=== PATIENT | male | born 1945 | race Caucasian/White ===

== ENCOUNTER 2021-04-13 03:01 | Emergency (ER) | payer OTHER, MEDICARE ==
[2021-04-13] MEDS ORDERED: Azithromycin 250 MG Tab PO ONE (04:09)
--- NOTE | 2021-04-13 04:15 | EDM.PDOC ---
ED HPI GENERAL MEDICAL PROBLEM - General Chief Complaint: General Stated Complaint: POST COVID ISSUES Time Seen by Provider: 04/13/21 04:09 - History of Present Illness INITIAL COMMENTS - FREE TEXT/NARRATIVE: HISTORY AND PHYSICAL: History of present illness: This is a 75-year-old gentleman who presents ER today to be evaluated after being diagnosed with Covid yesterday. Patient reports that he had a cough for approximately 1 month with no new symptoms. Patient reports that he follow got tested yesterday he has his family told that he probably has Covid given his symptoms. Patient reports that he had a dark productive cough over the last several days. Patient denies any recent fevers, shakes, chills, nausea, vomiting, diarrhea, change in taste or smell, generalized weakness, muscle aches. Patient has any headache or rhinorrhea. Patient reports no new symptoms within the last month. Review of systems: As per history of present illness and below otherwise all systems reviewed and negative. Past medical history: As per history of present illness and as reviewed below otherwise noncontributory. Surgical history: As per history of present illness and as reviewed below otherwise noncontributory. Social history: No reported history of drug abuse. Family history: As per history of present illness and as reviewed below otherwise noncontributory. Physical exam: This patient was seen and evaluated during the 2019 SARS-CoV-2 novel coronavirus pandemic period. Community viral transmission is ongoing at time of this encounter and the emergency department is operating under pandemic response procedures. Constitutional: Patient is oriented to person, place, and time. Appears well- developed and well-nourished. No distress. HEENT: Moist mucous membranes Head: Normocephalic and atraumatic Eyes: Right eye exhibits no discharge. Left eye exhibits no discharge. No scleral icterus Neck: Normal range of motion. No tracheal deviation present. Cardiovascular: Normal rate and regular rhythm. Pulmonary: Effort normal, no respiratory distress. No wheezing rales or rhonchi Abdominal: No distention Musculoskeletal: Normal range of motion Neurologic: Alert and oriented to person, place and time. Skin: [place], warm and dry. Psychiatric: Normal mood and affect. Behavior is normal. Judgment and thought content normal. Nursing note and vital signs have been reviewed Pulse ox 98% on room air. Patient speaking in full sentences without difficulty. Diagnostics: Chest Xray: Normal cardiac silhouette No infiltrates or effusions identified. No PTX No evidence of acute bony fracture. As interpreted by ER MD: Denis Franco: Zithromax Assessment and plan: 75-year-old gentleman who presents ER today secondary to wanting a checkup after being diagnosed with coronavirus. Patient did not get his Covid vaccine because he "does not want to put anything in his body ". I have discussed with the patient start him on Regeneron which he was amenable to however patient does not meet criteria secondary to no new symptoms that he has had over the last month. Patient reports that all the symptoms that he has currently he has had for approximately 1 month. I have discussed with the patient that he will need to purchase a pulse oximeter to keep a close eye on his oxygen level and to return to the ED if the oxygen level drops below 90%. If he is unable to obtain a pulse oximeter he needs to return to the ED if he starts having increasing shortness of breath. Patient has been instructed to follow-up with his primary care physician within the next week by phone for reevaluation. Reassessment at the time of disposition demonstrates that the patient is in no acute distress. The patient has remained stable throughout the entire ED visit and is without objective evidence for acute process requiring urgent intervention or hospitalization. The patient is stable for discharge, counseling is provided as documented above, discussed symptomatic treatment and specific conditions for return. I have spoken with the patient/caregiver and discussed todays findings, in addition to providing specific details for the plan of care. Questions are answered and there is agreement with the plan. Definitive disposition and diagnosis as appropriate pending reevaluation and review of above. - Related Data Allergies Allergy/AdvReac Type Severity Reaction Status Date / Time No Known Allergies Allergy Verified 05/12/18 12:11 Home Meds: Home Meds Amoxicillin 500 mg PO BID 05/12/18 [History] Cyanocobalamin (Vitamin B-12) [Cyanocobalamin Injection] 1,000 mcg IM ASDIRECTED 05/12/18 [History] Finasteride [Proscar] 5 mg PO DAILY 05/12/18 [History] Pantoprazole Sodium 40 mg PO DAILY 05/12/18 [History] Phenylephrine-Guaifenesin 10 - 40 mg PO ASDIRECTED 05/12/18 [History] Tamsulosin HCl 0.4 mg PO DAILY 05/12/18 [History] Azithromycin [Zithromax] 250 mg PO DAILY #4 tablet 04/13/21 [Rx] Past Medical History HEENT History: Reports: Hard of Hearing, Other (See Below) Other HEENT History: wears glasses, has upper and lower permanent dental bridge, has hearing aides Respiratory History: Reports: Sleep Apnea Other Respiratory History: recently tested for sleep apnea- just getting set up with CPAP Genitourinary History: Reports: BPH Neurological History: Reports: Concussion - Infectious Disease History Infectious Disease History: Reports: None - Past Surgical History GI Surgical History: Reports: EGD Other GI Surgeries/Procedures: was told he has "excess stomach acid" Other Male Surgeries/Procedures: hx of excision of undecended testicle, excision of Gynecomastia Social & Family History - Family History Family Medical History: No Pertinent Family History - Tobacco Use Tobacco Use Status *Q: Never Tobacco User - Caffeine Use Caffeine Use: Reports: Coffee - Recreational Drug Use Recreational Drug Use: No ED ROS GENERAL - Review of Systems Review Of Systems: See Below ED EXAM, GENERAL - Physical Exam Exam: See Below Course - Vital Signs Last Recorded V/S: Last Vital Signs Temp 97.8 F 04/13/21 03:04 Pulse 60 04/13/21 03:10 Resp 19 04/13/21 03:10 BP 131/67 04/13/21 03:10 Pulse Ox 94 L 04/13/21 03:10 - Orders/Labs/Meds Orders: Active Orders 24 hr Category Date Time Status Chest 2V [CR] Stat Exams 04/13/21 03:14 Taken Azithromycin [Zithromax] Med 04/13/21 04:09 Once 500 mg PO Q24H ONE Departure - Departure Time of Disposition: 04:13 Disposition: Home, Self-Care 01 Condition: Good Clinical Impression: COVID-19 virus infection - Discharge Information Instructions: What You Should Know About COVID-19 to Protect Yourself and Others - [facility], How to Wear and Take Off Your Mask - [facility] (08/24/2020), 10 Things You Can Do to Manage Your COVID-19 Symptoms at Home - [facility] (12/08/2020), COVID- 19: Quarantine vs. Isolation - [facility] (05/11/2020) Referrals: PCP,None [Primary Care Provider] - Additional Instructions: Your seen and evaluated in the ER today secondary to a recent diagnosis of coronavirus. Currently her pulse ox is 98 to 99% on room air. At this time, there is no definitive treatment for coronavirus. Given the concern regarding the increased cough, I will go ahead and get you started on some Zithromax which is an antibiotic. Please get that prescription filled and take it as directed. You should also obtain a pulse oximeter to keep an eye on your oxygen level. Please return to the ER if your oxygen level drops below 90%. If you do not have a pulse oximeter at home, please return to the ER immediately if you start having worsening shortness of breath. 1. Your COVID-19 screening is positive. That means you do have the coronavirus and you are considered contagious. Your vital signs and oxygen saturation are well enough that you were able to monitor your symptoms at home. Continue to monitor for trouble breathing, new confusion or inability to arouse, bluish lips or face or any of the other symptoms we discussed -if this occurs please return to the emergency room. 2. Please self quarantine over the next 10 days. Inform any persons that you have been in contact with since you started becoming symptomatic that you have tested positive; they should be made aware and take the appropriate steps as needed. 3. You can take NyQuil during the evening to help get a restful night sleep. May alternate Tylenol and ibuprofen as needed for pain and fever management. 4. The [facility] department will be calling you and following up with you. The [place] COVID 19 Hotline phone number , They are open Friday - Friday 7am - 7pm. Follow up with your primary care provider for re-evaluation and re-testing after the 10 day quarantine and discuss when you should be seen. The following information is given to patients seen in the emergency department who are being discharged to home. This information is to outline your options for follow-up care. We provide all patients seen in our emergency department with a follow-up referral. The need for follow-up, as well as the timing and circumstances, are variable depending upon the specifics of your emergency department visit. If you don't have a primary care physician on staff, we will provide you with a referral. We always advise you to contact your personal physician following an emergency department visit to inform them of the circumstance of the visit and for follow-up with them and/or the need for any referrals to a consulting specialist. The emergency department will also refer you to a specialist when appropriate. This referral assures that you have the opportunity for follow-up care with a specialist. All of these measure are taken in an effort to provide you with optimal care, which includes your follow-up. Under all circumstances we always encourage you to contact your private physician who remains a resource for coordinating your care. When calling for follow-up care, please make the office aware that this follow-up is from your recent emergency room visit. If for any reason you are refused follow-up, please contact the [facility] Emergency Department at and asked to speak to the emergency department charge nurse. [facility] [address] [place] [address] [id number] [address] Sepsis Event Note (ED) - Focused Exam Vital Signs: Vital Signs Temp Pulse Resp BP Pulse Ox 04/13/21 03:10 60 19 131/67 94 L 04/13/21 03:04 97.8 F 66 19 144/81 H 96 - My Orders Last 24 Hours: My Active Orders 04/13/21 03:14 Chest 2V [CR] Stat 04/13/21 04:09 Azithromycin [Zithromax] 500 mg PO Q24H ONE - Assessment/Plan Last 24 Hours: My Active Orders 04/13/21 03:14 Chest 2V [CR] Stat 04/13/21 04:09 Azithromycin [Zithromax] 500 mg PO Q24H ONE
--- NOTE | 2021-04-13 04:15 | CR ---
Indication: Cough Technique: Chest 2 views Comparison: None Findings/Impression: Cardiovascular and mediastinum: Normal heart size with aortic tortuosity and atherosclerotic calcification. Lungs and pleural spaces: No pleural effusion or pneumothorax. Calcified pleural plaques left mid hemithorax. No acute pulmonary consolidation. Bones and soft tissues: Diffuse idiopathic skeletal hyperostosis. Dictated by Isauro Funes MD @ 04/13/2021 4:14:09 AM (Electronically Signed)
== END 2021-04-13 04:42 | disposition home or self-care (01) ==
LOC: MW.ED 03:01
DX: U07.1 COVID-19 (principal); N40.0 Benign prostatic hyperplasia without lower urinary tract symptoms; Z79.899 Other long term (current) drug therapy
CPT/HCPCS: 71046; 99284; A9270

== ENCOUNTER 2021-04-14 15:00 | Emergency (ER) | payer OTHER, MEDICARE ==
[2021-04-14] MEDS ORDERED: Sodium Chloride 0.9% 2.5 ML Syringe FLUSH PRN (15:24)
[2021-04-14] MEDS ORDERED: Sodium Chloride 0.9% 10 ML Syringe FLUSH PRN (15:24)
[2021-04-14] MEDS ORDERED: Aspirin 81 MG Tab.Chew PO ONE (15:32)
--- NOTE | 2021-04-14 15:39 | PCM.EKG ---
#1 Interpretation EKG Date: 04/14/21 Time: 15:32 Rhythm: NSR Rate (Beats/Min): 69 Kamas: Normal P-Wave: Present QRS: Normal ST-T: Normal QT: Normal Comparison: NA - No Prior EKG EKG Interpretation Comments: Sinus Rhythm
[2021-04-14 16:18] LABS: BLOOD UREA NITROGEN,BUN 18 mg/dL (7.0-18.0); CARBON DIOXIDE,CO2 26.9 mmol/L (21.0-32.0); CHLORIDE,CL 102 mmol/L (98-107); GLUCOSE RANDOM 83 mg/dL (74-106); POTASSIUM,K 3.4 mmol/L (3.5-5.1); SODIUM,NA 137 mmol/L (136-148)
--- NOTE | 2021-04-14 18:19 | EDM.PDOC ---
ED HPI GENERAL MEDICAL PROBLEM - General Chief Complaint: Respiratory Problem Stated Complaint: Chest pain Time Seen by Provider: 04/14/21 15:30 Source of Information: Reports: Patient History Limitations: Reports: No Limitations - History of Present Illness INITIAL COMMENTS - FREE TEXT/NARRATIVE: HISTORY AND PHYSICAL: History of present illness: Patient is a 75-year-old male with known positive COVID-19 who presents to the emergency room with complaints of chest pain. He has had a cough x 1 month (which he believes is when he started with COVID). Patient states his chest pain has been going on for several days or maybe weeks, today is not any worse than it has been. Nothing makes the discomfort better or worse. States he is not sure if this is "all because of COVID or something else". Was seen yesterday in the ED for evaluation, had a CXR which was normal. Patient denies any fever, chills, headache, change in vision, syncope or near syncope. Denies any back pain, shortness of breath, abdominal pain, nausea, vomiting, diarrhea, constipation or dysuria. Has not noted any blood in urine or stool. Patient has been eating and drinking appropriately. Has not had the COVID vaccination. Review of systems: As per history of present illness and below otherwise all systems reviewed and negative. Past medical history: As per history of present illness and as reviewed below otherwise noncontributory. Surgical history: As per history of present illness and as reviewed below otherwise noncontributory. Social history: See social history for further information Family history: As per history of present illness and as reviewed below otherwise noncontributory. Physical exam: General: Well developed and well nourished 75 year old male. Alert and orientate d x 3. Nontoxic in appearance and in no acute distress. Vital signs are stable and have been reviewed by me. Nursing notes were reviewed. HEENT: Atraumatic, normocephalic, pupils equal and reactive bilaterally, negative for conjunctival pallor or scleral icterus, mucous membranes moist, TMs normal bilaterally, throat clear, neck supple, nontender, trachea midline. No drooling or trismus noted. No meningeal signs. No hot potato voice noted. Lungs: Clear to auscultation bilaterally. No wheezes, rales, or rhonchi. Chest nontender. Normal work of breathing, no accessory muscles used. Heart: S1S2, regular rate and rhythm without overt murmur, gallops, or rubs. No JVD. No peripheral edema Abdomen: Soft, nondistended, nontender. Normoactive bowel sounds. Negative for masses or costovertebral tenderness. Skin: Intact, warm, dry. No lesions or rashes noted. Hematologic: No petechiae or purpra. Mucosa appropriate color and normal nail bed color and refill. Extremities: Atraumatic, moves all extremities per self without difficulty or deficits, negative for cords or calf pain. Neurovascular unremarkable. Neuro: Awake, alert, oriented. Cranial nerves II through XII unremarkable. Cerebellum unremarkable. Motor and sensory unremarkable throughout. Exam nonfocal. Psychiatric: Mood and affect are appropriate. Normal thought process. Answering questions appropriately. Please note that the patient was seen and evaluated during the 2019 SARS-CoV-2 novel coronavirus pandemic period. Community viral transmission is ongoing at time of this encounter and the emergency department is operating under pandemic response procedures. Medical Decision Making: Patient is a 75-year-old male who is known COVID-19 positive who presents to the emergency room with several day history of chest pain and 1 month history of cough. Patient states he is unsure if this is related to COVID-19 illness or "something else". He was seen on 04/13/2021 and had a chest x-ray which was normal. Due to patient's continued concern I will do basic lab work, troponin and TSH. We will also do a CTA of his chest. Lab work is unremarkable. Initial troponin and repeat 3-hour troponin are both negative. CT of the chest shows findings consistent with COVID. Calcified pleural plaques. No evidence of pulmonary embolism. Patient's vital signs remained stable. We did discuss admission versus discharge to home as he is low risk. HEART Score for Major Cardiac Events: History: 0 EK Age: +2 Risk factors: 0 Initial troponin: 0 Score: 2 points (Low risk) I have talked with the patient about today's findings, in addition to providing specific details for plan of care. Reassessment at the time of disposition demonstrates that the patient is in no acute distress. The patient is stable for discharge, counseling was provided and we discussed in great detail signs and symptoms that would prompt them to return to the Emergency Department. Medication, follow up and supportive care measures were reviewed and discussed. Voices understanding and is agreeable to plan of care. Denies any further questions or concerns at this time. Diagnostics: CBC, CMP, TSH, Troponin, CT chest, EKG Therapeutics: None Prescription: None Impression: COVID-19 Chest pain nonspecific Plan: 1. You were evaluated today on an emergent basis. Your lab work including cardiac enzymes, EKG and CT of your chest are within normal limits. Symptoms are likely due to COVID-19 infection, no acute concern for heart attack at this time. I do want you to continue monitoring her symptoms closely. If your symptoms should worsen, new symptoms develop or any of the signs and symptoms we discussed should arise please return to the emergency room or call 911 (if needed). 2. You can alternate Tylenol and ibuprofen as needed for pain and fever management. 3. We encourage you to follow up with your primary care provider and/or recommended specialist in the next few days for re-evaluation and further c are/management. Definitive disposition and diagnosis as appropriate pending reevaluation and review of above. - Related Data Allergies Allergy/AdvReac Type Severity Reaction Status Date / Time No Known Allergies Allergy Verified 04/14/21 15:29 Home Meds: Home Meds Amoxicillin 500 mg PO BID 05/12/18 [History] Cyanocobalamin (Vitamin B-12) [Cyanocobalamin Injection] 1,000 mcg IM ASDIRECTED 05/12/18 [History] Finasteride [Proscar] 5 mg PO DAILY 05/12/18 [History] Pantoprazole Sodium 40 mg PO DAILY 05/12/18 [History] Phenylephrine-Guaifenesin 10 - 40 mg PO ASDIRECTED 05/12/18 [History] Tamsulosin HCl 0.4 mg PO DAILY 05/12/18 [History] Azithromycin [Zithromax] 250 mg PO DAILY #4 tablet 04/13/21 [Rx] Past Medical History HEENT History: Reports: Hard of Hearing, Other (See Below) Other HEENT History: wears glasses, has upper and lower permanent dental bridge, has hearing aides Respiratory History: Reports: Sleep Apnea Other Respiratory History: recently tested for sleep apnea- just getting set up with CPAP Genitourinary History: Reports: BPH Neurological History: Reports: Concussion - Infectious Disease History Infectious Disease History: Reports: None - Past Surgical History GI Surgical History: Reports: EGD Other GI Surgeries/Procedures: was told he has "excess stomach acid" Other Male Surgeries/Procedures: hx of excision of undecended testicle, excision of Gynecomastia Social & Family History - Family History Family Medical History: No Pertinent Family History - Tobacco Use Second Hand Smoke Exposure: No - Caffeine Use Caffeine Use: Reports: None - Recreational Drug Use Recreational Drug Use: No ED ROS GENERAL - Review of Systems Review Of Systems: Comprehensive ROS is negative, except as noted in HPI. ED EXAM, GENERAL - Physical Exam Exam: See Below (See dictation) Course - Vital Signs Last Recorded V/S: Last Vital Signs Temp 100.3 F 04/14/21 15:39 Pulse 68 04/14/21 19:21 Resp 22 H 04/14/21 15:31 BP 142/79 H 04/14/21 19:21 Pulse Ox 94 L 04/14/21 19:21 - Orders/Labs/Meds Orders: Active Orders 24 hr Category Date Time Status Sodium Chloride 0.9% [Saline Flush] Med 04/14/21 15:24 Active 10 ml FLUSH ASDIRECTED PRN Sodium Chloride 0.9% [Saline Flush] Med 04/14/21 15:24 Active 2.5 ml FLUSH ASDIRECTED PRN Saline Lock Insert [OM.PC] Stat Oth 04/14/21 15:24 Ordered Medication Orders Sodium Chloride (Sodium Chloride 0.9% 10 Ml Syringe) 10 ml FLUSH ASDIRECTED PRN PRN Reason: Keep Vein Open Last Admin: 04/14/21 15:48 Dose: 10 ml Documented by: MARIAM Sodium Chloride (Sodium Chloride 0.9% 2.5 Ml Syringe) 2.5 ml FLUSH ASDIRECTED PRN PRN Reason: Keep Vein Open Last Admin: 04/14/21 15:48 Dose: 2.5 ml Documented by: MARIAM Labs: Laboratory Tests 04/14/21 04/14/21 04/14/21 Range/Units 15:35 15:35 18:21 WBC 5.05 (4.0-11.0) K/uL RBC 4.77 (4.50-5.90) M/uL Hgb 14.5 (13.0-17.0) g/dL Hct 42.6 (38.0-50.0) % MCV 89.3 (80.0-98.0) fL MCH 30.4 (27.0-32.0) pg MCHC 34.0 (31.0-37.0) g/dL RDW Std Deviation 46.8 (28.0-62.0) fl RDW Coeff of [place] 14 (11.0-15.0) % Plt Count 193 (150-400) K/uL MPV 10.80 (7.40-12.00) fL Neut % (Auto) 72.8 (48.0-80.0) % Lymph % (Auto) 13.7 L (16.0-40.0) % [place] % (Auto) 13.3 (0.0-15.0) % Eos % (Auto) 0.0 (0.0-7.0) % Baso % (Auto) 0.2 (0.0-1.5) % Neut # (Auto) 3.7 (1.4-5.7) K/uL Lymph # (Auto) 0.7 (0.6-2.4) K/uL [place] # (Auto) 0.7 (0.0-0.8) K/uL Eos # (Auto) 0.0 (0.0-0.7) K/uL Baso # (Auto) 0.0 (0.0-0.1) K/uL Nucleated RBC % 0.0 /100WBC Nucleated RBCs # 0 K/uL Sodium 137 (136-148) mmol/L Potassium 3.4 L (3.5-5.1) mmol/L Chloride 102 (98-107) mmol/L Carbon Dioxide 26.9 (21.0-32.0) mmol/L BUN 18 (7.0-18.0) mg/dL Creatinine 1.1 (0.8-1.3) mg/dL Est Cr Clr Drug Dosing 58.02 mL/min Estimated GFR (MDRD) > 60.0 ml/min Glucose 83 (74-106) mg/dL Calcium 8.0 L (8.5-10.1) mg/dL Total Bilirubin 0.4 (0.2-1.0) mg/dL AST 35 (15-37) IU/L ALT 35 (14-63) IU/L Alkaline Phosphatase 73 (46-116) U/L Troponin I < 0.050 < 0.050 (0.000-0.056) ng/mL Total Protein 7.3 (6.4-8.2) g/dL Albumin 3.1 L (3.4-5.0) g/dL Globulin 4.2 H (2.6-4.0) g/dL Albumin/Globulin Ratio 0.7 L (0.9-1.6) TSH, Ultra Sensitive 2.46 (0.36-3.74) uIU/mL Meds: Medications Generic Name Dose Route Start Last Admin Trade Name Freq PRN Reason Stop Dose Admin Sodium Chloride 10 ml 04/14/21 15:24 04/14/21 15:48 Sodium Chloride 0.9% 10 Ml Syringe FLUSH 10 ml ASDIRECTED PRN Administration Keep Vein Open Sodium Chloride 2.5 ml 04/14/21 15:24 04/14/21 15:48 Sodium Chloride 0.9% 2.5 Ml Syringe FLUSH 2.5 ml ASDIRECTED PRN Administration Keep Vein Open Discontinued Medications Generic Name Dose Route Start Last Admin Trade Name Freq PRN Reason Stop Dose Admin Aspirin 324 mg 04/14/21 15:32 04/14/21 15:48 Aspirin 81 Mg Tab.Chew PO 04/14/21 15:33 324 mg ONETIME ONE Administration Iopamidol 100 ml 04/14/21 19:17 04/14/21 19:18 Iopamidol 755 Mg/Ml 500 Ml Multipack Bottle IVPUSH 04/14/21 19:18 100 ml ONETIME ONE Administration Departure - Departure Time of Disposition: 19:39 Disposition: Home, Self-Care 01 Clinical Impression: Nonspecific chest pain, COVID-19 Instructions: 10 Things You Can Do to Manage Your COVID-19 Symptoms at Home - [facility] (12/08/2020) Referrals: Abisai Kaye [employer] [Primary Care Provider] - Forms: ED Department Discharge Additional Instructions: The following information is given to patients seen in the emergency department who are being discharged to home. This information is to outline your options for follow-up care. We provide all patients seen in our emergency department with a follow-up referral. The need for follow-up, as well as the timing and circumstances, are variable depending upon the specifics of your emergency department visit. If you don't have a primary care physician on staff, we will provide you with a referral. We always advise you to contact your personal physician following an emergency department visit to inform them of the circumstance of the visit and for follow-up with them and/or the need for any referrals to a consulting specialist. The emergency department will also refer you to a specialist when appropriate. This referral assures that you have the opportunity for follow-up care with a specialist. All of these measure are taken in an effort to provide you with optimal care, which includes your follow-up. Under all circumstances we always encourage you to contact your private physician who remains a resource for coordinating your care. When calling for follow-up care, please make the office aware that this follow-up is from your recent emergency room visit. If for any reason you are refused follow-up, please contact the [facility] Emergency Department at and asked to speak to the emergency department charge nurse. [facility] [address] [place] [address] [id number] [facility] [address] [place] [id number] Thank you for choosing the [facility] emergency department in [place] for your medical needs today. It was a pleasure caring for you. Today you were seen in the emergency department for chest pain 1. You were evaluated today on an emergent basis. Your lab work including cardiac enzymes, EKG and CT of your chest are within normal limits. Symptoms are likely due to COVID-19 infection, no acute concern for heart attack at this time. I do want you to continue monitoring her symptoms closely. If your symptoms should worsen, new symptoms develop or any of the signs and symptoms we discussed should arise please return to the emergency room or call 911 (if needed). 2. You can alternate Tylenol and ibuprofen as needed for pain and fever management. 3. We encourage you to follow up with your primary care provider and/or recommended specialist in the next few days for re-evaluation and further care/management. : Sepsis Event Note (ED) - Evaluation Sepsis Screening Result: No Definite Risk - Focused Exam Vital Signs: Vital Signs Temp Temp Pulse Resp BP Pulse Ox 04/14/21 19:21 68 142/79 H 94 L 04/14/21 19:00 71 142/79 H 95 04/14/21 18:00 68 135/74 96 04/14/21 17:00 62 125/65 98 04/14/21 16:22 65 127/70 93 L 04/14/21 15:39 100.3 F 04/14/21 15:31 97.5 F 73 22 H 121/67 94 L - My Orders Last 24 Hours: My Active Orders 04/14/21 15:24 Sodium Chloride 0.9% [Saline Flush] 10 ml FLUSH ASDIRECTED PRN Sodium Chloride 0.9% [Saline Flush] 2.5 ml FLUSH ASDIRECTED PRN Saline Lock Insert [OM.PC] Stat - Assessment/Plan Last 24 Hours: My Active Orders 04/14/21 15:24 Sodium Chloride 0.9% [Saline Flush] 10 ml FLUSH ASDIRECTED PRN Sodium Chloride 0.9% [Saline Flush] 2.5 ml FLUSH ASDIRECTED PRN Saline Lock Insert [OM.PC] Stat
[2021-04-14] MEDS ORDERED: Iopamidol 755 MG/ML 500 ML Multipack Bottle IVPUSH ONE (19:17)
--- NOTE | 2021-04-14 19:37 | CT ---
Indication: Chest pain. COVID positive. Technique: Multiple contiguous axial images were obtained from the thoracic inlet through the upper abdomen after the intravenous administration of 100 milliliters Isovue 370. Please note that all CT scans at this facility use dose modulation, iterative reconstruction, and/or weight-based dosing when appropriate to reduce radiation dose to as low as reasonably achievable. Comparison: None Findings: Aorta is normal in size. No pulmonary embolism is identified. The aorta is normal caliber. There is no evidence of aortic dissection. No pericardial effusion is identified. The visualized portions of liver, spleen, pancreas, adrenals, kidneys are normal. Postsurgical changes of cholecystectomy are identified. No intrahepatic biliary ductal dilatation is identified. No hydronephrosis is identified. Parapelvic cysts are identified on the left. Bilateral patchy ground-glass opacities are identified. Calcified pleural plaques are identified. No infiltrate, pleural effusion, or pneumothorax is identified. Impression: Findings consistent with COVID. Calcified pleural plaques. No evidence of pulmonary embolism. Please note that all CT scans at this facility use dose modulation, iterative reconstruction, and/or weight-based dosing when appropriate to reduce radiation dose to as low as reasonably achievable. Dictated by Julisa Luna MD @ 04/14/2021 7:36:48 PM (Electronically Signed)
== END 2021-04-14 19:52 | disposition home or self-care (01) ==
LOC: MW.ED 15:00
DX: R07.9 Chest pain, unspecified (principal); U07.1 COVID-19; N40.0 Benign prostatic hyperplasia without lower urinary tract symptoms; Z79.899 Other long term (current) drug therapy
CPT/HCPCS: 36415; 71275; 80053; 84443; 84484; 85025; 93005; 99285; A9270; Q9967

== ENCOUNTER 2021-04-17 20:05 | Inpatient (IN) | payer OTHER, MEDICARE ==
[2021-04-17] MEDS ORDERED: Sodium Chloride 0.9% 2.5 ML Syringe FLUSH PRN (20:24)
[2021-04-17] MEDS ORDERED: Albuterol/Ipratropium 3.0-0.5 MG/3 ML Neb Soln NEB ONE (20:24)
[2021-04-17] MEDS ORDERED: Sodium Chloride 0.9% 10 ML Syringe FLUSH PRN (20:24)
[2021-04-17] MEDS ORDERED: Sodium Chloride 0.9% 1,000 ML IV ONE (20:24)
[2021-04-17] MEDS ORDERED: Dexamethasone 10 MG/ML SDV IVPUSH ONE (20:35)
[2021-04-17 20:48] LABS: BLOOD UREA NITROGEN,BUN 24 mg/dL (7.0-18.0); CARBON DIOXIDE,CO2 24.5 mmol/L (21.0-32.0); CHLORIDE,CL 99 mmol/L (98-107); GLUCOSE RANDOM 172 mg/dL (74-106); POTASSIUM,K 3.6 mmol/L (3.5-5.1); SODIUM,NA 136 mmol/L (136-148)
[2021-04-17] MEDS ORDERED: Iopamidol 755 MG/ML 500 ML Multipack Bottle IVPUSH STA (21:28)
--- NOTE | 2021-04-17 22:02 | CT ---
INDICATION: Shortness of breath. TECHNIQUE: IV contrast-enhanced CT chest, pulmonary embolism protocol. 100 mL Isovue-370 injected. COMPARISON: 04/14/2021 CT. FINDINGS: No pulmonary emboli. There are peripheral predominant irregular ground-glass opacities bilaterally consistent with COVID-19 pneumonia. These have progressed since the prior exam. No pneumothorax. No pleural or pericardial effusion. No adenopathy. Cholecystectomy. 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 IMPRESSION: 1. No pulmonary emboli. 2. Worsening COVID-19 pneumonia. 3. 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 Please note that all CT scans at this facility use dose modulation, iterative reconstruction, and/or weight-based dosing when appropriate to reduce radiation dose to as low as reasonably achievable. Dictated by Alexi Pandey MD @ 04/17/2021 10:01:55 PM (Electronically Signed)
--- NOTE | 2021-04-17 23:24 | EDM.PDOC ---
ED HPI GENERAL MEDICAL PROBLEM - General Chief Complaint: General Stated Complaint: ALTERED MENTAL STATUS Time Seen by Provider: 04/17/21 20:20 - History of Present Illness INITIAL COMMENTS - FREE TEXT/NARRATIVE: HISTORY AND PHYSICAL: History of present illness: This is a 75-year-old gentleman with no significant past medical history who has been recently diagnosed with Covid approximately 3 days ago who was seen in the ED by me 3 days ago and was seen again by one of our practitioners 2 days ago for worsening symptoms but was still not hypoxic who presents ER today secondary to generalized weakness, episodes of confusion, increased shortness of breath, nausea has been progressively getting worse over the last couple days. During patient's evaluation by me he had requested initiation of Regeneron therapy however patient symptoms were greater than 10 days out so it was unclear whether or not he would be a candidate for Regeneron therapy. Patient reports he had some tactile fevers at home. Patient reports cough which is nonproductive. Patient denies any abdominal pain, dysuria, frequency, urgency. Review of systems: As per history of present illness and below otherwise all systems reviewed and negative. Past medical history: As per history of present illness and as reviewed below otherwise noncontributory. Surgical history: As per history of present illness and as reviewed below otherwise noncontri butory. Social history: No reported history of drug abuse. Family history: As per history of present illness and as reviewed below otherwise noncontributory. Physical exam: This patient was seen and evaluated during the 2019 SARS-CoV-2 novel coronavirus pandemic period. Community viral transmission is ongoing at time of this encounter and the emergency department is operating under pandemic response procedures. Constitutional: Patient is oriented to person, place, and time. Appears well- developed and well-nourished. No distress. HEENT: Moist mucous membranes Head: Normocephalic and atraumatic Eyes: Right eye exhibits no discharge. Left eye exhibits no discharge. No scleral icterus Neck: Normal range of motion. No tracheal deviation present. Cardiovascular: Normal rate and regular rhythm. Pulmonary: Effort normal, no respiratory distress. Patient with mild expiratory wheezing and rhonchi. Abdominal: No distention Musculoskeletal: Normal range of motion Neurologic: Alert and oriented to person, place and time. Skin: [place], warm and dry. Psychiatric: Normal mood and affect. Behavior is normal. Judgment and thought content normal. Nursing note and vital signs have been reviewed Diagnostics: CTA of the chest reveals no pulmonary embolism but does show worsening Covid pneumonia EKG April 17, 2021 at 8:49 PM EKG: As interpreted by ER physician: Denis: Nonspecific ST-T wave abnormalities Normal axis No evidence of ST elevation VA Normal sinus rhythm heart rate of 65 CBC, CMP within normal limits. Pulse ox 86 to 88% on room air Therapeutics: DuoNeb x1 Decadron 10 mg IV Assessment and plan: 75-year-old gentleman who presents ER today secondary to increasing shortness of breath and worsening symptoms since his diagnosis of Covid. Upon initial evaluation in ER the patient's pulse ox was 86% on room air. Patient's pulse ox increases to 84% with 3 L of nasal cannula. Patient was given 1 DuoNeb treatment and Decadron and was monitored in the ED. Patient's pulse ox on room air is now 88%. Patient is resting comfortably and does not appear to be extremely tachypneic. Given the patient's hypoxia and his recent diagnosis and a progression in his decline in his pulse oximeter over the last several days I feel patient will need to be admitted to the hospital for oxygen therapy and likely treatment for remdesivir. Definitive disposition and diagnosis as appropriate pending reevaluation and review of above. - Related Data Allergies Allergy/AdvReac Type Severity Reaction Status Date / Time No Known Allergies Allergy Verified 04/17/21 20:10 Home Meds: Home Meds Amoxicillin 500 mg PO BID 05/12/18 [History] Cyanocobalamin (Vitamin B-12) [Cyanocobalamin Injection] 1,000 mcg IM ASDIRECTED 05/12/18 [History] Finasteride [Proscar] 5 mg PO DAILY 05/12/18 [History] Pantoprazole Sodium 40 mg PO DAILY 05/12/18 [History] Phenylephrine-Guaifenesin 10 - 40 mg PO ASDIRECTED 05/12/18 [History] Tamsulosin HCl 0.4 mg PO DAILY 05/12/18 [History] Azithromycin [Zithromax] 250 mg PO DAILY #4 tablet 04/13/21 [Rx] Past Medical History HEENT History: Reports: Hard of Hearing, Other (See Below) Other HEENT History: wears glasses, has upper and lower permanent dental bridge, has hearing aides Respiratory History: Reports: Sleep Apnea Other Respiratory History: recently tested for sleep apnea- just getting set up with CPAP Genitourinary History: Reports: BPH Neurological History: Reports: Concussion - Infectious Disease History Infectious Disease History: Reports: None - Past Surgical History GI Surgical History: Reports: EGD Other GI Surgeries/Procedures: was told he has "excess stomach acid" Other Male Surgeries/Procedures: hx of excision of undecended testicle, excision of Gynecomastia Social & Family History - Family History Family Medical History: No Pertinent Family History - Tobacco Use Tobacco Use Status *Q: Never Tobacco User - Caffeine Use Caffeine Use: Reports: None - Recreational Drug Use Recreational Drug Use: No ED ROS GENERAL - Review of Systems Review Of Systems: See Below ED EXAM, GENERAL - Physical Exam Exam: See Below Course - Vital Signs Last Recorded V/S: Last Vital Signs Temp 96.2 F L 04/17/21 20:10 Pulse 61 04/17/21 23:00 Resp 22 H 04/17/21 23:00 BP 99/60 04/17/21 23:00 Pulse Ox 96 04/17/21 23:00 - Orders/Labs/Meds Orders: Active Orders 24 hr Category Date Time Status UA W/TARAN RFLX IF INDICATED [URIN] Stat Lab 04/17/21 20:25 Ordered Sodium Chloride 0.9% [Saline Flush] Med 04/17/21 20:24 Active 10 ml FLUSH ASDIRECTED PRN Sodium Chloride 0.9% [Saline Flush] Med 04/17/21 20:24 Active 2.5 ml FLUSH ASDIRECTED PRN Saline Lock Insert [OM.PC] Stat Oth 04/17/21 20:24 Ordered Medication Orders Sodium Chloride (Sodium Chloride 0.9% 10 Ml Syringe) 10 ml FLUSH ASDIRECTED PRN PRN Reason: Keep Vein Open Last Admin: 04/17/21 20:35 Dose: 10 ml Documented by: RAMÓN Sodium Chloride (Sodium Chloride 0.9% 2.5 Ml Syringe) 2.5 ml FLUSH ASDIRECTED PRN PRN Reason: Keep Vein Open Last Admin: 04/17/21 20:35 Dose: 2.5 ml Documented by: RAMÓN Labs: Laboratory Tests 04/17/21 04/17/21 Range/Units 20:15 20:15 WBC 4.09 (4.0-11.0) K/uL RBC 5.50 (4.50-5.90) M/uL Hgb 17.0 (13.0-17.0) g/dL Hct 47.8 (38.0-50.0) % MCV 86.9 (80.0-98.0) fL MCH 30.9 (27.0-32.0) pg MCHC 35.6 (31.0-37.0) g/dL RDW Std Deviation 44.0 (28.0-62.0) fl RDW Coeff of [place] 14 (11.0-15.0) % Plt Count 178 (150-400) K/uL MPV 10.90 (7.40-12.00) fL Neut % (Auto) 72.6 (48.0-80.0) % Lymph % (Auto) 15.2 L (16.0-40.0) % [place] % (Auto) 12.0 (0.0-15.0) % Eos % (Auto) 0.0 (0.0-7.0) % Baso % (Auto) 0.2 (0.0-1.5) % Neut # (Auto) 3.0 (1.4-5.7) K/uL Lymph # (Auto) 0.6 (0.6-2.4) K/uL [place] # (Auto) 0.5 (0.0-0.8) K/uL Eos # (Auto) 0.0 (0.0-0.7) K/uL Baso # (Auto) 0.0 (0.0-0.1) K/uL Nucleated RBC % 0.0 /100WBC Nucleated RBCs # 0 K/uL Sodium 136 (136-148) mmol/L Potassium 3.6 (3.5-5.1) mmol/L Chloride 99 (98-107) mmol/L Carbon Dioxide 24.5 (21.0-32.0) mmol/L BUN 24 H (7.0-18.0) mg/dL Creatinine 1.2 (0.8-1.3) mg/dL Est Cr Clr Drug Dosing TNP Estimated GFR (MDRD) 59.0 ml/min Glucose 172 H (74-106) mg/dL Calcium 8.3 L (8.5-10.1) mg/dL Magnesium 2.2 (1.8-2.4) mg/dL Total Bilirubin 0.6 (0.2-1.0) mg/dL AST 57 H (15-37) IU/L ALT 54 (14-63) IU/L Alkaline Phosphatase 75 (46-116) U/L Troponin I < 0.050 (0.000-0.056) ng/mL Total Protein 7.8 (6.4-8.2) g/dL Albumin 3.0 L (3.4-5.0) g/dL Globulin 4.8 H (2.6-4.0) g/dL Albumin/Globulin Ratio 0.6 L (0.9-1.6) Meds: Medications Generic Name Dose Route Start Last Admin Trade Name Freq PRN Reason Stop Dose Admin Sodium Chloride 10 ml 04/17/21 20:24 04/17/21 20:35 Sodium Chloride 0.9% 10 Ml Syringe FLUSH 10 ml ASDIRECTED PRN Administration Keep Vein Open Sodium Chloride 2.5 ml 04/17/21 20:24 04/17/21 20:35 Sodium Chloride 0.9% 2.5 Ml Syringe FLUSH 2.5 ml ASDIRECTED PRN Administration Keep Vein Open Discontinued Medications Generic Name Dose Route Start Last Admin Trade Name Freq PRN Reason Stop Dose Admin Albuterol/Ipratropium 3 ml 04/17/21 20:24 04/17/21 20:35 Albuterol/Ipratropium 3.0-0.5 Mg/3 Ml Neb Soln NEB 04/17/21 20:25 3 ml ONETIME ONE Administration Dexamethasone 10 mg 04/17/21 20:35 04/17/21 20:42 Dexamethasone 10 Mg/Ml Sdv IVPUSH 04/17/21 20:36 10 mg ONETIME ONE Administration Sodium Chloride 1,000 mls @ 999 mls/hr 04/17/21 20:24 04/17/21 20:35 Normal Saline IV 04/17/21 21:24 999 mls/hr .Bolus ONE Administration Iopamidol 100 ml 04/17/21 21:28 04/17/21 21:28 Iopamidol 755 Mg/Ml 500 Ml Multipack Bottle IVPUSH 04/17/21 21:29 100 ml ONETIME STA Administration Departure - Departure Time of Disposition: 23:21 Disposition: Admitted As Inpatient 66 Condition: Good Clinical Impression: Pneumonia due to COVID-19 virus, Respiratory failure with hypoxia - Discharge Information Referrals: PCP,None [Primary Care Provider] - Sepsis Event Note (ED) - Focused Exam Vital Signs: Vital Signs Temp Pulse Resp BP Pulse Ox 04/17/21 23:00 61 22 H 99/60 96 04/17/21 22:00 73 22 H 105/76 90 L 04/17/21 21:00 72 22 H 102/75 91 L 04/17/21 20:10 96.2 F L 77 22 H 128/81 91 L - My Orders Last 24 Hours: My Active Orders 04/17/21 20:24 Sodium Chloride 0.9% [Saline Flush] 10 ml FLUSH ASDIRECTED PRN Sodium Chloride 0.9% [Saline Flush] 2.5 ml FLUSH ASDIRECTED PRN Saline Lock Insert [OM.PC] Stat 04/17/21 20:25 UA W/TARAN RFLX IF INDICATED [URIN] Stat - Assessment/Plan Last 24 Hours: My Active Orders 04/17/21 20:24 Sodium Chloride 0.9% [Saline Flush] 10 ml FLUSH ASDIRECTED PRN Sodium Chloride 0.9% [Saline Flush] 2.5 ml FLUSH ASDIRECTED PRN Saline Lock Insert [OM.PC] Stat 04/17/21 20:25 UA W/TARAN RFLX IF INDICATED [URIN] Stat
[2021-04-17] MEDS ORDERED: REMDESIVIR 200 MG in Sodium Chloride 0.9% 250 ML IV ONE (23:29)
--- NOTE | 2021-04-17 23:49 | PCM.HP.2 ---
H&P History of Present Illness - General Date of Service: 04/17/21 Admit Problem/Dx: Admission Diagnosis/Problem Admission Diagnosis/Problem Flu like symptoms and Generalized weakness. - History of Present Illness Other HPI/Comments: This is a 75-year-old gentleman with no significant past medical history who pr esented to the ED with generalized weakness, flu like symptoms, cough and shortness of breath. His symptoms had been on for at least 10 days prior to today's admission. He was seen in the ED 2 and 3 days ago for similar symptoms. He progressively felt more short of breath and felt like he needed to return to the hospital for hospitalization. He was diagnosed with COVID 19 three days ago. He denies having any recorded fevers at home. His cousin with whom he lives with also tested positive for covid 19. CTA in the ED was negative for P.E. 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 - Related Data Allergies/Adverse Reactions: Allergies Allergy/AdvReac Type Severity Reaction Status Date / Time No Known Allergies Allergy Verified 04/18/21 05:19 Home Medications: Home Meds Cyanocobalamin (Vitamin B-12) [Cyanocobalamin Injection] 1,000 mcg IM Q90D 05/12/18 [History] Finasteride [Proscar] 5 mg PO DAILY 05/12/18 [History] Pantoprazole Sodium 40 mg PO DAILY 05/12/18 [History] Tamsulosin HCl 0.4 mg PO WITHDINNER 05/12/18 [History] Ascorbic Acid 500 mg PO DAILY 04/18/21 [History] Azithromycin [Zithromax] 250 mg PO DAILY 04/18/21 [History] Calcium Carbonate [Calcium] 500 mg PO DAILY 04/18/21 [History] Carboxymethylcellulose Sodium [Refresh Liquigel 1%] 1 drop EYEBOTH QID PRN 04/18/21 [History] Cholecalciferol (Vitamin D3) [Vitamin D3] 25 mcg PO DAILY 04/18/21 [History] Cyanocobalamin (Vitamin B-12) [B-12] 1,000 mcg PO DAILY 04/18/21 [History] Famotidine 20 mg PO BEDTIME 04/18/21 [History] Mineral Oil/Petrolatum,White [Refresh P.M.] 1 applic EYEBOTH BEDTIME PRN 04/18/21 [History] Terbinafine [LamISIL] 250 mg PO Q24H 04/18/21 [History] Zinc 50 mg PO DAILY 04/18/21 [History] Past Medical History HEENT History: Reports: Hard of Hearing, Other (See Below) Other HEENT History: wears glasses, has upper and lower permanent dental bridge, has hearing aides Respiratory History: Reports: Sleep Apnea Other Respiratory History: recently tested for sleep apnea- just getting set up with CPAP Genitourinary History: Reports: BPH Neurological History: Reports: Concussion - Infectious Disease History Infectious Disease History: Reports: None - Past Surgical History GI Surgical History: Reports: EGD Other GI Surgeries/Procedures: was told he has "excess stomach acid" Other Male Surgeries/Procedures: hx of excision of undecended testicle, excision of Gynecomastia Social & Family History - Family History Family Medical History: No Pertinent Family History - Tobacco Use Tobacco Use Status *Q: Never Tobacco User - Caffeine Use Caffeine Use: Reports: None - Recreational Drug Use Recreational Drug Use: No H&P Review of Systems - Review of Systems: Review Of Systems: See Below Exam - Exam Exam: See Below - Vital Signs Vital Signs: Last Vital Signs Temp 96.2 F L 04/17/21 20:10 Pulse 61 04/17/21 23:00 Resp 22 H 04/17/21 23:00 BP 99/60 04/17/21 23:00 Pulse Ox 96 04/17/21 23:00 - Exam Physical Exam Comments:: Exam: Elderly male. In no distress CVS: S1S2 appreciated. RRR lungs: clear but diminished bilaterally. pa: soft, non tender ext: no clubbing, cyanosis or edema neuro: no focal deficits. - Patient Data Lab Results Last 24 hrs: Laboratory Results - last 24 hr 04/17/21 04/17/21 04/17/21 Range/Units 20:15 20:15 23:00 WBC 4.09 (4.0-11.0) K/uL RBC 5.50 (4.50-5.90) M/uL Hgb 17.0 (13.0-17.0) g/dL Hct 47.8 (38.0-50.0) % MCV 86.9 (80.0-98.0) fL MCH 30.9 (27.0-32.0) pg MCHC 35.6 (31.0-37.0) g/dL RDW Std Deviation 44.0 (28.0-62.0) fl RDW Coeff of [place] 14 (11.0-15.0) % Plt Count 178 (150-400) K/uL MPV 10.90 (7.40-12.00) fL Neut % (Auto) 72.6 (48.0-80.0) % Lymph % (Auto) 15.2 L (16.0-40.0) % [place] % (Auto) 12.0 (0.0-15.0) % Eos % (Auto) 0.0 (0.0-7.0) % Baso % (Auto) 0.2 (0.0-1.5) % Neut # (Auto) 3.0 (1.4-5.7) K/uL Lymph # (Auto) 0.6 (0.6-2.4) K/uL [place] # (Auto) 0.5 (0.0-0.8) K/uL Eos # (Auto) 0.0 (0.0-0.7) K/uL Baso # (Auto) 0.0 (0.0-0.1) K/uL Nucleated RBC % 0.0 /100WBC Nucleated RBCs # 0 K/uL Sodium 136 (136-148) mmol/L Potassium 3.6 (3.5-5.1) mmol/L Chloride 99 (98-107) mmol/L Carbon Dioxide 24.5 (21.0-32.0) mmol/L BUN 24 H (7.0-18.0) mg/dL Creatinine 1.2 (0.8-1.3) mg/dL Est Cr Clr Drug Dosing TNP Estimated GFR (MDRD) 59.0 ml/min Glucose 172 H (74-106) mg/dL Calcium 8.3 L (8.5-10.1) mg/dL Magnesium 2.2 (1.8-2.4) mg/dL Total Bilirubin 0.6 (0.2-1.0) mg/dL AST 57 H (15-37) IU/L ALT 54 (14-63) IU/L Alkaline Phosphatase 75 (46-116) U/L Troponin I < 0.050 (0.000-0.056) ng/mL Total Protein 7.8 (6.4-8.2) g/dL Albumin 3.0 L (3.4-5.0) g/dL Globulin 4.8 H (2.6-4.0) g/dL Albumin/Globulin Ratio 0.6 L (0.9-1.6) Urine Color YELLOW Urine Appearance CLEAR Urine pH 6.0 (5.0-8.0) Ur Specific [place] <= 1.005 (1.001-1.035) Urine Protein TRACE H (NEGATIVE) mg/dL Urine Glucose (UA) NEGATIVE (NEGATIVE) mg/dL Urine Ketones NEGATIVE (NEGATIVE) mg/dL Urine Occult Blood SMALL H (NEGATIVE) Urine Nitrite NEGATIVE (NEGATIVE) Urine Bilirubin NEGATIVE (NEGATIVE) Urine Urobilinogen 0.2 (<2.0) EU/dL Ur Leukocyte Esterase NEGATIVE (NEGATIVE) Urine RBC 0-2 (0-2/HPF) Urine WBC 0-1 (0-5/HPF) Ur Epithelial Cells RARE (NONE-FEW) Urine Bacteria RARE (NEGATIVE) Result Diagrams: 04/17/21 20:15 04/17/21 20:15 Sepsis Event Note - Focused Exam Vital Signs: Vital Signs Temp Pulse Resp BP Pulse Ox 04/17/21 23:00 61 22 H 99/60 96 04/17/21 22:00 73 22 H 105/76 90 L 04/17/21 21:00 72 22 H 102/75 91 L 04/17/21 20:10 96.2 F L 77 22 H 128/81 91 L - Problem List (1) Acute respiratory failure due to COVID-19 SNOMED Code(s): 134927279 ICD Code: U07.1 - COVID-19; J96.00 - ACUTE RESPIRATORY FAILURE, UNSP W HYPOXIA OR HYPERCAPNIA Status: Acute Current Visit: Yes (2) Pneumonia due to COVID-19 virus SNOMED Code(s): 732465888666632406 ICD Code: U07.1 - COVID-19; J12.82 - PNEUMONIA DUE TO CORONAVIRUS DISEASE 2019 Status: Acute Current Visit: Yes (3) BPH (benign prostatic hyperplasia) SNOMED Code(s): 169538430 ICD Code: N40.0 - BENIGN PROSTATIC HYPERPLASIA WITHOUT LOWER URINRY TRACT SYMP Status: Acute Current Visit: Yes (4) Asbestos-induced pleural plaque SNOMED Code(s): 229682105 ICD Code: J92.0 - PLEURAL PLAQUE WITH PRESENCE OF ASBESTOS Status: Acute Current Visit: Yes Problem Details: will need supportive measures Problem List Initiated/Reviewed/Updated: Yes Orders Last 24hrs: Acute hypoxemic respiratory failure due to covid 19 pneumonia Admit to medical floor for supplemental oxygen, decadron, inhalors, dexamethasone COVID 19 pneumonia Continue with steroid and lovenox. Incentive spirometry Q 1wk Generalized weakness Consult PT/OT to eval and treat. 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 Will refer pt to his PCP for his follow ups Full Code
[2021-04-18] MEDS: Enoxaparin 40 MG/0.4 ML Syringe SUBCUT SCH ×2 (02:10→08:37)
[2021-04-18] MEDS: Albuterol/Ipratropium 3.0-0.5 MG/3 ML Neb Soln NEB SCH ×5 (02:15→17:52)
[2021-04-18] MEDS: Dexamethasone 4 MG Tab PO SCH (08:37)
[2021-04-18] MEDS ORDERED: Carboxymethylcellulose Sodium 0.5% Ophth Soln 0.4 ML UD Box of 30 EYEBOTH PRN (14:28)
[2021-04-18] MEDS ORDERED: Terbinafine 250 MG Tab PO SCH (14:30)
--- NOTE | 2021-04-18 15:18 | PCM.PN ---
- General Info Date of Service: 04/18/21 Admission Dx/Problem (Free Text): Pt feels a little stronger this afternoon than he did last night. He is on 1 L oxygen by [place]. He is eating some. - Patient Data Vitals - Most Recent: Last Vital Signs Temp 97.3 F 04/18/21 11:34 Pulse 77 04/18/21 11:34 Resp 20 04/18/21 11:34 BP 140/78 04/18/21 11:34 Pulse Ox 93 L 04/18/21 11:34 Weight - Most Recent: 165 lb 1.6 oz I&O - Last 24 Hours: Intake & Output 04/18/21 04/18/21 04/18/21 06:59 14:59 22:59 Output Total 150 Balance -150 Lab Results Last 24 Hours: Laboratory Results - last 24 hr 04/17/21 04/17/21 04/17/21 Range/Units 20:15 20:15 23:00 WBC 4.09 (4.0-11.0) K/uL RBC 5.50 (4.50-5.90) M/uL Hgb 17.0 (13.0-17.0) g/dL Hct 47.8 (38.0-50.0) % MCV 86.9 (80.0-98.0) fL MCH 30.9 (27.0-32.0) pg MCHC 35.6 (31.0-37.0) g/dL RDW Std Deviation 44.0 (28.0-62.0) fl RDW Coeff of [place] 14 (11.0-15.0) % Plt Count 178 (150-400) K/uL MPV 10.90 (7.40-12.00) fL Neut % (Auto) 72.6 (48.0-80.0) % Lymph % (Auto) 15.2 L (16.0-40.0) % [place] % (Auto) 12.0 (0.0-15.0) % Eos % (Auto) 0.0 (0.0-7.0) % Baso % (Auto) 0.2 (0.0-1.5) % Neut # (Auto) 3.0 (1.4-5.7) K/uL Lymph # (Auto) 0.6 (0.6-2.4) K/uL [place] # (Auto) 0.5 (0.0-0.8) K/uL Eos # (Auto) 0.0 (0.0-0.7) K/uL Baso # (Auto) 0.0 (0.0-0.1) K/uL Nucleated RBC % 0.0 /100WBC Nucleated RBCs # 0 K/uL Sodium 136 (136-148) mmol/L Potassium 3.6 (3.5-5.1) mmol/L Chloride 99 (98-107) mmol/L Carbon Dioxide 24.5 (21.0-32.0) mmol/L BUN 24 H (7.0-18.0) mg/dL Creatinine 1.2 (0.8-1.3) mg/dL Est Cr Clr Drug Dosing TNP Estimated GFR (MDRD) 59.0 ml/min Glucose 172 H (74-106) mg/dL Calcium 8.3 L (8.5-10.1) mg/dL Magnesium 2.2 (1.8-2.4) mg/dL Total Bilirubin 0.6 (0.2-1.0) mg/dL AST 57 H (15-37) IU/L ALT 54 (14-63) IU/L Alkaline Phosphatase 75 (46-116) U/L Troponin I < 0.050 (0.000-0.056) ng/mL Total Protein 7.8 (6.4-8.2) g/dL Albumin 3.0 L (3.4-5.0) g/dL Globulin 4.8 H (2.6-4.0) g/dL Albumin/Globulin Ratio 0.6 L (0.9-1.6) Urine Color YELLOW Urine Appearance CLEAR Urine pH 6.0 (5.0-8.0) Ur Specific [place] <= 1.005 (1.001-1.035) Urine Protein TRACE H (NEGATIVE) mg/dL Urine Glucose (UA) NEGATIVE (NEGATIVE) mg/dL Urine Ketones NEGATIVE (NEGATIVE) mg/dL Urine Occult Blood SMALL H (NEGATIVE) Urine Nitrite NEGATIVE (NEGATIVE) Urine Bilirubin NEGATIVE (NEGATIVE) Urine Urobilinogen 0.2 (<2.0) EU/dL Ur Leukocyte Esterase NEGATIVE (NEGATIVE) Urine RBC 0-2 (0-2/HPF) Urine WBC 0-1 (0-5/HPF) Ur Epithelial Cells RARE (NONE-FEW) Urine Bacteria RARE (NEGATIVE) Med Orders - Current: Current Medications Albuterol/Ipratropium (Albuterol/Ipratropium 3.0-0.5 Mg/3 Ml Neb Soln) 3 ml NEB Q6HRRT [facility] Last Admin: 04/18/21 12:48 Dose: 3 ml Documented by: Artificial Tears (Carboxymethylcellulose Sodium 0.5% Ophth Soln 0.4 Ml Ud Box Of 30) 1 each EYEBOTH QID PRN PRN Reason: Dry Eyes Benzonatate (Benzonatate 100 Mg Cap) 100 mg PO TID PRN PRN Reason: Cough Dexamethasone (Dexamethasone 4 Mg Tab) 6 mg PO DAILY [facility] Last Admin: 04/18/21 08:37 Dose: 6 mg Documented by: Enoxaparin Sodium (Enoxaparin 40 Mg/0.4 Ml Syringe) 40 mg SUBCUT DAILY [facility] Last Admin: 04/18/21 08:37 Dose: 40 mg Documented by: Famotidine (Famotidine 20 Mg Tab) 20 mg PO BEDTIME [facility] Finasteride (Finasteride 5 Mg Tab) 5 mg PO DAILY [facility] Pantoprazole Sodium (Pantoprazole 40 Mg Tab.Cr) 40 mg PO DAILY [facility] Mineral Oil/Petrolatum,White [ Refresh P.M.] 3.5 Gm Ointment 1 each EYEBOTH BEDTIME PRN PRN Reason: Dry Eyes Zinc 50 Mg Tablet 1 each PO DAILY [facility] Tamsulosin HCl (Tamsulosin 0.4 Mg Cap.Er) 0.4 mg PO WITHDINNER [facility] Terbinafine HCl (Terbinafine 250 Mg Tab) 250 mg PO Q24H [facility] Discontinued Medications Albuterol/Ipratropium (Albuterol/Ipratropium 3.0-0.5 Mg/3 Ml Neb Soln) 3 ml NEB ONETIME ONE Stop: 04/17/21 20:25 Last Admin: 04/17/21 20:35 Dose: 3 ml Documented by: Albuterol/Ipratropium (Albuterol/Ipratropium 3.0-0.5 Mg/3 Ml Neb Soln) 3 ml NEB Q4HRRT [facility] Last Admin: 04/18/21 10:47 Dose: Not Given Documented by: Dexamethasone (Dexamethasone 10 Mg/Ml Sdv) 10 mg IVPUSH ONETIME ONE Stop: 04/17/21 20:36 Last Admin: 04/17/21 20:42 Dose: 10 mg Documented by: Sodium Chloride (Normal Saline) 1,000 mls @ 999 mls/hr IV .Bolus ONE Stop: 04/17/21 21:24 Last Admin: 04/17/21 20:35 Dose: 999 mls/hr Documented by: Remdesivir 200 mg/ Sodium (Chloride) 250 mls @ 250 mls/hr IV ONETIME ONE Stop: 04/17/21 23:30 Last Admin: 04/18/21 00:32 Dose: 250 mls/hr Documented by: Iopamidol (Iopamidol 755 Mg/Ml 500 Ml Multipack Bottle) 100 ml IVPUSH ONETIME STA Stop: 04/17/21 21:29 Last Admin: 04/17/21 21:28 Dose: 100 ml Documented by: Sodium Chloride (Sodium Chloride 0.9% 10 Ml Syringe) 10 ml FLUSH ASDIRECTED PRN PRN Reason: Keep Vein Open Last Admin: 04/17/21 20:35 Dose: 10 ml Documented by: Sodium Chloride (Sodium Chloride 0.9% 2.5 Ml Syringe) 2.5 ml FLUSH ASDIRECTED P RN PRN Reason: Keep Vein Open Last Admin: 04/17/21 20:35 Dose: 2.5 ml Documented by: - Exam Physical Findings Comments:: General: Elderly male. In no distress. On 1 L oxygen by [place] CVS: S1S2 appreciated. RRR lungs: clear but diminished bilaterally. No rales or wheezes. pa: soft, non tender, bowel sounds present. ext: no clubbing, cyanosis or edema neuro: no focal deficits. - Patient Data Lab Results Last 24 hrs: Laboratory Results - last 24 hr 04/17/21 04/17/21 04/17/21 Range/Units 20:15 20:15 23:00 WBC 4.09 (4.0-11.0) K/uL RBC 5.50 (4.50-5.90) M/uL Hgb 17.0 (13.0-17.0) g/dL Hct 47.8 (38.0-50.0) % MCV 86.9 (80.0-98.0) fL MCH 30.9 (27.0-32.0) pg MCHC 35.6 (31.0-37.0) g/dL RDW Std Deviation 44.0 (28.0-62.0) fl RDW Coeff of [place] 14 (11.0-15.0) % Plt Count 178 (150-400) K/uL MPV 10.90 (7.40-12.00) fL Neut % (Auto) 72.6 (48.0-80.0) % Lymph % (Auto) 15.2 L (16.0-40.0) % [place] % (Auto) 12.0 (0.0-15.0) % Eos % (Auto) 0.0 (0.0-7.0) % Baso % (Auto) 0.2 (0.0-1.5) % Neut # (Auto) 3.0 (1.4-5.7) K/uL Lymph # (Auto) 0.6 (0.6-2.4) K/uL [place] # (Auto) 0.5 (0.0-0.8) K/uL Eos # (Auto) 0.0 (0.0-0.7) K/uL Baso # (Auto) 0.0 (0.0-0.1) K/uL Nucleated RBC % 0.0 /100WBC Nucleated RBCs # 0 K/uL Sodium 136 (136-148) mmol/L Potassium 3.6 (3.5-5.1) mmol/L Chloride 99 (98-107) mmol/L Carbon Dioxide 24.5 (21.0-32.0) mmol/L BUN 24 H (7.0-18.0) mg/dL Creatinine 1.2 (0.8-1.3) mg/dL Est Cr Clr Drug Dosing TNP Estimated GFR (MDRD) 59.0 ml/min Glucose 172 H (74-106) mg/dL Calcium 8.3 L (8.5-10.1) mg/dL Magnesium 2.2 (1.8-2.4) mg/dL Total Bilirubin 0.6 (0.2-1.0) mg/dL AST 57 H (15-37) IU/L ALT 54 (14-63) IU/L Alkaline Phosphatase 75 (46-116) U/L Troponin I < 0.050 (0.000-0.056) ng/mL Total Protein 7.8 (6.4-8.2) g/dL Albumin 3.0 L (3.4-5.0) g/dL Globulin 4.8 H (2.6-4.0) g/dL Albumin/Globulin Ratio 0.6 L (0.9-1.6) Urine Color YELLOW Urine Appearance CLEAR Urine pH 6.0 (5.0-8.0) Ur Specific [place] <= 1.005 (1.001-1.035) Urine Protein TRACE H (NEGATIVE) mg/dL Urine Glucose (UA) NEGATIVE (NEGATIVE) mg/dL Urine Ketones NEGATIVE (NEGATIVE) mg/dL Urine Occult Blood SMALL H (NEGATIVE) Urine Nitrite NEGATIVE (NEGATIVE) Urine Bilirubin NEGATIVE (NEGATIVE) Urine Urobilinogen 0.2 (<2.0) EU/dL Ur Leukocyte Esterase NEGATIVE (NEGATIVE) Urine RBC 0-2 (0-2/HPF) Urine WBC 0-1 (0-5/HPF) Ur Epithelial Cells RARE (NONE-FEW) Urine Bacteria RARE (NEGATIVE) Result Diagrams: 04/17/21 20:15 04/17/21 20:15 Sepsis Event Note - Evaluation Sepsis Screening Result: No Definite Risk - Focused Exam Vital Signs: Vital Signs Temp Pulse Resp BP Pulse Ox 04/18/21 11:34 97.3 F 77 20 140/78 93 L 04/18/21 08:51 97.3 F 74 22 H 131/66 97 04/18/21 08:46 20 94 L 04/18/21 04:00 97.2 F 88 20 133/61 95 - Problem List & Annotations (1) Acute respiratory failure due to COVID-19 SNOMED Code(s): 840589956 Code(s): U07.1 - COVID-19; J96.00 - ACUTE RESPIRATORY FAILURE, UNSP W HYPOXIA OR HYPERCAPNIA Status: Acute Current Visit: Yes (2) Pneumonia due to COVID-19 virus SNOMED Code(s): 265133628610329963 Code(s): U07.1 - COVID-19; J12.82 - PNEUMONIA DUE TO CORONAVIRUS DISEASE 2019 Status: Acute Current Visit: Yes (3) BPH (benign prostatic hyperplasia) SNOMED Code(s): 378756847 Code(s): N40.0 - BENIGN PROSTATIC HYPERPLASIA WITHOUT LOWER URINRY TRACT SYMP Status: Acute Current Visit: Yes (4) Asbestos-induced pleural plaque SNOMED Code(s): 811378036 Code(s): J92.0 - PLEURAL PLAQUE WITH PRESENCE OF ASBESTOS Status: Acute Current Visit: Yes Annotation/Comment:: will need supportive measures - Problem List Review Problem List Initiated/Reviewed/Updated: Yes - My Orders Last 24 Hours: My Active Orders 04/17/21 23:30 Resuscitation Status Routine 04/17/21 23:49 Telemetry Monitoring [Cardiac Monitoring] [RC] Q8H 04/18/21 01:26 Patient Status [ADT] Routine Communication Order [RC] ROUTINE Oxygen Therapy [RC] PRN RT Aerosol Therapy [RC] ASDIRECTED RT Incentive Spirometry [RC] Q1HWA Up ad Mihaela [RC] ASDIRECTED VTE/DVT Education [RC] DAILY Vital Signs [RC] Q4H 04/18/21 02:00 Enoxaparin [Lovenox] 40 mg SUBCUT DAILY 04/18/21 Breakfast Regular Diet [DIET] 04/18/21 09:00 dexAMETHasone 6 mg PO DAILY 04/18/21 12:00 Albuterol/Ipratropium [DuoNeb 3.0-0.5 MG/3 ML] 3 ml NEB Q6HRRT 04/18/21 14:28 Carboxymethylcellulose Sodium [Refresh Plus 0.5%] 1 each EYEBOTH QID PRN 04/18/21 14:30 Finasteride [Proscar] 5 mg PO DAILY Terbinafine [LamISIL] 250 mg PO Q24H 04/18/21 14:48 Benzonatate [Tessalon Perles] 100 mg PO TID PRN 04/18/21 14:49 Consult to Physical Therapy [PT Evaluation and Treatment] [CONS] Routine 04/18/21 14:50 CRP [C-REACTIVE PROTEIN] [CHEM] Routine D Dimer [D-DIMER QUANTITATIVE] [COAG] Stat 04/18/21 17:30 Tamsulosin [Flomax] 0.4 mg PO WITHDINNER 04/18/21 21:00 Famotidine [Pepcid] 20 mg PO BEDTIME Patient's Own Medication [Ptom] 1 each EYEBOTH BEDTIME PRN 04/19/21 09:00 Pantoprazole [ProTONIX] 40 mg PO DAILY Patient's Own Medication [Ptom] 1 each PO DAILY - Assessment Assessment:: Acute hypoxemic respiratory failure due to COVID 19 pneumonia Continue with Decadron, lovenox, incentive spirometry. Encourage daily proning. Check CRP and Dimer. Inhalors prn. Asbestosis Supportive measures. Outpt pulmonology referral. [facility] home meds Full code status.
[2021-04-18] MEDS: Finasteride 5 MG Tab PO SCH (15:33)
[2021-04-18] MEDS: Tamsulosin 0.4 MG Cap.ER PO SCH (16:43)
[2021-04-18] MEDS: Terbinafine 250 MG Tab PO SCH (16:43)
[2021-04-18] MEDS: Benzonatate 100 MG Cap PO PRN (19:56)
[2021-04-18] MEDS: Famotidine 20 MG Tab PO SCH (20:00)
[2021-04-18] MEDS ORDERED: MINERAL OIL EYEBOTH PRN (21:00)
[2021-04-18] MEDS ORDERED: PETROLATUM WHITE EYEBOTH PRN (21:00)
[2021-04-19] MEDS: Albuterol/Ipratropium 3.0-0.5 MG/3 ML Neb Soln NEB SCH ×4 (01:54→17:33)
[2021-04-19] MEDS: Dexamethasone 4 MG Tab PO SCH (08:20)
[2021-04-19] MEDS: Pantoprazole 40 MG Tab.CR PO SCH (08:20)
[2021-04-19] MEDS: Finasteride 5 MG Tab PO SCH (08:21)
[2021-04-19] MEDS: Enoxaparin 40 MG/0.4 ML Syringe SUBCUT SCH (08:23)
--- NOTE | 2021-04-19 12:46 | PCM.PN ---
- General Info Date of Service: 04/19/21 Admission Dx/Problem (Free Text): Pt is doing relatively well. He is on a a few litres of oxygen by [place] today. Speaking in full sentences. Subjective Update: Doing better today. Maintaining sats above 90% on 3 L NC He is working with the incentive spirometer He looks a little more energetic today. - Patient Data Vitals - Most Recent: Last Vital Signs Temp 98.1 F 04/19/21 08:00 Pulse 74 04/19/21 08:00 Resp 18 04/19/21 08:00 BP 106/63 04/19/21 08:00 Pulse Ox 93 L 04/19/21 08:00 Weight - Most Recent: 165 lb 1.6 oz I&O - Last 24 Hours: Intake & Output 04/18/21 04/19/21 04/19/21 22:59 06:59 14:59 Intake Total 500 600 Output Total 350 150 Balance 150 450 Lab Results Last 24 Hours: Laboratory Results - last 24 hr 04/18/21 04/18/21 Range/Units 14:50 14:50 D-Dimer, Quantitative 0.59 H (0.0-0.50) mg/L FEU C-Reactive Protein 4.80 H (0.00-0.90) mg/dL Med Orders - Current: Current Medications Albuterol/Ipratropium (Albuterol/Ipratropium 3.0-0.5 Mg/3 Ml Neb Soln) 3 ml NEB Q6HRRT [facility] Last Admin: 04/19/21 07:52 Dose: 3 ml Documented by: Artificial Tears (Carboxymethylcellulose Sodium 0.5% Ophth Soln 0.4 Ml Ud Box Of 30) 1 each EYEBOTH QID PRN PRN Reason: Dry Eyes Benzonatate (Benzonatate 100 Mg Cap) 100 mg PO TID PRN PRN Reason: Cough Last Admin: 04/18/21 19:56 Dose: 100 mg Documented by: Dexamethasone (Dexamethasone 4 Mg Tab) 6 mg PO DAILY [facility] Last Admin: 04/19/21 08:20 Dose: 6 mg Documented by: Enoxaparin Sodium (Enoxaparin 40 Mg/0.4 Ml Syringe) 40 mg SUBCUT DAILY [facility] Last Admin: 04/19/21 08:23 Dose: 40 mg Documented by: Famotidine (Famotidine 20 Mg Tab) 20 mg PO BEDTIME [facility] Last Admin: 04/18/21 20:00 Dose: 20 mg Documented by: Finasteride (Finasteride 5 Mg Tab) 5 mg PO DAILY [facility] Last Admin: 04/19/21 08:21 Dose: 5 mg Documented by: Pantoprazole Sodium (Pantoprazole 40 Mg Tab.Cr) 40 mg PO DAILY [facility] Last Admin: 04/19/21 08:20 Dose: 40 mg Documented by: Mineral Oil/Petrolatum,White [ Refresh P.M.] 3.5 Gm Ointment 1 each EYEBOTH BEDTIME PRN PRN Reason: Dry Eyes Zinc 50 Mg Tablet 1 each PO DAILY [facility] Last Admin: 04/19/21 08:25 Dose: Not Given Documented by: Terbinafine 250 Mg (Tab) 1 each PO Q24H [facility] Last Admin: 04/18/21 16:43 Dose: Not Given Documented by: Tamsulosin HCl (Tamsulosin 0.4 Mg Cap.Er) 0.4 mg PO WITHDINNER [facility] Last Admin: 04/18/21 16:43 Dose: 0.4 mg Documented by: Discontinued Medications Albuterol/Ipratropium (Albuterol/Ipratropium 3.0-0.5 Mg/3 Ml Neb Soln) 3 ml NEB ONETIME ONE Stop: 04/17/21 20:25 Last Admin: 04/17/21 20:35 Dose: 3 ml Documented by: Albuterol/Ipratropium (Albuterol/Ipratropium 3.0-0.5 Mg/3 Ml Neb Soln) 3 ml NEB Q4HRRT [facility] Last Admin: 04/18/21 10:47 Dose: Not Given Documented by: Dexamethasone (Dexamethasone 10 Mg/Ml Sdv) 10 mg IVPUSH ONETIME ONE Stop: 04/17/21 20:36 Last Admin: 04/17/21 20:42 Dose: 10 mg Documented by: Sodium Chloride (Normal Saline) 1,000 mls @ 999 mls/hr IV .Bolus ONE Stop: 04/17/21 21:24 Last Admin: 04/17/21 20:35 Dose: 999 mls/hr Documented by: Remdesivir 200 mg/ Sodium (Chloride) 250 mls @ 250 mls/hr IV ONETIME ONE Stop: 04/17/21 23:30 Last Admin: 04/18/21 00:32 Dose: 250 mls/hr Documented by: Iopamidol (Iopamidol 755 Mg/Ml 500 Ml Multipack Bottle) 100 ml IVPUSH ONETIME STA Stop: 04/17/21 21:29 Last Admin: 04/17/21 21:28 Dose: 100 ml Documented by: Sodium Chloride (Sodium Chloride 0.9% 10 Ml Syringe) 10 ml FLUSH ASDIRECTED PRN PRN Reason: Keep Vein Open Last Admin: 04/17/21 20:35 Dose: 10 ml Documented by: Sodium Chloride (Sodium Chloride 0.9% 2.5 Ml Syringe) 2.5 ml FLUSH ASDIRECTED PRN PRN Reason: Keep Vein Open Last Admin: 04/17/21 20:35 Dose: 2.5 ml Documented by: Terbinafine HCl (Terbinafine 250 Mg Tab) 250 mg PO Q24H [facility] Last Admin: 04/18/21 15:35 Dose: Not Given Documented by: - Exam Physical Findings Comments:: General: Elderly male. In no distress. On 1 L oxygen by [place] CVS: S1S2 appreciated. RRR, no murmurs, rubs or gallops. lungs: clear but diminished bilaterally. No rales or wheezes. pa: soft, non tender, bowel sounds present. ext: no clubbing, cyanosis or edema neuro: no focal deficits. - Patient Data Lab Results Last 24 hrs: Laboratory Results - last 24 hr 04/18/21 04/18/21 Range/Units 14:50 14:50 D-Dimer, Quantitative 0.59 H (0.0-0.50) mg/L FEU C-Reactive Protein 4.80 H (0.00-0.90) mg/dL Result Diagrams: 04/17/21 20:15 04/17/21 20:15 Sepsis Event Note - Evaluation Sepsis Screening Result: No Definite Risk - Focused Exam Vital Signs: Vital Signs Temp Pulse Resp BP Pulse Ox 04/19/21 08:00 98.1 F 74 18 106/63 93 L 04/19/21 04:33 96.5 F L 69 19 102/62 93 L 04/19/21 03:05 91 L - Problem List & Annotations (1) Acute respiratory failure due to COVID-19 SNOMED Code(s): 547856640 Code(s): U07.1 - COVID-19; J96.00 - ACUTE RESPIRATORY FAILURE, UNSP W HYPOXIA OR HYPERCAPNIA Status: Acute Current Visit: Yes (2) Pneumonia due to COVID-19 virus SNOMED Code(s): 810019071360074223 Code(s): U07.1 - COVID-19; J12.82 - PNEUMONIA DUE TO CORONAVIRUS DISEASE 2019 Status: Acute Current Visit: Yes (3) BPH (benign prostatic hyperplasia) SNOMED Code(s): 755346775 Code(s): N40.0 - BENIGN PROSTATIC HYPERPLASIA WITHOUT LOWER URINRY TRACT SYMP Status: Acute Current Visit: Yes (4) Asbestos-induced pleural plaque SNOMED Code(s): 861388395 Code(s): J92.0 - PLEURAL PLAQUE WITH PRESENCE OF ASBESTOS Status: Acute Current Visit: Yes Annotation/Comment:: will need supportive measures - Problem List Review Problem List Initiated/Reviewed/Updated: Yes - My Orders Last 24 Hours: My Active Orders 04/18/21 12:00 Albuterol/Ipratropium [DuoNeb 3.0-0.5 MG/3 ML] 3 ml NEB Q6HRRT 04/18/21 14:28 Carboxymethylcellulose Sodium [Refresh Plus 0.5%] 1 each EYEBOTH QID PRN 04/18/21 14:30 Finasteride [Proscar] 5 mg PO DAILY 04/18/21 14:48 Benzonatate [Tessalon Perles] 100 mg PO TID PRN 04/18/21 14:49 Consult to Physical Therapy [PT Evaluation and Treatment] [CONS] Routine 04/18/21 17:00 Patient's Own Medication [Ptom] 1 each PO Q24H 04/18/21 17:30 Tamsulosin [Flomax] 0.4 mg PO WITHDINNER 04/18/21 21:00 Famotidine [Pepcid] 20 mg PO BEDTIME Patient's Own Medication [Ptom] 1 each EYEBOTH BEDTIME PRN 04/19/21 09:00 Pantoprazole [ProTONIX] 40 mg PO DAILY Patient's Own Medication [Ptom] 1 each PO DAILY - Assessment Assessment:: Acute hypoxemic respiratory failure due to COVID 19 pneumonia Much improved. Pt is on a 3 L litres oxygen by nasal cannula. Continue with Decadron and lovenox. Continue with incentive spirometry. Inhalors prn. Asbestosis Supportive measures. Outpt follow up with PCP/ Pulmonology. BPH home meds Full code status.
[2021-04-19] MEDS: Tamsulosin 0.4 MG Cap.ER PO SCH (18:17)
[2021-04-19] MEDS: Terbinafine 250 MG Tab PO SCH (18:17)
[2021-04-19] MEDS: Famotidine 20 MG Tab PO SCH (20:26)
[2021-04-19] MEDS: Benzonatate 100 MG Cap PO PRN (20:26)
[2021-04-20] MEDS: Albuterol/Ipratropium 3.0-0.5 MG/3 ML Neb Soln NEB SCH ×4 (00:12→18:46)
[2021-04-20] MEDS: Dexamethasone 4 MG Tab PO SCH (08:47)
[2021-04-20] MEDS: Pantoprazole 40 MG Tab.CR PO SCH (08:47)
[2021-04-20] MEDS: Finasteride 5 MG Tab PO SCH (08:47)
[2021-04-20] MEDS: Enoxaparin 40 MG/0.4 ML Syringe SUBCUT SCH (08:47)
--- NOTE | 2021-04-20 10:37 | PCM.HP.2 ---
H&P History of Present Illness - General Admit Problem/Dx: Pt is doing relatively well. He is on a a few litres of oxygen by [place] today. Speaking in full sentences. - Related Data Allergies/Adverse Reactions: Allergies Allergy/AdvReac Type Severity Reaction Status Date / Time No Known Allergies Allergy Verified 04/18/21 05:19 Home Medications: Home Meds Cyanocobalamin (Vitamin B-12) [Cyanocobalamin Injection] 1,000 mcg IM Q90D 05/12/18 [History] Finasteride [Proscar] 5 mg PO DAILY 05/12/18 [History] Pantoprazole Sodium 40 mg PO DAILY 05/12/18 [History] Tamsulosin HCl 0.4 mg PO WITHDINNER 05/12/18 [History] Ascorbic Acid 500 mg PO DAILY 04/18/21 [History] Azithromycin [Zithromax] 250 mg PO DAILY 04/18/21 [History] Calcium Carbonate [Calcium] 500 mg PO DAILY 04/18/21 [History] Carboxymethylcellulose Sodium [Refresh Liquigel 1%] 1 drop EYEBOTH QID PRN 04/18/21 [History] Cholecalciferol (Vitamin D3) [Vitamin D3] 25 mcg PO DAILY 04/18/21 [History] Cyanocobalamin (Vitamin B-12) [B-12] 1,000 mcg PO DAILY 04/18/21 [History] Famotidine 20 mg PO BEDTIME 04/18/21 [History] Mineral Oil/Petrolatum,White [Refresh P.M.] 1 applic EYEBOTH BEDTIME PRN 04/18/21 [History] Terbinafine [LamISIL] 250 mg PO Q24H 04/18/21 [History] Zinc 50 mg PO DAILY 04/18/21 [History] Past Medical History HEENT History: Reports: Hard of Hearing, Other (See Below) Other HEENT History: wears glasses, has upper and lower permanent dental bridge, has hearing aides Respiratory History: Reports: Sleep Apnea Other Respiratory History: recently tested for sleep apnea- just getting set up with CPAP Genitourinary History: Reports: BPH Neurological History: Reports: Concussion - Infectious Disease History Infectious Disease History: Reports: None - Past Surgical History GI Surgical History: Reports: EGD Other GI Surgeries/Procedures: was told he has "excess stomach acid" Other Male Surgeries/Procedures: hx of excision of undecended testicle, excision of Gynecomastia Social & Family History - Family History Family Medical History: No Pertinent Family History - Tobacco Use Tobacco Use Status *Q: Never Tobacco User - Caffeine Use Caffeine Use: Reports: None - Recreational Drug Use Recreational Drug Use: No Exam - Vital Signs Vital Signs: Last Vital Signs Temp 97.1 F 04/20/21 07:40 Pulse 70 04/20/21 07:40 Resp 18 04/20/21 07:40 BP 134/73 04/20/21 07:40 Pulse Ox 93 L 04/20/21 07:40 Weight: 165 lb 1.6 oz - Patient Data Result Diagrams: 04/17/21 20:15 04/17/21 20:15 Sepsis Event Note - Evaluation Sepsis Screening Result: No Definite Risk - Focused Exam Vital Signs: Vital Signs Temp Pulse Resp BP Pulse Ox 04/20/21 07:40 97.1 F 70 18 134/73 93 L 04/20/21 03:30 96.5 F L 81 20 101/68 93 L 04/20/21 00:00 98.1 F 74 18 118/64 93 L - Problem List (1) Acute respiratory failure due to COVID-19 SNOMED Code(s): 269505996 ICD Code: U07.1 - COVID-19; J96.00 - ACUTE RESPIRATORY FAILURE, UNSP W HYPOXIA OR HYPERCAPNIA Status: Acute Current Visit: Yes (2) Pneumonia due to COVID-19 virus SNOMED Code(s): 360611985237971558 ICD Code: U07.1 - COVID-19; J12.82 - PNEUMONIA DUE TO CORONAVIRUS DISEASE 2019 Status: Acute Current Visit: Yes (3) BPH (benign prostatic hyperplasia) SNOMED Code(s): 283323814 ICD Code: N40.0 - BENIGN PROSTATIC HYPERPLASIA WITHOUT LOWER URINRY TRACT SYMP Status: Acute Current Visit: Yes (4) Asbestos-induced pleural plaque SNOMED Code(s): 320194954 ICD Code: J92.0 - PLEURAL PLAQUE WITH PRESENCE OF ASBESTOS Status: Acute Current Visit: Yes Problem Details: will need supportive measures Problem List Initiated/Reviewed/Updated: Yes Orders Last 24hrs: Medication Orders Albuterol/Ipratropium (Albuterol/Ipratropium 3.0-0.5 Mg/3 Ml Neb Soln) 3 ml NEB Q6HRRT [facility] Last Admin: 04/20/21 05:41 Dose: 3 ml Documented by: Admin: 04/20/21 00:12 Dose: Not Given Documented by: Admin: 04/19/21 17:33 Dose: 3 ml Documented by: Admin: 04/19/21 13:34 Dose: 3 ml Documented by: Admin: 04/19/21 07:52 Dose: 3 ml Documented by: Admin: 04/19/21 01:54 Dose: 3 ml Documented by: Admin: 04/18/21 17:52 Dose: 3 ml Documented by: Admin: 04/18/21 12:48 Dose: 3 ml Documented by: MALGORZATA Artificial Tears (Carboxymethylcellulose Sodium 0.5% Ophth Soln 0.4 Ml Ud Box Of 30) 1 each EYEBOTH QID PRN PRN Reason: Dry Eyes Benzonatate (Benzonatate 100 Mg Cap) 100 mg PO TID PRN PRN Reason: Cough Last Admin: 04/19/21 20:26 Dose: 100 mg Documented by: Admin: 04/18/21 19:56 Dose: 100 mg Documented by: RODOLFO Dexamethasone (Dexamethasone 4 Mg Tab) 6 mg PO DAILY [facility] Last Admin: 04/20/21 08:47 Dose: 6 mg Documented by: Admin: 04/19/21 08:20 Dose: 6 mg Documented by: Admin: 04/18/21 08:37 Dose: 6 mg Documented by: REYES Enoxaparin Sodium (Enoxaparin 40 Mg/0.4 Ml Syringe) 40 mg SUBCUT DAILY [facility] Last Admin: 04/20/21 08:47 Dose: 40 mg Documented by: Admin: 04/19/21 08:23 Dose: 40 mg Documented by: Admin: 04/18/21 08:37 Dose: 40 mg Documented by: Admin: 04/18/21 02:10 Dose: Not Given Documented by: RODOLFO Famotidine (Famotidine 20 Mg Tab) 20 mg PO BEDTIME [facility] Last Admin: 04/19/21 20:26 Dose: 20 mg Documented by: Admin: 04/18/21 20:00 Dose: 20 mg Documented by: LETOSHA Finasteride (Finasteride 5 Mg Tab) 5 mg PO DAILY [facility] Last Admin: 04/20/21 08:47 Dose: 5 mg Documented by: Admin: 04/19/21 08:21 Dose: 5 mg Documented by: Admin: 04/18/21 15:33 Dose: 5 mg Documented by: REYES Pantoprazole Sodium (Pantoprazole 40 Mg Tab.Cr) 40 mg PO DAILY [facility] Last Admin: 04/20/21 08:47 Dose: 40 mg Documented by: Admin: 04/19/21 08:20 Dose: 40 mg Documented by: RAMU Mineral Oil/Petrolatum,White [ Refresh P.M.] 3.5 Gm Ointment 1 each EYEBOTH BEDTIME PRN PRN Reason: Dry Eyes Zinc 50 Mg Tablet 1 each PO DAILY [facility] Last Admin: 04/20/21 08:48 Dose: Not Given Documented by: Admin: 04/19/21 08:25 Dose: Not Given Documented by: RAMU Terbinafine 250 Mg (Tab) 1 each PO Q24H [facility] Last Admin: 04/19/21 18:17 Dose: Not Given Documented by: Admin: 04/18/21 16:43 Dose: Not Given Documented by: REYES Tamsulosin HCl (Tamsulosin 0.4 Mg Cap.Er) 0.4 mg PO WITHDINNER [facility] Last Admin: 04/19/21 18:17 Dose: 0.4 mg Documented by: Admin: 04/18/21 16:43 Dose: 0.4 mg Documented by: REYES - Mortality Measure Prognosis:: Good
--- NOTE | 2021-04-20 10:46 | PCM.PN ---
- General Info Date of Service: 04/20/21 Subjective Update: Pt is very weak. He is maintaining his oxygen sats above 90% on 2.5 L NC - Patient Data Vitals - Most Recent: Last Vital Signs Temp 97.1 F 04/20/21 07:40 Pulse 70 04/20/21 07:40 Resp 18 04/20/21 07:40 BP 134/73 04/20/21 07:40 Pulse Ox 93 L 04/20/21 07:40 Weight - Most Recent: 165 lb 1.6 oz I&O - Last 24 Hours: Intake & Output 04/19/21 04/20/21 04/20/21 22:59 06:59 14:59 Intake Total 780 200 Output Total 790 300 Balance -10 -100 Med Orders - Current: Current Medications Albuterol/Ipratropium (Albuterol/Ipratropium 3.0-0.5 Mg/3 Ml Neb Soln) 3 ml NEB Q6HRRT [facility] Last Admin: 04/20/21 05:41 Dose: 3 ml Documented by: Artificial Tears (Carboxymethylcellulose Sodium 0.5% Ophth Soln 0.4 Ml Ud Box Of 30) 1 each EYEBOTH QID PRN PRN Reason: Dry Eyes Benzonatate (Benzonatate 100 Mg Cap) 100 mg PO TID PRN PRN Reason: Cough Last Admin: 04/19/21 20:26 Dose: 100 mg Documented by: Dexamethasone (Dexamethasone 4 Mg Tab) 6 mg PO DAILY [facility] Last Admin: 04/20/21 08:47 Dose: 6 mg Documented by: Enoxaparin Sodium (Enoxaparin 40 Mg/0.4 Ml Syringe) 40 mg SUBCUT DAILY [facility] Last Admin: 04/20/21 08:47 Dose: 40 mg Documented by: Famotidine (Famotidine 20 Mg Tab) 20 mg PO BEDTIME [facility] Last Admin: 04/19/21 20:26 Dose: 20 mg Documented by: Finasteride (Finasteride 5 Mg Tab) 5 mg PO DAILY [facility] Last Admin: 04/20/21 08:47 Dose: 5 mg Documented by: Pantoprazole Sodium (Pantoprazole 40 Mg Tab.Cr) 40 mg PO DAILY [facility] Last Admin: 04/20/21 08:47 Dose: 40 mg Documented by: Mineral Oil/Petrolatum,White [ Refresh P.M.] 3.5 Gm Ointment 1 each EYEBOTH BEDTIME PRN PRN Reason: Dry Eyes Zinc 50 Mg Tablet 1 each PO DAILY [facility] Last Admin: 04/20/21 08:48 Dose: Not Given Documented by: Terbinafine 250 Mg (Tab) 1 each PO Q24H [facility] Last Admin: 04/19/21 18:17 Dose: Not Given Documented by: Tamsulosin HCl (Tamsulosin 0.4 Mg Cap.Er) 0.4 mg PO WITHDINNER [facility] Last Admin: 04/19/21 18:17 Dose: 0.4 mg Documented by: Discontinued Medications Albuterol/Ipratropium (Albuterol/Ipratropium 3.0-0.5 Mg/3 Ml Neb Soln) 3 ml NEB ONETIME ONE Stop: 04/17/21 20:25 Last Admin: 04/17/21 20:35 Dose: 3 ml Documented by: Albuterol/Ipratropium (Albuterol/Ipratropium 3.0-0.5 Mg/3 Ml Neb Soln) 3 ml NEB Q4HRRT [facility] Last Admin: 04/18/21 10:47 Dose: Not Given Documented by: Dexamethasone (Dexamethasone 10 Mg/Ml Sdv) 10 mg IVPUSH ONETIME ONE Stop: 04/17/21 20:36 Last Admin: 04/17/21 20:42 Dose: 10 mg Documented by: Sodium Chloride (Normal Saline) 1,000 mls @ 999 mls/hr IV .Bolus ONE Stop: 04/17/21 21:24 Last Admin: 04/17/21 20:35 Dose: 999 mls/hr Documented by: Remdesivir 200 mg/ Sodium (Chloride) 250 mls @ 250 mls/hr IV ONETIME ONE Stop: 04/17/21 23:30 Last Admin: 04/18/21 00:32 Dose: 250 mls/hr Documented by: Iopamidol (Iopamidol 755 Mg/Ml 500 Ml Multipack Bottle) 100 ml IVPUSH ONETIME STA Stop: 04/17/21 21:29 Last Admin: 04/17/21 21:28 Dose: 100 ml Documented by: Sodium Chloride (Sodium Chloride 0.9% 10 Ml Syringe) 10 ml FLUSH ASDIRECTED PRN PRN Reason: Keep Vein Open Last Admin: 04/17/21 20:35 Dose: 10 ml Documented by: Sodium Chloride (Sodium Chloride 0.9% 2.5 Ml Syringe) 2.5 ml FLUSH ASDIRECTED PRN PRN Reason: Keep Vein Open Last Admin: 04/17/21 20:35 Dose: 2.5 ml Documented by: Terbinafine HCl (Terbinafine 250 Mg Tab) 250 mg PO Q24H [facility] Last Admin: 04/18/21 15:35 Dose: Not Given Documented by: - Exam Physical Findings Comments:: General: Elderly male. Lethargic CVS: S1S2 appreciated. RRR lungs: Diminished but clear with a no rales or wheezes. PA: soft, non tender. bowel sounds present Ext: no clubbing, cyanosis or edema Neuro: moves all extremities. sensation is intact. - Patient Data Result Diagrams: 04/17/21 20:15 04/17/21 20:15 Sepsis Event Note - Evaluation Sepsis Screening Result: No Definite Risk - Focused Exam Vital Signs: Vital Signs Temp Pulse Resp BP Pulse Ox 04/20/21 07:40 97.1 F 70 18 134/73 93 L 04/20/21 03:30 96.5 F L 81 20 101/68 93 L 04/20/21 00:00 98.1 F 74 18 118/64 93 L - Problem List & Annotations (1) Acute respiratory failure due to COVID-19 SNOMED Code(s): 034396769 Code(s): U07.1 - COVID-19; J96.00 - ACUTE RESPIRATORY FAILURE, UNSP W HYPOXIA OR HYPERCAPNIA Status: Acute Current Visit: Yes (2) Pneumonia due to COVID-19 virus SNOMED Code(s): 789384766375099333 Code(s): U07.1 - COVID-19; J12.82 - PNEUMONIA DUE TO CORONAVIRUS DISEASE 2019 Status: Acute Current Visit: Yes (3) BPH (benign prostatic hyperplasia) SNOMED Code(s): 370126980 Code(s): N40.0 - BENIGN PROSTATIC HYPERPLASIA WITHOUT LOWER URINRY TRACT SYMP Status: Acute Current Visit: Yes (4) Asbestos-induced pleural plaque SNOMED Code(s): 697854783 Code(s): J92.0 - PLEURAL PLAQUE WITH PRESENCE OF ASBESTOS Status: Acute Current Visit: Yes Annotation/Comment:: will need supportive measures (5) Generalized muscle weakness SNOMED Code(s): 79621720, 44428395 Code(s): M62.81 - MUSCLE WEAKNESS (GENERALIZED) Status: Acute Current Visit: Yes - Problem List Review Problem List Initiated/Reviewed/Updated: Yes - Assessment Assessment:: Acute hypoxemic respiratory failure due to COVID 19 pneumonia- Pt's respiratory status is now stable. He is on minimal oxygen supplementation. Pt is on a 2.5 L litres oxygen by nasal cannula. Continue with Decadron and lovenox. Continue with incentive spirometry. Inhalors prn. Asbestosis Supportive measures. Outpatient follow up with PCP/ Pulmonology. Generalized weakness PT/OT eval and treat. Pt will be a challenge to place at a SNF due to his recent COVID infection. Hopefully he will get strong enough to go home with home PT/OT. BPH home meds Full code status.
[2021-04-20] MEDS: Tamsulosin 0.4 MG Cap.ER PO SCH (17:55)
[2021-04-20] MEDS: Terbinafine 250 MG Tab PO SCH (17:55)
[2021-04-20] MEDS: Famotidine 20 MG Tab PO SCH (20:08)
[2021-04-21] MEDS: Albuterol/Ipratropium 3.0-0.5 MG/3 ML Neb Soln NEB SCH ×4 (00:52→17:26)
[2021-04-21] MEDS: Finasteride 5 MG Tab PO SCH (07:59)
[2021-04-21] MEDS: Dexamethasone 4 MG Tab PO SCH (07:59)
[2021-04-21] MEDS: Enoxaparin 40 MG/0.4 ML Syringe SUBCUT SCH (08:00)
[2021-04-21] MEDS: Pantoprazole 40 MG Tab.CR PO SCH (08:00)
[2021-04-21] MEDS: Benzonatate 100 MG Cap PO PRN (16:42)
[2021-04-21] MEDS: Tamsulosin 0.4 MG Cap.ER PO SCH (16:42)
--- NOTE | 2021-04-21 16:42 | PCM.PN ---
- General Info Date of Service: 04/21/21 Subjective Update: Pt feels stronger today and more motivated to get better. He wants to go to [place] and be with his 15 yr old son MICHAELA. He is working with PT/OT. He was able to do 600cc on the incentive spirometer. He was advised on how to properly use it and aim to get to at least 1500cc tomorrow. - Patient Data Vitals - Most Recent: Last Vital Signs Temp 97.3 F 04/21/21 13:00 Pulse 73 04/21/21 13:00 Resp 20 04/21/21 13:00 BP 133/77 04/21/21 13:00 Pulse Ox 92 L 04/21/21 13:00 Weight - Most Recent: 165 lb 1.6 oz I&O - Last 24 Hours: Intake & Output 04/21/21 04/21/21 04/21/21 06:59 14:59 22:59 Intake Total 700 Balance 700 Med Orders - Current: Current Medications Albuterol/Ipratropium (Albuterol/Ipratropium 3.0-0.5 Mg/3 Ml Neb Soln) 3 ml NEB Q6HRRT [facility] Last Admin: 04/21/21 12:06 Dose: 3 ml Documented by: Artificial Tears (Carboxymethylcellulose Sodium 0.5% Ophth Soln 0.4 Ml Ud Box Of 30) 1 each EYEBOTH QID PRN PRN Reason: Dry Eyes Benzonatate (Benzonatate 100 Mg Cap) 100 mg PO TID PRN PRN Reason: Cough Last Admin: 04/19/21 20:26 Dose: 100 mg Documented by: Dexamethasone (Dexamethasone 4 Mg Tab) 6 mg PO DAILY [facility] Last Admin: 04/21/21 07:59 Dose: 6 mg Documented by: Enoxaparin Sodium (Enoxaparin 40 Mg/0.4 Ml Syringe) 40 mg SUBCUT DAILY [facility] Last Admin: 04/21/21 08:00 Dose: 40 mg Documented by: Famotidine (Famotidine 20 Mg Tab) 20 mg PO BEDTIME [facility] Last Admin: 04/20/21 20:08 Dose: 20 mg Documented by: Finasteride (Finasteride 5 Mg Tab) 5 mg PO DAILY [facility] Last Admin: 04/21/21 07:59 Dose: 5 mg Documented by: Pantoprazole Sodium (Pantoprazole 40 Mg Tab.Cr) 40 mg PO DAILY [facility] Last Admin: 04/21/21 08:00 Dose: 40 mg Documented by: Mineral Oil/Petrolatum,White [ Refresh P.M.] 3.5 Gm Ointment 1 each EYEBOTH BEDTIME PRN PRN Reason: Dry Eyes Zinc 50 Mg Tablet 1 each PO DAILY [facility] Last Admin: 04/21/21 11:34 Dose: Not Given Documented by: Terbinafine 250 Mg (Tab) 1 each PO Q24H [facility] Last Admin: 04/20/21 17:55 Dose: Not Given Documented by: Tamsulosin HCl (Tamsulosin 0.4 Mg Cap.Er) 0.4 mg PO WITHDINNER [facility] Last Admin: 04/20/21 17:55 Dose: 0.4 mg Documented by: Discontinued Medications Albuterol/Ipratropium (Albuterol/Ipratropium 3.0-0.5 Mg/3 Ml Neb Soln) 3 ml NEB ONETIME ONE Stop: 04/17/21 20:25 Last Admin: 04/17/21 20:35 Dose: 3 ml Documented by: Albuterol/Ipratropium (Albuterol/Ipratropium 3.0-0.5 Mg/3 Ml Neb Soln) 3 ml NEB Q4HRRT [facility] Last Admin: 04/18/21 10:47 Dose: Not Given Documented by: Dexamethasone (Dexamethasone 10 Mg/Ml Sdv) 10 mg IVPUSH ONETIME ONE Stop: 04/17/21 20:36 Last Admin: 04/17/21 20:42 Dose: 10 mg Documented by: Sodium Chloride (Normal Saline) 1,000 mls @ 999 mls/hr IV .Bolus ONE Stop: 04/17/21 21:24 Last Admin: 04/17/21 20:35 Dose: 999 mls/hr Documented by: Remdesivir 200 mg/ Sodium (Chloride) 250 mls @ 250 mls/hr IV ONETIME ONE Stop: 04/17/21 23:30 Last Admin: 04/18/21 00:32 Dose: 250 mls/hr Documented by: Iopamidol (Iopamidol 755 Mg/Ml 500 Ml Multipack Bottle) 100 ml IVPUSH ONETIME STA Stop: 04/17/21 21:29 Last Admin: 04/17/21 21:28 Dose: 100 ml Documented by: Sodium Chloride (Sodium Chloride 0.9% 10 Ml Syringe) 10 ml FLUSH ASDIRECTED PRN PRN Reason: Keep Vein Open Last Admin: 04/17/21 20:35 Dose: 10 ml Documented by: Sodium Chloride (Sodium Chloride 0.9% 2.5 Ml Syringe) 2.5 ml FLUSH ASDIRECTED PRN PRN Reason: Keep Vein Open Last Admin: 04/17/21 20:35 Dose: 2.5 ml Documented by: Terbinafine HCl (Terbinafine 250 Mg Tab) 250 mg PO Q24H [facility] Last Admin: 04/18/21 15:35 Dose: Not Given Documented by: - Exam Physical Findings Comments:: General: Elderly male. In no acute distress. Awake and alert. In no distress. CVS: S1S2 appreciated. RRR lungs: Diminished but clear with a no rales or wheezes. PA: soft, non tender. bowel sounds present Ext: no clubbing, cyanosis or edema Neuro: moves all extremities. sensation is intact. psych: flat affect. - Patient Data Result Diagrams: 04/17/21 20:15 04/17/21 20:15 Sepsis Event Note - Evaluation Sepsis Screening Result: No Definite Risk - Focused Exam Vital Signs: Vital Signs Temp Pulse Resp BP Pulse Ox 04/21/21 13:00 97.3 F 73 20 133/77 92 L 04/21/21 09:00 97.1 F 79 24 H 141/81 H 90 L 04/21/21 04:54 97.2 F 62 20 136/60 89 L - Problem List & Annotations (1) Acute respiratory failure due to COVID-19 SNOMED Code(s): 488875168 Code(s): U07.1 - COVID-19; J96.00 - ACUTE RESPIRATORY FAILURE, UNSP W HYPOXIA OR HYPERCAPNIA Status: Acute Current Visit: Yes (2) Pneumonia due to COVID-19 virus SNOMED Code(s): 382669769882527687 Code(s): U07.1 - COVID-19; J12.82 - PNEUMONIA DUE TO CORONAVIRUS DISEASE 2019 Status: Acute Current Visit: Yes (3) BPH (benign prostatic hyperplasia) SNOMED Code(s): 567370872 Code(s): N40.0 - BENIGN PROSTATIC HYPERPLASIA WITHOUT LOWER URINRY TRACT SYMP Status: Acute Current Visit: Yes (4) Asbestos-induced pleural plaque SNOMED Code(s): 300541826 Code(s): J92.0 - PLEURAL PLAQUE WITH PRESENCE OF ASBESTOS Status: Acute Current Visit: Yes Annotation/Comment:: will need supportive measures (5) Generalized muscle weakness SNOMED Code(s): 62908889, 54130829 Code(s): M62.81 - MUSCLE WEAKNESS (GENERALIZED) Status: Acute Current Visit: Yes - Problem List Review Problem List Initiated/Reviewed/Updated: Yes - Assessment Assessment:: Acute hypoxemic respiratory failure due to COVID 19 pneumonia- Pt's respiratory status is now stable. He is on minimal oxygen supplementation. Pt is on a 2.5-3 L litres oxygen by nasal cannula. Continue with Decadron and lovenox. Continue with incentive spirometry. Inhalors prn. Asbestosis Supportive measures. Outpatient follow up with PCP/ Pulmonology. 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 Continue to work with PT/OT. Pt will be a challenge to place at a SNF due to his recent COVID infection. Hopefully he will get strong enough to go home with out patient PT/OT. BPH Continue with home meds Full code status.
[2021-04-21] MEDS: Terbinafine 250 MG Tab PO SCH (19:43)
[2021-04-21] MEDS: Famotidine 20 MG Tab PO SCH (22:28)
[2021-04-22] MEDS: Albuterol/Ipratropium 3.0-0.5 MG/3 ML Neb Soln NEB SCH ×4 (00:38→17:04)
[2021-04-22] MEDS: Dexamethasone 4 MG Tab PO SCH (08:47)
[2021-04-22] MEDS: Pantoprazole 40 MG Tab.CR PO SCH (08:48)
[2021-04-22] MEDS: Finasteride 5 MG Tab PO SCH (08:48)
[2021-04-22] MEDS: Enoxaparin 40 MG/0.4 ML Syringe SUBCUT SCH (08:48)
[2021-04-22 14:44] LABS: BLOOD UREA NITROGEN,BUN 22 mg/dL (7.0-18.0); CARBON DIOXIDE,CO2 26.7 mmol/L (21.0-32.0); CHLORIDE,CL 103 mmol/L (98-107); GLUCOSE RANDOM 165 mg/dL (74-106); POTASSIUM,K 4.1 mmol/L (3.5-5.1); SODIUM,NA 141 mmol/L (136-148)
[2021-04-22] MEDS ORDERED: REMDESIVIR 200 MG in Sodium Chloride 0.9% 250 ML IV ONE (15:04)
--- NOTE | 2021-04-22 15:07 | PCM.PN ---
- General Info Date of Service: 04/22/21 - Review of Systems Systems Review Comment:: reports fatigue - Patient Data Vitals - Most Recent: Last Vital Signs Temp 36.6 C 04/22/21 12:00 Pulse 80 04/22/21 12:00 Resp 18 04/22/21 12:00 BP 141/73 H 04/22/21 12:00 Pulse Ox 88 L 04/22/21 12:00 Weight - Most Recent: 74.888 kg I&O - Last 24 Hours: Intake & Output 04/22/21 04/22/21 04/22/21 06:59 14:59 22:59 Intake Total 400 Output Total 525 Balance -125 Lab Results Last 24 Hours: Laboratory Results - last 24 hr 04/22/21 04/22/21 Range/Units 14:14 14:14 WBC 11.83 H (4.0-11.0) K/uL RBC 5.16 (4.50-5.90) M/uL Hgb 15.9 (13.0-17.0) g/dL Hct 45.1 (38.0-50.0) % MCV 87.4 (80.0-98.0) fL MCH 30.8 (27.0-32.0) pg MCHC 35.3 (31.0-37.0) g/dL RDW Std Deviation 44.6 (28.0-62.0) fl RDW Coeff of [place] 14 (11.0-15.0) % Plt Count 286 (150-400) K/uL MPV 11.10 (7.40-12.00) fL Neut % (Auto) 92.5 H (48.0-80.0) % Lymph % (Auto) 3.2 L (16.0-40.0) % [place] % (Auto) 4.3 (0.0-15.0) % Eos % (Auto) 0.0 (0.0-7.0) % Baso % (Auto) 0.0 (0.0-1.5) % Neut # (Auto) 10.9 H (1.4-5.7) K/uL Lymph # (Auto) 0.4 L (0.6-2.4) K/uL [place] # (Auto) 0.5 (0.0-0.8) K/uL Eos # (Auto) 0.0 (0.0-0.7) K/uL Baso # (Auto) 0.0 (0.0-0.1) K/uL Nucleated RBC % 0.0 /100WBC Nucleated RBCs # 0 K/uL Sodium 141 (136-148) mmol/L Potassium 4.1 (3.5-5.1) mmol/L Chloride 103 (98-107) mmol/L Carbon Dioxide 26.7 (21.0-32.0) mmol/L BUN 22 H (7.0-18.0) mg/dL Creatinine 0.9 (0.8-1.3) mg/dL Est Cr Clr Drug Dosing 70.92 mL/min Estimated GFR (MDRD) > 60.0 ml/min Glucose 165 H (74-106) mg/dL Calcium 8.5 (8.5-10.1) mg/dL Total Bilirubin 0.8 (0.2-1.0) mg/dL AST 68 H (15-37) IU/L ALT 105 H (14-63) IU/L Alkaline Phosphatase 74 (46-116) U/L Total Protein 7.4 (6.4-8.2) g/dL Albumin 2.6 L (3.4-5.0) g/dL Globulin 4.8 H (2.6-4.0) g/dL Albumin/Globulin Ratio 0.5 L (0.9-1.6) Med Orders - Current: Current Medications Albuterol/Ipratropium (Albuterol/Ipratropium 3.0-0.5 Mg/3 Ml Neb Soln) 3 ml NEB Q6HRRT [facility] Last Admin: 04/22/21 11:33 Dose: 3 ml Documented by: Artificial Tears (Carboxymethylcellulose Sodium 0.5% Ophth Soln 0.4 Ml Ud Box Of 30) 1 each EYEBOTH QID PRN PRN Reason: Dry Eyes Benzonatate (Benzonatate 100 Mg Cap) 100 mg PO TID PRN PRN Reason: Cough Last Admin: 04/21/21 16:42 Dose: 100 mg Documented by: Dexamethasone (Dexamethasone 4 Mg Tab) 6 mg PO DAILY [facility] Last Admin: 04/22/21 08:47 Dose: 6 mg Documented by: Enoxaparin Sodium (Enoxaparin 40 Mg/0.4 Ml Syringe) 40 mg SUBCUT DAILY [facility] Last Admin: 04/22/21 08:48 Dose: 40 mg Documented by: Famotidine (Famotidine 20 Mg Tab) 20 mg PO BEDTIME [facility] Last Admin: 04/21/21 22:28 Dose: 20 mg Documented by: Finasteride (Finasteride 5 Mg Tab) 5 mg PO DAILY [facility] Last Admin: 04/22/21 08:48 Dose: 5 mg Documented by: Remdesivir 200 mg/ Sodium (Chloride) 250 mls @ 250 mls/hr IV ONETIME ONE Stop: 04/22/21 15:05 Remdesivir 100 mg/ Sodium (Chloride) 100 mls @ 100 mls/hr IV Q24H [facility] Stop: 04/26/21 16:14 Pantoprazole Sodium (Pantoprazole 40 Mg Tab.Cr) 40 mg PO DAILY [facility] Last Admin: 04/22/21 08:48 Dose: 40 mg Documented by: Mineral Oil/Petrolatum,White [ Refresh P.M.] 3.5 Gm Ointment 1 each EYEBOTH BEDTIME PRN PRN Reason: Dry Eyes Zinc 50 Mg Tablet 1 each PO DAILY [facility] Last Admin: 04/22/21 08:48 Dose: Not Given Documented by: Terbinafine 250 Mg (Tab) 1 each PO Q24H [facility] Last Admin: 04/21/21 19:43 Dose: Not Given Documented by: Tamsulosin HCl (Tamsulosin 0.4 Mg Cap.Er) 0.4 mg PO WITHDINNER [facility] Last Admin: 04/21/21 16:42 Dose: 0.4 mg Documented by: Discontinued Medications Albuterol/Ipratropium (Albuterol/Ipratropium 3.0-0.5 Mg/3 Ml Neb Soln) 3 ml NEB ONETIME ONE Stop: 04/17/21 20:25 Last Admin: 04/17/21 20:35 Dose: 3 ml Documented by: Albuterol/Ipratropium (Albuterol/Ipratropium 3.0-0.5 Mg/3 Ml Neb Soln) 3 ml NEB Q4HRRT [facility] Last Admin: 04/18/21 10:47 Dose: Not Given Documented by: Dexamethasone (Dexamethasone 10 Mg/Ml Sdv) 10 mg IVPUSH ONETIME ONE Stop: 04/17/21 20:36 Last Admin: 04/17/21 20:42 Dose: 10 mg Documented by: Sodium Chloride (Normal Saline) 1,000 mls @ 999 mls/hr IV .Bolus ONE Stop: 04/17/21 21:24 Last Admin: 04/17/21 20:35 Dose: 999 mls/hr Documented by: Remdesivir 200 mg/ Sodium (Chloride) 250 mls @ 250 mls/hr IV ONETIME ONE Stop: 04/17/21 23:30 Last Admin: 04/18/21 00:32 Dose: 250 mls/hr Documented by: Iopamidol (Iopamidol 755 Mg/Ml 500 Ml Multipack Bottle) 100 ml IVPUSH ONETIME [facility] Stop: 04/17/21 21:29 Last Admin: 04/17/21 21:28 Dose: 100 ml Documented by: Sodium Chloride (Sodium Chloride 0.9% 10 Ml Syringe) 10 ml FLUSH ASDIRECTED PRN PRN Reason: Keep Vein Open Last Admin: 04/17/21 20:35 Dose: 10 ml Documented by: Sodium Chloride (Sodium Chloride 0.9% 2.5 Ml Syringe) 2.5 ml FLUSH ASDIRECTED PRN PRN Reason: Keep Vein Open Last Admin: 04/17/21 20:35 Dose: 2.5 ml Documented by: Terbinafine HCl (Terbinafine 250 Mg Tab) 250 mg PO Q24H [facility] Last Admin: 04/18/21 15:35 Dose: Not Given Documented by: - Exam General: Alert, Oriented Neck: Supple Lungs: Clear to Auscultation, Normal Respiratory Effort Cardiovascular: Regular Rate, Regular Rhythm GI/Abdominal Exam: Soft, Non-Tender Extremities: Non-Tender, No Pedal Edema Skin: Warm, Dry, Intact Neurological: No New Focal Deficit - Patient Data Lab Results Last 24 hrs: Laboratory Results - last 24 hr 04/22/21 04/22/21 Range/Units 14:14 14:14 WBC 11.83 H (4.0-11.0) K/uL RBC 5.16 (4.50-5.90) M/uL Hgb 15.9 (13.0-17.0) g/dL Hct 45.1 (38.0-50.0) % MCV 87.4 (80.0-98.0) fL MCH 30.8 (27.0-32.0) pg MCHC 35.3 (31.0-37.0) g/dL RDW Std Deviation 44.6 (28.0-62.0) fl RDW Coeff of [place] 14 (11.0-15.0) % Plt Count 286 (150-400) K/uL MPV 11.10 (7.40-12.00) fL Neut % (Auto) 92.5 H (48.0-80.0) % Lymph % (Auto) 3.2 L (16.0-40.0) % [place] % (Auto) 4.3 (0.0-15.0) % Eos % (Auto) 0.0 (0.0-7.0) % Baso % (Auto) 0.0 (0.0-1.5) % Neut # (Auto) 10.9 H (1.4-5.7) K/uL Lymph # (Auto) 0.4 L (0.6-2.4) K/uL [place] # (Auto) 0.5 (0.0-0.8) K/uL Eos # (Auto) 0.0 (0.0-0.7) K/uL Baso # (Auto) 0.0 (0.0-0.1) K/uL Nucleated RBC % 0.0 /100WBC Nucleated RBCs # 0 K/uL Sodium 141 (136-148) mmol/L Potassium 4.1 (3.5-5.1) mmol/L Chloride 103 (98-107) mmol/L Carbon Dioxide 26.7 (21.0-32.0) mmol/L BUN 22 H (7.0-18.0) mg/dL Creatinine 0.9 (0.8-1.3) mg/dL Est Cr Clr Drug Dosing 70.92 mL/min Estimated GFR (MDRD) > 60.0 ml/min Glucose 165 H (74-106) mg/dL Calcium 8.5 (8.5-10.1) mg/dL Total Bilirubin 0.8 (0.2-1.0) mg/dL AST 68 H (15-37) IU/L ALT 105 H (14-63) IU/L Alkaline Phosphatase 74 (46-116) U/L Total Protein 7.4 (6.4-8.2) g/dL Albumin 2.6 L (3.4-5.0) g/dL Globulin 4.8 H (2.6-4.0) g/dL Albumin/Globulin Ratio 0.5 L (0.9-1.6) Result Diagrams: 04/22/21 14:14 04/22/21 14:14 Sepsis Event Note - Evaluation Sepsis Screening Result: No Definite Risk - Focused Exam Vital Signs: Vital Signs Temp Pulse Resp BP Pulse Ox 04/22/21 12:00 36.6 C 80 18 141/73 H 88 L 04/22/21 08:00 36.5 C 94 18 131/70 89 L 04/22/21 05:00 22 H 90 L 04/22/21 04:50 36.4 C 72 22 H 154/81 H 88 L - Problem List & Annotations (1) Respiratory failure with hypoxia SNOMED Code(s): 62949185774153815 Code(s): J96.91 - RESPIRATORY FAILURE, UNSPECIFIED WITH HYPOXIA Status: Acute Current Visit: Yes (2) COVID-19 SNOMED Code(s): 163541918 Code(s): U07.1 - COVID-19 Status: Acute Current Visit: Yes - Problem List Review Problem List Initiated/Reviewed/Updated: Yes - My Orders Last 24 Hours: My Active Orders 04/22/21 15:04 Remdesivir 200 mg Sodium Chloride 0.9% [Normal Saline] 250 ml IV ONETIME 04/23/21 05:11 CBC WITH AUTO DIFF [HEME] AM COMPREHENSIVE METABOLIC PN,CMP [CHEM] AM 04/23/21 15:15 Remdesivir 100 mg Sodium Chloride 0.9% [Normal Saline AdvBag] 100 ml IV Q24H 04/24/21 05:11 CBC WITH AUTO DIFF [HEME] AM COMPREHENSIVE METABOLIC PN,CMP [CHEM] AM 04/25/21 05:11 CBC WITH AUTO DIFF [HEME] AM COMPREHENSIVE METABOLIC PN,CMP [CHEM] AM 04/26/21 05:11 CBC WITH AUTO DIFF [HEME] AM COMPREHENSIVE METABOLIC PN,CMP [CHEM] AM - Assessment Assessment:: Acute hypoxemic respiratory failure due to COVID 19 pneumonia oxygen requirements is increasing, patietn consented to the use of remdesivir, will continue dexamethasone. 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 Continue to work with PT/OT. BPH Continue with home meds Full code status.
[2021-04-22] MEDS: Terbinafine 250 MG Tab PO SCH (17:10)
[2021-04-22] MEDS: Tamsulosin 0.4 MG Cap.ER PO SCH (17:10)
--- NOTE | 2021-04-22 17:17 | CR ---
Indication: Hypoxia Technique: Portable chest Comparison: Chest x-ray 04/13/2021 Findings: Enlarged cardiac silhouette. Calcified pleural plaques. Diffuse prominence in the interstitial markings which could reflect pulmonary edema or infectious inflammatory etiologies to include atypical infections. No airspace consolidation. No effusion. Dictated by Karla Workman MD @ 04/22/2021 5:16:11 PM (Electronically Signed)
[2021-04-22] MEDS: Famotidine 20 MG Tab PO SCH (21:19)
[2021-04-23] MEDS: Albuterol/Ipratropium 3.0-0.5 MG/3 ML Neb Soln NEB SCH ×5 (00:06→23:22)
[2021-04-23 07:09] LABS: BLOOD UREA NITROGEN,BUN 23 mg/dL (7.0-18.0); CARBON DIOXIDE,CO2 27.3 mmol/L (21.0-32.0); CHLORIDE,CL 106 mmol/L (98-107); GLUCOSE RANDOM 98 mg/dL (74-106); POTASSIUM,K 4.3 mmol/L (3.5-5.1); SODIUM,NA 143 mmol/L (136-148)
[2021-04-23] MEDS: Enoxaparin 40 MG/0.4 ML Syringe SUBCUT SCH ×2 (08:03→08:18)
[2021-04-23] MEDS: Finasteride 5 MG Tab PO SCH (08:03)
[2021-04-23] MEDS: Dexamethasone 4 MG Tab PO SCH (08:04)
[2021-04-23] MEDS: Pantoprazole 40 MG Tab.CR PO SCH (08:04)
--- NOTE | 2021-04-23 14:41 | PCM.PN ---
- General Info Date of Service: 04/23/21 - Review of Systems Systems Review Comment:: no new complaints, no dyspnea, no chest pain, no fevers - Patient Data Vitals - Most Recent: Last Vital Signs Temp 37.1 C 04/23/21 07:56 Pulse 77 04/23/21 07:56 Resp 18 04/23/21 07:56 BP 157/85 H 04/23/21 07:56 Pulse Ox 90 L 04/23/21 07:56 Weight - Most Recent: 74.888 kg I&O - Last 24 Hours: Intake & Output 04/22/21 04/23/21 04/23/21 22:59 06:59 14:59 Intake Total 450 600 Output Total 300 425 Balance 150 175 Lab Results Last 24 Hours: Laboratory Results - last 24 hr 04/22/21 04/23/21 04/23/21 Range/Units 14:14 05:31 05:31 WBC 10.76 (4.0-11.0) K/uL RBC 5.11 (4.50-5.90) M/uL Hgb 15.5 (13.0-17.0) g/dL Hct 44.8 (38.0-50.0) % MCV 87.7 (80.0-98.0) fL MCH 30.3 (27.0-32.0) pg MCHC 34.6 (31.0-37.0) g/dL RDW Std Deviation 44.4 (28.0-62.0) fl RDW Coeff of [place] 14 (11.0-15.0) % Plt Count 280 (150-400) K/uL MPV 11.20 (7.40-12.00) fL Neut % (Auto) 87.9 H (48.0-80.0) % Lymph % (Auto) 6.6 L (16.0-40.0) % [place] % (Auto) 5.4 (0.0-15.0) % Eos % (Auto) 0.0 (0.0-7.0) % Baso % (Auto) 0.1 (0.0-1.5) % Neut # (Auto) 9.5 H (1.4-5.7) K/uL Lymph # (Auto) 0.7 (0.6-2.4) K/uL [place] # (Auto) 0.6 (0.0-0.8) K/uL Eos # (Auto) 0.0 (0.0-0.7) K/uL Baso # (Auto) 0.0 (0.0-0.1) K/uL Nucleated RBC % 0.0 /100WBC Nucleated RBCs # 0 K/uL Sodium 141 143 (136-148) mmol/L Potassium 4.1 4.3 (3.5-5.1) mmol/L Chloride 103 106 (98-107) mmol/L Carbon Dioxide 26.7 27.3 (21.0-32.0) mmol/L BUN 22 H 23 H (7.0-18.0) mg/dL Creatinine 0.9 0.7 L (0.8-1.3) mg/dL Est Cr Clr Drug Dosing 70.92 91.18 mL/min Estimated GFR (MDRD) > 60.0 > 60.0 ml/min Glucose 165 H 98 (74-106) mg/dL Calcium 8.5 8.3 L (8.5-10.1) mg/dL Total Bilirubin 0.8 0.8 (0.2-1.0) mg/dL AST 68 H 51 H (15-37) IU/L ALT 105 H 99 H (14-63) IU/L Alkaline Phosphatase 74 73 (46-116) U/L Total Protein 7.4 6.5 (6.4-8.2) g/dL Albumin 2.6 L 2.5 L (3.4-5.0) g/dL Globulin 4.8 H 4.0 (2.6-4.0) g/dL Albumin/Globulin Ratio 0.5 L 0.6 L (0.9-1.6) Med Orders - Current: Current Medications Albuterol/Ipratropium (Albuterol/Ipratropium 3.0-0.5 Mg/3 Ml Neb Soln) 3 ml NEB Q6HRRT [facility] Last Admin: 04/23/21 11:10 Dose: 3 ml Documented by: Artificial Tears (Carboxymethylcellulose Sodium 0.5% Ophth Soln 0.4 Ml Ud Box Of 30) 1 each EYEBOTH QID PRN PRN Reason: Dry Eyes Benzonatate (Benzonatate 100 Mg Cap) 100 mg PO TID PRN PRN Reason: Cough Last Admin: 04/21/21 16:42 Dose: 100 mg Documented by: Dexamethasone (Dexamethasone 4 Mg Tab) 6 mg PO DAILY [facility] Last Admin: 04/23/21 08:04 Dose: 6 mg Documented by: Enoxaparin Sodium (Enoxaparin 40 Mg/0.4 Ml Syringe) 40 mg SUBCUT DAILY [facility] Last Admin: 04/23/21 08:18 Dose: Not Given Documented by: Famotidine (Famotidine 20 Mg Tab) 20 mg PO BEDTIME [facility] Last Admin: 04/22/21 21:19 Dose: 20 mg Documented by: Finasteride (Finasteride 5 Mg Tab) 5 mg PO DAILY [facility] Last Admin: 04/23/21 08:03 Dose: 5 mg Documented by: Remdesivir 100 mg/ Sodium (Chloride) 100 mls @ 100 mls/hr IV Q24H [facility] Stop: 04/26/21 15:59 Pantoprazole Sodium (Pantoprazole 40 Mg Tab.Cr) 40 mg PO DAILY [facility] Last Admin: 04/23/21 08:04 Dose: 40 mg Documented by: Mineral Oil/Petrolatum,White [ Refresh P.M.] 3.5 Gm Ointment 1 each EYEBOTH BEDTIME PRN PRN Reason: Dry Eyes Zinc 50 Mg Tablet 1 each PO DAILY [facility] Last Admin: 04/23/21 08:04 Dose: Not Given Documented by: Terbinafine 250 Mg (Tab) 1 each PO Q24H [facility] Last Admin: 04/22/21 17:10 Dose: Not Given Documented by: Tamsulosin HCl (Tamsulosin 0.4 Mg Cap.Er) 0.4 mg PO WITHDINNER [facility] Last Admin: 04/22/21 17:10 Dose: 0.4 mg Documented by: Discontinued Medications Albuterol/Ipratropium (Albuterol/Ipratropium 3.0-0.5 Mg/3 Ml Neb Soln) 3 ml NEB ONETIME ONE Stop: 04/17/21 20:25 Last Admin: 04/17/21 20:35 Dose: 3 ml Documented by: Albuterol/Ipratropium (Albuterol/Ipratropium 3.0-0.5 Mg/3 Ml Neb Soln) 3 ml NEB Q4HRRT [facility] Last Admin: 04/18/21 10:47 Dose: Not Given Documented by: Dexamethasone (Dexamethasone 10 Mg/Ml Sdv) 10 mg IVPUSH ONETIME ONE Stop: 04/17/21 20:36 Last Admin: 04/17/21 20:42 Dose: 10 mg Documented by: Sodium Chloride (Normal Saline) 1,000 mls @ 999 mls/hr IV .Bolus ONE Stop: 04/17/21 21:24 Last Admin: 04/17/21 20:35 Dose: 999 mls/hr Documented by: Remdesivir 200 mg/ Sodium (Chloride) 250 mls @ 250 mls/hr IV ONETIME ONE Stop: 04/17/21 23:30 Last Admin: 04/18/21 00:32 Dose: 250 mls/hr Documented by: Remdesivir 200 mg/ Sodium (Chloride) 250 mls @ 250 mls/hr IV ONETIME ONE Stop: 04/22/21 15:05 Last Admin: 04/22/21 17:05 Dose: 250 mls/hr Documented by: Iopamidol (Iopamidol 755 Mg/Ml 500 Ml Multipack Bottle) 100 ml IVPUSH ONETIME [facility] Stop: 04/17/21 21:29 Last Admin: 04/17/21 21:28 Dose: 100 ml Documented by: Sodium Chloride (Sodium Chloride 0.9% 10 Ml Syringe) 10 ml FLUSH ASDIRECTED PRN PRN Reason: Keep Vein Open Last Admin: 04/17/21 20:35 Dose: 10 ml Documented by: Sodium Chloride (Sodium Chloride 0.9% 2.5 Ml Syringe) 2.5 ml FLUSH ASDIRECTED PRN PRN Reason: Keep Vein Open Last Admin: 04/17/21 20:35 Dose: 2.5 ml Documented by: Terbinafine HCl (Terbinafine 250 Mg Tab) 250 mg PO Q24H [facility] Last Admin: 04/18/21 15:35 Dose: Not Given Documented by: - Exam General: Cooperative Neck: Supple Lungs: Clear to Auscultation, Normal Respiratory Effort Cardiovascular: Regular Rate, Regular Rhythm GI/Abdominal Exam: Soft, Non-Tender, No Distention Extremities: Non-Tender, No Pedal Edema Skin: Warm, Dry, Intact Neurological: No New Focal Deficit - Patient Data Lab Results Last 24 hrs: Laboratory Results - last 24 hr 04/22/21 04/23/21 04/23/21 Range/Units 14:14 05:31 05:31 WBC 10.76 (4.0-11.0) K/uL RBC 5.11 (4.50-5.90) M/uL Hgb 15.5 (13.0-17.0) g/dL Hct 44.8 (38.0-50.0) % MCV 87.7 (80.0-98.0) fL MCH 30.3 (27.0-32.0) pg MCHC 34.6 (31.0-37.0) g/dL RDW Std Deviation 44.4 (28.0-62.0) fl RDW Coeff of [place] 14 (11.0-15.0) % Plt Count 280 (150-400) K/uL MPV 11.20 (7.40-12.00) fL Neut % (Auto) 87.9 H (48.0-80.0) % Lymph % (Auto) 6.6 L (16.0-40.0) % [place] % (Auto) 5.4 (0.0-15.0) % Eos % (Auto) 0.0 (0.0-7.0) % Baso % (Auto) 0.1 (0.0-1.5) % Neut # (Auto) 9.5 H (1.4-5.7) K/uL Lymph # (Auto) 0.7 (0.6-2.4) K/uL [place] # (Auto) 0.6 (0.0-0.8) K/uL Eos # (Auto) 0.0 (0.0-0.7) K/uL Baso # (Auto) 0.0 (0.0-0.1) K/uL Nucleated RBC % 0.0 /100WBC Nucleated RBCs # 0 K/uL Sodium 141 143 (136-148) mmol/L Potassium 4.1 4.3 (3.5-5.1) mmol/L Chloride 103 106 (98-107) mmol/L Carbon Dioxide 26.7 27.3 (21.0-32.0) mmol/L BUN 22 H 23 H (7.0-18.0) mg/dL Creatinine 0.9 0.7 L (0.8-1.3) mg/dL Est Cr Clr Drug Dosing 70.92 91.18 mL/min Estimated GFR (MDRD) > 60.0 > 60.0 ml/min Glucose 165 H 98 (74-106) mg/dL Calcium 8.5 8.3 L (8.5-10.1) mg/dL Total Bilirubin 0.8 0.8 (0.2-1.0) mg/dL AST 68 H 51 H (15-37) IU/L ALT 105 H 99 H (14-63) IU/L Alkaline Phosphatase 74 73 (46-116) U/L Total Protein 7.4 6.5 (6.4-8.2) g/dL Albumin 2.6 L 2.5 L (3.4-5.0) g/dL Globulin 4.8 H 4.0 (2.6-4.0) g/dL Albumin/Globulin Ratio 0.5 L 0.6 L (0.9-1.6) Result Diagrams: 04/23/21 05:31 04/23/21 05:31 Sepsis Event Note - Evaluation Sepsis Screening Result: No Definite Risk - Focused Exam Vital Signs: Vital Signs Temp Pulse Resp BP Pulse Ox 04/23/21 07:56 37.1 C 77 18 157/85 H 90 L 04/23/21 03:29 36.0 C L 69 19 160/82 H 92 L - Problem List & Annotations (1) Respiratory failure with hypoxia SNOMED Code(s): 37706199226872146 Code(s): J96.91 - RESPIRATORY FAILURE, UNSPECIFIED WITH HYPOXIA Status: Acute Current Visit: Yes (2) COVID-19 SNOMED Code(s): 589153239 Code(s): U07.1 - COVID-19 Status: Acute Current Visit: Yes - Problem List Review Problem List Initiated/Reviewed/Updated: Yes - My Orders Last 24 Hours: My Active Orders 04/23/21 15:00 Remdesivir 100 mg Sodium Chloride 0.9% [Normal Saline AdvBag] 100 ml IV Q24H 04/24/21 05:11 CBC WITH AUTO DIFF [HEME] AM COMPREHENSIVE METABOLIC PN,CMP [CHEM] AM 04/25/21 05:11 CBC WITH AUTO DIFF [HEME] AM COMPREHENSIVE METABOLIC PN,CMP [CHEM] AM 04/26/21 05:11 CBC WITH AUTO DIFF [HEME] AM COMPREHENSIVE METABOLIC PN,CMP [CHEM] AM - Assessment Assessment:: Acute hypoxemic respiratory failure due to COVID 19 pneumonia Hypoxia: on 7 L NCN COVID: on dexamethason and remdesivir 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 Will Continue to work with PT/OT. BPH: Continue with home meds lovenox for DVT prophylaxis
[2021-04-23] MEDS: REMDESIVIR 100 MG in Sodium Chloride 0.9% 100 ML IV SCH (14:56)
[2021-04-23] MEDS: Terbinafine 250 MG Tab PO SCH (18:00)
[2021-04-23] MEDS: Tamsulosin 0.4 MG Cap.ER PO SCH (18:01)
[2021-04-23] MEDS: Famotidine 20 MG Tab PO SCH (20:03)
[2021-04-24] MEDS: Albuterol/Ipratropium 3.0-0.5 MG/3 ML Neb Soln NEB SCH ×3 (05:59→17:20)
[2021-04-24 07:44] LABS: BLOOD UREA NITROGEN,BUN 25 mg/dL (7.0-18.0); CARBON DIOXIDE,CO2 24.6 mmol/L (21.0-32.0); CHLORIDE,CL 105 mmol/L (98-107); GLUCOSE RANDOM 117 mg/dL (74-106); SODIUM,NA 141 mmol/L (136-148)
[2021-04-24] MEDS: Finasteride 5 MG Tab PO SCH (08:12)
[2021-04-24] MEDS: Dexamethasone 4 MG Tab PO SCH (08:12)
[2021-04-24] MEDS: Pantoprazole 40 MG Tab.CR PO SCH (08:13)
[2021-04-24] MEDS: Enoxaparin 40 MG/0.4 ML Syringe SUBCUT SCH (12:45)
[2021-04-24] MEDS ORDERED: Pantoprazole 40 MG Tab.CR PO ONE (12:45)
[2021-04-24] MEDS ORDERED: Dexamethasone 4 MG Tab PO ONE (13:00)
[2021-04-24] MEDS ORDERED: Finasteride 5 MG Tab PO ONE (13:00)
--- NOTE | 2021-04-24 14:10 | PCM.PN ---
- General Info Date of Service: 04/24/21 - Review of Systems Systems Review Comment:: patient has not been eating and refused his medications this morning, He feels depressed. After speaking with him this morning he feels his moods are manageable and agrees to take his medications. - Patient Data Vitals - Most Recent: Last Vital Signs Temp 37.1 C 04/24/21 11:11 Pulse 82 04/24/21 11:11 Resp 20 04/24/21 11:11 BP 129/71 04/24/21 11:11 Pulse Ox 90 L 04/24/21 11:11 Weight - Most Recent: 74.888 kg I&O - Last 24 Hours: Intake & Output 04/23/21 04/24/21 04/24/21 22:59 06:59 14:59 Intake Total 700 240 Output Total 400 325 Balance 300 -85 Lab Results Last 24 Hours: Laboratory Results - last 24 hr 04/24/21 04/24/21 Range/Units 06:38 06:38 WBC 13.19 H (4.0-11.0) K/uL RBC 5.32 (4.50-5.90) M/uL Hgb 16.2 (13.0-17.0) g/dL Hct 46.7 (38.0-50.0) % MCV 87.8 (80.0-98.0) fL MCH 30.5 (27.0-32.0) pg MCHC 34.7 (31.0-37.0) g/dL RDW Std Deviation 45.1 (28.0-62.0) fl RDW Coeff of [place] 14 (11.0-15.0) % Plt Count 338 (150-400) K/uL MPV 11.00 (7.40-12.00) fL Neut % (Auto) 89.2 H (48.0-80.0) % Lymph % (Auto) 4.6 L (16.0-40.0) % [place] % (Auto) 6.1 (0.0-15.0) % Eos % (Auto) 0.0 (0.0-7.0) % Baso % (Auto) 0.1 (0.0-1.5) % Neut # (Auto) 11.8 H (1.4-5.7) K/uL Lymph # (Auto) 0.6 (0.6-2.4) K/uL [place] # (Auto) 0.8 (0.0-0.8) K/uL Eos # (Auto) 0.0 (0.0-0.7) K/uL Baso # (Auto) 0.0 (0.0-0.1) K/uL Nucleated RBC % 0.0 /100WBC Nucleated RBCs # 0 K/uL Sodium 141 (136-148) mmol/L Potassium 4.0 (3.5-5.1) mmol/L Chloride 105 (98-107) mmol/L Carbon Dioxide 24.6 (21.0-32.0) mmol/L BUN 25 H (7.0-18.0) mg/dL Creatinine 0.9 (0.8-1.3) mg/dL Est Cr Clr Drug Dosing 70.92 mL/min Estimated GFR (MDRD) > 60.0 ml/min Glucose 117 H (74-106) mg/dL Calcium 8.7 (8.5-10.1) mg/dL Total Bilirubin 0.8 (0.2-1.0) mg/dL AST 35 (15-37) IU/L ALT 92 H (14-63) IU/L Alkaline Phosphatase 81 (46-116) U/L Total Protein 7.3 (6.4-8.2) g/dL Albumin 2.4 L (3.4-5.0) g/dL Globulin 4.9 H (2.6-4.0) g/dL Albumin/Globulin Ratio 0.5 L (0.9-1.6) Med Orders - Current: Current Medications Albuterol/Ipratropium (Albuterol/Ipratropium 3.0-0.5 Mg/3 Ml Neb Soln) 3 ml NEB Q6HRRT [facility] Last Admin: 04/24/21 12:25 Dose: Not Given Documented by: Artificial Tears (Carboxymethylcellulose Sodium 0.5% Ophth Soln 0.4 Ml Ud Box Of 30) 1 each EYEBOTH QID PRN PRN Reason: Dry Eyes Benzonatate (Benzonatate 100 Mg Cap) 100 mg PO TID PRN PRN Reason: Cough Last Admin: 04/21/21 16:42 Dose: 100 mg Documented by: Dexamethasone (Dexamethasone 4 Mg Tab) 6 mg PO DAILY [facility] Last Admin: 04/24/21 08:12 Dose: Not Given Documented by: Enoxaparin Sodium (Enoxaparin 40 Mg/0.4 Ml Syringe) 40 mg SUBCUT DAILY [facility] Last Admin: 04/24/21 12:45 Dose: Not Given Documented by: Famotidine (Famotidine 20 Mg Tab) 20 mg PO BEDTIME [facility] Last Admin: 04/23/21 20:03 Dose: 20 mg Documented by: Finasteride (Finasteride 5 Mg Tab) 5 mg PO DAILY [facility] Last Admin: 04/24/21 08:12 Dose: Not Given Documented by: Remdesivir 100 mg/ Sodium (Chloride) 100 mls @ 100 mls/hr IV Q24H [facility] Stop: 04/26/21 15:59 Last Admin: 04/23/21 14:56 Dose: 100 mls/hr Documented by: Pantoprazole Sodium (Pantoprazole 40 Mg Tab.Cr) 40 mg PO DAILY [facility] Last Admin: 04/24/21 08:13 Dose: Not Given Documented by: Mineral Oil/Petrolatum,White [ Refresh P.M.] 3.5 Gm Ointment 1 each EYEBOTH BEDTIME PRN PRN Reason: Dry Eyes Zinc 50 Mg Tablet 1 each PO DAILY [facility] Last Admin: 04/24/21 08:13 Dose: Not Given Documented by: Terbinafine 250 Mg (Tab) 1 each PO Q24H [facility] Last Admin: 04/23/21 18:00 Dose: Not Given Documented by: Tamsulosin HCl (Tamsulosin 0.4 Mg Cap.Er) 0.4 mg PO WITHDINNER [facility] Last Admin: 04/23/21 18:01 Dose: Not Given Documented by: Discontinued Medications Albuterol/Ipratropium (Albuterol/Ipratropium 3.0-0.5 Mg/3 Ml Neb Soln) 3 ml NEB ONETIME ONE Stop: 04/17/21 20:25 Last Admin: 04/17/21 20:35 Dose: 3 ml Documented by: Albuterol/Ipratropium (Albuterol/Ipratropium 3.0-0.5 Mg/3 Ml Neb Soln) 3 ml NEB Q4HRRT [facility] Last Admin: 04/18/21 10:47 Dose: Not Given Documented by: Dexamethasone (Dexamethasone 10 Mg/Ml Sdv) 10 mg IVPUSH ONETIME ONE Stop: 04/17/21 20:36 Last Admin: 04/17/21 20:42 Dose: 10 mg Documented by: Dexamethasone (Dexamethasone 4 Mg Tab) 6 mg PO ONETIME ONE Stop: 04/24/21 13:01 Last Admin: 04/24/21 12:53 Dose: 6 mg Documented by: Finasteride (Finasteride 5 Mg Tab) 5 mg PO ONETIME ONE Stop: 04/24/21 13:01 Last Admin: 04/24/21 12:52 Dose: 5 mg Documented by: Sodium Chloride (Normal Saline) 1,000 mls @ 999 mls/hr IV .Bolus ONE Stop: 04/17/21 21:24 Last Admin: 04/17/21 20:35 Dose: 999 mls/hr Documented by: Remdesivir 200 mg/ Sodium (Chloride) 250 mls @ 250 mls/hr IV ONETIME ONE Stop: 04/17/21 23:30 Last Admin: 04/18/21 00:32 Dose: 250 mls/hr Documented by: Remdesivir 200 mg/ Sodium (Chloride) 250 mls @ 250 mls/hr IV ONETIME ONE Stop: 04/22/21 15:05 Last Admin: 04/22/21 17:05 Dose: 250 mls/hr Documented by: Iopamidol (Iopamidol 755 Mg/Ml 500 Ml Multipack Bottle) 100 ml IVPUSH ONETIME [facility] Stop: 04/17/21 21:29 Last Admin: 04/17/21 21:28 Dose: 100 ml Documented by: Pantoprazole Sodium (Pantoprazole 40 Mg Tab.Cr) 40 mg PO ONETIME ONE Stop: 04/24/21 12:46 Last Admin: 04/24/21 12:52 Dose: 40 mg Documented by: Sodium Chloride (Sodium Chloride 0.9% 10 Ml Syringe) 10 ml FLUSH ASDIRECTED PRN PRN Reason: Keep Vein Open Last Admin: 04/17/21 20:35 Dose: 10 ml Documented by: Sodium Chloride (Sodium Chloride 0.9% 2.5 Ml Syringe) 2.5 ml FLUSH ASDIRECTED PRN PRN Reason: Keep Vein Open Last Admin: 04/17/21 20:35 Dose: 2.5 ml Documented by: Terbinafine HCl (Terbinafine 250 Mg Tab) 250 mg PO Q24H [facility] Last Admin: 04/18/21 15:35 Dose: Not Given Documented by: - Exam General: Cooperative Lungs: Clear to Auscultation, Normal Respiratory Effort Cardiovascular: Regular Rate, Regular Rhythm GI/Abdominal Exam: Soft, Non-Tender, No Distention Extremities: Non-Tender, No Pedal Edema Skin: Warm, Dry, Intact Neurological: No New Focal Deficit - Patient Data Lab Results Last 24 hrs: Laboratory Results - last 24 hr 04/24/21 04/24/21 Range/Units 06:38 06:38 WBC 13.19 H (4.0-11.0) K/uL RBC 5.32 (4.50-5.90) M/uL Hgb 16.2 (13.0-17.0) g/dL Hct 46.7 (38.0-50.0) % MCV 87.8 (80.0-98.0) fL MCH 30.5 (27.0-32.0) pg MCHC 34.7 (31.0-37.0) g/dL RDW Std Deviation 45.1 (28.0-62.0) fl RDW Coeff of [place] 14 (11.0-15.0) % Plt Count 338 (150-400) K/uL MPV 11.00 (7.40-12.00) fL Neut % (Auto) 89.2 H (48.0-80.0) % Lymph % (Auto) 4.6 L (16.0-40.0) % [place] % (Auto) 6.1 (0.0-15.0) % Eos % (Auto) 0.0 (0.0-7.0) % Baso % (Auto) 0.1 (0.0-1.5) % Neut # (Auto) 11.8 H (1.4-5.7) K/uL Lymph # (Auto) 0.6 (0.6-2.4) K/uL [place] # (Auto) 0.8 (0.0-0.8) K/uL Eos # (Auto) 0.0 (0.0-0.7) K/uL Baso # (Auto) 0.0 (0.0-0.1) K/uL Nucleated RBC % 0.0 /100WBC Nucleated RBCs # 0 K/uL Sodium 141 (136-148) mmol/L Potassium 4.0 (3.5-5.1) mmol/L Chloride 105 (98-107) mmol/L Carbon Dioxide 24.6 (21.0-32.0) mmol/L BUN 25 H (7.0-18.0) mg/dL Creatinine 0.9 (0.8-1.3) mg/dL Est Cr Clr Drug Dosing 70.92 mL/min Estimated GFR (MDRD) > 60.0 ml/min Glucose 117 H (74-106) mg/dL Calcium 8.7 (8.5-10.1) mg/dL Total Bilirubin 0.8 (0.2-1.0) mg/dL AST 35 (15-37) IU/L ALT 92 H (14-63) IU/L Alkaline Phosphatase 81 (46-116) U/L Total Protein 7.3 (6.4-8.2) g/dL Albumin 2.4 L (3.4-5.0) g/dL Globulin 4.9 H (2.6-4.0) g/dL Albumin/Globulin Ratio 0.5 L (0.9-1.6) Result Diagrams: 04/24/21 06:38 04/24/21 06:38 Sepsis Event Note - Evaluation Sepsis Screening Result: Sepsis Risk - Focused Exam Vital Signs: Vital Signs Temp Temp Temp Pulse Resp BP Pulse Ox 04/24/21 11:11 37.1 C 82 20 129/71 90 L 04/24/21 08:16 37.1 C 04/24/21 07:40 85 22 H 151/78 H 90 L 04/24/21 06:00 04/24/21 04:55 36.7 C 90 23 H 144/86 H 90 L Pulse Ox 04/24/21 11:11 04/24/21 08:16 04/24/21 07:40 04/24/21 06:00 90 L 04/24/21 04:55 - Problem List & Annotations (1) Respiratory failure with hypoxia SNOMED Code(s): 38729231462445175 Code(s): J96.91 - RESPIRATORY FAILURE, UNSPECIFIED WITH HYPOXIA Status: Acute Current Visit: Yes (2) COVID-19 SNOMED Code(s): 396037660 Code(s): U07.1 - COVID-19 Status: Acute Current Visit: Yes - Problem List Review Problem List Initiated/Reviewed/Updated: Yes - My Orders Last 24 Hours: My Active Orders 04/23/21 15:00 Remdesivir 100 mg Sodium Chloride 0.9% [Normal Saline AdvBag] 100 ml IV Q24H 04/25/21 05:11 CBC WITH AUTO DIFF [HEME] AM COMPREHENSIVE METABOLIC PN,CMP [CHEM] AM 04/26/21 05:11 CBC WITH AUTO DIFF [HEME] AM COMPREHENSIVE METABOLIC PN,CMP [CHEM] AM - Assessment Assessment:: Acute hypoxemic respiratory failure due to COVID 19 pneumonia Hypoxia: on 7 L NCN COVID: on dexamethason and remdesivir 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 Will Continue to work with PT/OT. BPH: Continue with home meds lovenox for DVT prophylaxis
[2021-04-24] MEDS: REMDESIVIR 100 MG in Sodium Chloride 0.9% 100 ML IV SCH (15:23)
[2021-04-24] MEDS: Terbinafine 250 MG Tab PO SCH (18:15)
[2021-04-24] MEDS: Tamsulosin 0.4 MG Cap.ER PO SCH (18:15)
[2021-04-24] MEDS: Famotidine 20 MG Tab PO SCH (20:34)
[2021-04-25] MEDS: Albuterol/Ipratropium 3.0-0.5 MG/3 ML Neb Soln NEB SCH ×4 (01:08→17:26)
[2021-04-25 07:35] LABS: BLOOD UREA NITROGEN,BUN 31 mg/dL (7.0-18.0); CARBON DIOXIDE,CO2 24.6 mmol/L (21.0-32.0); CHLORIDE,CL 107 mmol/L (98-107); GLUCOSE RANDOM 112 mg/dL (74-106); POTASSIUM,K 4.2 mmol/L (3.5-5.1); SODIUM,NA 141 mmol/L (136-148)
[2021-04-25] MEDS: Enoxaparin 40 MG/0.4 ML Syringe SUBCUT SCH (08:52)
[2021-04-25] MEDS: Pantoprazole 40 MG Tab.CR PO SCH (08:52)
[2021-04-25] MEDS: Finasteride 5 MG Tab PO SCH (08:53)
[2021-04-25] MEDS: Dexamethasone 4 MG Tab PO SCH (08:53)
--- NOTE | 2021-04-25 12:10 | PCM.PN ---
- General Info Date of Service: 04/25/21 - Review of Systems Systems Review Comment:: reports fatigue, did take his mediations this morning but is not eating much, reports a cotton mouth and dry lips - Patient Data Vitals - Most Recent: Last Vital Signs Temp 36.5 C 04/25/21 11:58 Pulse 85 04/25/21 11:58 Resp 22 H 04/25/21 11:58 BP 124/75 04/25/21 11:58 Pulse Ox 86 L 04/25/21 11:58 Weight - Most Recent: 74.888 kg I&O - Last 24 Hours: Intake & Output 04/24/21 04/25/21 04/25/21 22:59 06:59 14:59 Intake Total 240 100 Output Total 50 350 Balance 190 -250 Lab Results Last 24 Hours: Laboratory Results - last 24 hr 04/25/21 04/25/21 Range/Units 06:28 06:28 WBC 10.50 (4.0-11.0) K/uL RBC 5.40 (4.50-5.90) M/uL Hgb 16.4 (13.0-17.0) g/dL Hct 47.6 (38.0-50.0) % MCV 88.1 (80.0-98.0) fL MCH 30.4 (27.0-32.0) pg MCHC 34.5 (31.0-37.0) g/dL RDW Std Deviation 45.5 (28.0-62.0) fl RDW Coeff of [place] 14 (11.0-15.0) % Plt Count 338 (150-400) K/uL MPV 11.30 (7.40-12.00) fL Neut % (Auto) 86.4 H (48.0-80.0) % Lymph % (Auto) 5.9 L (16.0-40.0) % [place] % (Auto) 7.2 (0.0-15.0) % Eos % (Auto) 0.4 (0.0-7.0) % Baso % (Auto) 0.1 (0.0-1.5) % Neut # (Auto) 9.1 H (1.4-5.7) K/uL Lymph # (Auto) 0.6 (0.6-2.4) K/uL [place] # (Auto) 0.8 (0.0-0.8) K/uL Eos # (Auto) 0.0 (0.0-0.7) K/uL Baso # (Auto) 0.0 (0.0-0.1) K/uL Nucleated RBC % 0.0 /100WBC Nucleated RBCs # 0 K/uL Sodium 141 (136-148) mmol/L Potassium 4.2 (3.5-5.1) mmol/L Chloride 107 (98-107) mmol/L Carbon Dioxide 24.6 (21.0-32.0) mmol/L BUN 31 H (7.0-18.0) mg/dL Creatinine 0.9 (0.8-1.3) mg/dL Est Cr Clr Drug Dosing 70.92 mL/min Estimated GFR (MDRD) > 60.0 ml/min Glucose 112 H (74-106) mg/dL Calcium 8.5 (8.5-10.1) mg/dL Total Bilirubin 0.8 (0.2-1.0) mg/dL AST 24 (15-37) IU/L ALT 73 H (14-63) IU/L Alkaline Phosphatase 77 (46-116) U/L Total Protein 7.2 (6.4-8.2) g/dL Albumin 2.3 L (3.4-5.0) g/dL Globulin 4.9 H (2.6-4.0) g/dL Albumin/Globulin Ratio 0.5 L (0.9-1.6) Med Orders - Current: Current Medications Albuterol/Ipratropium (Albuterol/Ipratropium 3.0-0.5 Mg/3 Ml Neb Soln) 3 ml NEB Q6HRRT [facility] Last Admin: 04/25/21 06:53 Dose: Not Given Documented by: Artificial Tears (Carboxymethylcellulose Sodium 0.5% Ophth Soln 0.4 Ml Ud Box Of 30) 1 each EYEBOTH QID PRN PRN Reason: Dry Eyes Benzonatate (Benzonatate 100 Mg Cap) 100 mg PO TID PRN PRN Reason: Cough Last Admin: 04/21/21 16:42 Dose: 100 mg Documented by: Dexamethasone (Dexamethasone 4 Mg Tab) 6 mg PO DAILY [facility] Last Admin: 04/25/21 08:53 Dose: 6 mg Documented by: Enoxaparin Sodium (Enoxaparin 40 Mg/0.4 Ml Syringe) 40 mg SUBCUT DAILY [facility] Last Admin: 04/25/21 08:52 Dose: 40 mg Documented by: Famotidine (Famotidine 20 Mg Tab) 20 mg PO BEDTIME [facility] Last Admin: 04/24/21 20:34 Dose: Not Given Documented by: Finasteride (Finasteride 5 Mg Tab) 5 mg PO DAILY [facility] Last Admin: 04/25/21 08:53 Dose: 5 mg Documented by: Remdesivir 100 mg/ Sodium (Chloride) 100 mls @ 100 mls/hr IV Q24H [facility] Stop: 04/26/21 15:59 Last Admin: 04/24/21 15:23 Dose: 100 mls/hr Documented by: Pantoprazole Sodium (Pantoprazole 40 Mg Tab.Cr) 40 mg PO DAILY [facility] Last Admin: 04/25/21 08:52 Dose: 40 mg Documented by: Mineral Oil/Petrolatum,White [ Refresh P.M.] 3.5 Gm Ointment 1 each EYEBOTH BEDTIME PRN PRN Reason: Dry Eyes Zinc 50 Mg Tablet 1 each PO DAILY [facility] Last Admin: 04/24/21 08:13 Dose: Not Given Documented by: Terbinafine 250 Mg (Tab) 1 each PO Q24H [facility] Last Admin: 04/24/21 18:15 Dose: Not Given Documented by: Tamsulosin HCl (Tamsulosin 0.4 Mg Cap.Er) 0.4 mg PO WITHDINNER [facility] Last Admin: 04/24/21 18:15 Dose: 0.4 mg Documented by: Discontinued Medications Albuterol/Ipratropium (Albuterol/Ipratropium 3.0-0.5 Mg/3 Ml Neb Soln) 3 ml NEB ONETIME ONE Stop: 04/17/21 20:25 Last Admin: 04/17/21 20:35 Dose: 3 ml Documented by: Albuterol/Ipratropium (Albuterol/Ipratropium 3.0-0.5 Mg/3 Ml Neb Soln) 3 ml NEB Q4HRRT [facility] Last Admin: 04/18/21 10:47 Dose: Not Given Documented by: Dexamethasone (Dexamethasone 10 Mg/Ml Sdv) 10 mg IVPUSH ONETIME ONE Stop: 04/17/21 20:36 Last Admin: 04/17/21 20:42 Dose: 10 mg Documented by: Dexamethasone (Dexamethasone 4 Mg Tab) 6 mg PO ONETIME ONE Stop: 04/24/21 13:01 Last Admin: 04/24/21 12:53 Dose: 6 mg Documented by: Finasteride (Finasteride 5 Mg Tab) 5 mg PO ONETIME ONE Stop: 04/24/21 13:01 Last Admin: 04/24/21 12:52 Dose: 5 mg Documented by: Sodium Chloride (Normal Saline) 1,000 mls @ 999 mls/hr IV .Bolus ONE Stop: 04/17/21 21:24 Last Admin: 04/17/21 20:35 Dose: 999 mls/hr Documented by: Remdesivir 200 mg/ Sodium (Chloride) 250 mls @ 250 mls/hr IV ONETIME ONE Stop: 04/17/21 23:30 Last Admin: 04/18/21 00:32 Dose: 250 mls/hr Documented by: Remdesivir 200 mg/ Sodium (Chloride) 250 mls @ 250 mls/hr IV ONETIME ONE Stop: 04/22/21 15:05 Last Admin: 04/22/21 17:05 Dose: 250 mls/hr Documented by: Iopamidol (Iopamidol 755 Mg/Ml 500 Ml Multipack Bottle) 100 ml IVPUSH ONETIME STA Stop: 04/17/21 21:29 Last Admin: 04/17/21 21:28 Dose: 100 ml Documented by: Pantoprazole Sodium (Pantoprazole 40 Mg Tab.Cr) 40 mg PO ONETIME ONE Stop: 04/24/21 12:46 Last Admin: 04/24/21 12:52 Dose: 40 mg Documented by: Sodium Chloride (Sodium Chloride 0.9% 10 Ml Syringe) 10 ml FLUSH ASDIRECTED PRN PRN Reason: Keep Vein Open Last Admin: 04/17/21 20:35 Dose: 10 ml Documented by: Sodium Chloride (Sodium Chloride 0.9% 2.5 Ml Syringe) 2.5 ml FLUSH ASDIRECTED PRN PRN Reason: Keep Vein Open Last Admin: 04/17/21 20:35 Dose: 2.5 ml Documented by: Terbinafine HCl (Terbinafine 250 Mg Tab) 250 mg PO Q24H [facility] Last Admin: 04/18/21 15:35 Dose: Not Given Documented by: - Exam General: Alert, Oriented HEENT: Other (dry mucous [place]) Neck: Supple Lungs: Clear to Auscultation, Normal Respiratory Effort Cardiovascular: Regular Rate, Regular Rhythm GI/Abdominal Exam: Soft, Non-Tender, No Distention Skin: Warm, Dry, Intact Neurological: No New Focal Deficit - Patient Data Lab Results Last 24 hrs: Laboratory Results - last 24 hr 04/25/21 04/25/21 Range/Units 06:28 06:28 WBC 10.50 (4.0-11.0) K/uL RBC 5.40 (4.50-5.90) M/uL Hgb 16.4 (13.0-17.0) g/dL Hct 47.6 (38.0-50.0) % MCV 88.1 (80.0-98.0) fL MCH 30.4 (27.0-32.0) pg MCHC 34.5 (31.0-37.0) g/dL RDW Std Deviation 45.5 (28.0-62.0) fl RDW Coeff of [place] 14 (11.0-15.0) % Plt Count 338 (150-400) K/uL MPV 11.30 (7.40-12.00) fL Neut % (Auto) 86.4 H (48.0-80.0) % Lymph % (Auto) 5.9 L (16.0-40.0) % [place] % (Auto) 7.2 (0.0-15.0) % Eos % (Auto) 0.4 (0.0-7.0) % Baso % (Auto) 0.1 (0.0-1.5) % Neut # (Auto) 9.1 H (1.4-5.7) K/uL Lymph # (Auto) 0.6 (0.6-2.4) K/uL Randall # (Auto) 0.8 (0.0-0.8) K/uL Eos # (Auto) 0.0 (0.0-0.7) K/uL Baso # (Auto) 0.0 (0.0-0.1) K/uL Nucleated RBC % 0.0 /100WBC Nucleated RBCs # 0 K/uL Sodium 141 (136-148) mmol/L Potassium 4.2 (3.5-5.1) mmol/L Chloride 107 (98-107) mmol/L Carbon Dioxide 24.6 (21.0-32.0) mmol/L BUN 31 H (7.0-18.0) mg/dL Creatinine 0.9 (0.8-1.3) mg/dL Est Cr Clr Drug Dosing 70.92 mL/min Estimated GFR (MDRD) > 60.0 ml/min Glucose 112 H (74-106) mg/dL Calcium 8.5 (8.5-10.1) mg/dL Total Bilirubin 0.8 (0.2-1.0) mg/dL AST 24 (15-37) IU/L ALT 73 H (14-63) IU/L Alkaline Phosphatase 77 (46-116) U/L Total Protein 7.2 (6.4-8.2) g/dL Albumin 2.3 L (3.4-5.0) g/dL Globulin 4.9 H (2.6-4.0) g/dL Albumin/Globulin Ratio 0.5 L (0.9-1.6) Result Diagrams: 04/25/21 06:28 04/25/21 06:28 Sepsis Event Note - Evaluation Sepsis Screening Result: No Definite Risk - Focused Exam Vital Signs: Vital Signs Temp Temp Pulse Resp BP Pulse Ox Pulse Ox 04/25/21 11:58 36.5 C 85 22 H 124/75 86 L 04/25/21 07:48 37.1 C 74 18 124/75 90 L 04/25/21 06:00 93 L 04/25/21 03:00 36.3 C 75 18 139/80 93 L - Problem List & Annotations (1) Respiratory failure with hypoxia SNOMED Code(s): 07383774187907782 Code(s): J96.91 - RESPIRATORY FAILURE, UNSPECIFIED WITH HYPOXIA Status: Acute Current Visit: Yes (2) COVID-19 SNOMED Code(s): 596663364 Code(s): U07.1 - COVID-19 Status: Acute Current Visit: Yes - Problem List Review Problem List Initiated/Reviewed/Updated: Yes - My Orders Last 24 Hours: My Active Orders 04/26/21 05:11 CBC WITH AUTO DIFF [HEME] AM COMPREHENSIVE METABOLIC PN,CMP [CHEM] AM - Assessment Assessment:: Acute hypoxemic respiratory failure due to COVID 19 pneumonia Hypoxia: on 6 L NCN COVID: on dexamethason and remdesivir 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 Will Continue to work with PT/OT. BPH: Continue with home meds appears dehydrated will bolus 500 mls NS lovenox for DVT prophylaxis
[2021-04-25] MEDS ORDERED: Sodium Chloride 0.9% 500 ML IV SCH (12:15)
[2021-04-25] MEDS: REMDESIVIR 100 MG in Sodium Chloride 0.9% 100 ML IV SCH (16:25)
[2021-04-25] MEDS: Terbinafine 250 MG Tab PO SCH (17:25)
[2021-04-25] MEDS: Tamsulosin 0.4 MG Cap.ER PO SCH ×2 (17:57→18:11)
[2021-04-25] MEDS: Famotidine 20 MG Tab PO SCH (20:51)
[2021-04-26] MEDS: Albuterol/Ipratropium 3.0-0.5 MG/3 ML Neb Soln NEB SCH ×5 (00:47→23:58)
[2021-04-26 05:55] LABS: BLOOD UREA NITROGEN,BUN 33 mg/dL (7.0-18.0); CARBON DIOXIDE,CO2 27.4 mmol/L (21.0-32.0); CHLORIDE,CL 107 mmol/L (98-107); GLUCOSE RANDOM 90 mg/dL (74-106); POTASSIUM,K 5.2 mmol/L (3.5-5.1); SODIUM,NA 145 mmol/L (136-148)
[2021-04-26] MEDS: Enoxaparin 40 MG/0.4 ML Syringe SUBCUT SCH (09:26)
[2021-04-26] MEDS: Pantoprazole 40 MG Tab.CR PO SCH (09:27)
[2021-04-26] MEDS: Dexamethasone 4 MG Tab PO SCH (09:27)
[2021-04-26] MEDS: Finasteride 5 MG Tab PO SCH (09:28)
--- NOTE | 2021-04-26 12:44 | PCM.PN ---
- General Info Date of Service: 04/26/21 Admission Dx/Problem (Free Text): Pt is confused. He can not accurately tell me where he is at. He perseverates over the same thing over and over. He does not always listen to what the staff asks him to do. - Patient Data Vitals - Most Recent: Last Vital Signs Temp 98.5 F 04/26/21 10:36 Pulse 80 04/26/21 10:36 Resp 28 H 04/26/21 10:36 BP 126/75 04/26/21 10:36 Pulse Ox 91 L 04/26/21 10:36 Weight - Most Recent: 165 lb 1.6 oz I&O - Last 24 Hours: Intake & Output 04/25/21 04/26/21 04/26/21 22:59 06:59 14:59 Intake Total 840 295 Output Total 300 200 Balance 540 95 Lab Results Last 24 Hours: Laboratory Results - last 24 hr 04/26/21 04/26/21 Range/Units 04:50 04:50 WBC 10.93 (4.0-11.0) K/uL RBC 5.48 (4.50-5.90) M/uL Hgb 16.7 (13.0-17.0) g/dL Hct 48.8 (38.0-50.0) % MCV 89.1 (80.0-98.0) fL MCH 30.5 (27.0-32.0) pg MCHC 34.2 (31.0-37.0) g/dL RDW Std Deviation 45.8 (28.0-62.0) fl RDW Coeff of [place] 14 (11.0-15.0) % Plt Count 392 (150-400) K/uL MPV 11.50 (7.40-12.00) fL Neut % (Auto) 85.2 H (48.0-80.0) % Lymph % (Auto) 7.1 L (16.0-40.0) % [place] % (Auto) 6.3 (0.0-15.0) % Eos % (Auto) 1.3 (0.0-7.0) % Baso % (Auto) 0.1 (0.0-1.5) % Neut # (Auto) 9.3 H (1.4-5.7) K/uL Lymph # (Auto) 0.8 (0.6-2.4) K/uL [place] # (Auto) 0.7 (0.0-0.8) K/uL Eos # (Auto) 0.1 (0.0-0.7) K/uL Baso # (Auto) 0.0 (0.0-0.1) K/uL Nucleated RBC % 0.0 /100WBC Nucleated RBCs # 0 K/uL Sodium 145 (136-148) mmol/L Potassium 5.2 H (3.5-5.1) mmol/L Chloride 107 (98-107) mmol/L Carbon Dioxide 27.4 (21.0-32.0) mmol/L BUN 33 H (7.0-18.0) mg/dL Creatinine 1.1 (0.8-1.3) mg/dL Est Cr Clr Drug Dosing 58.02 mL/min Estimated GFR (MDRD) > 60.0 ml/min Glucose 90 (74-106) mg/dL Calcium 8.4 L (8.5-10.1) mg/dL Total Bilirubin 0.9 (0.2-1.0) mg/dL AST 21 (15-37) IU/L ALT 65 H (14-63) IU/L Alkaline Phosphatase 78 (46-116) U/L Total Protein 6.5 (6.4-8.2) g/dL Albumin 2.3 L (3.4-5.0) g/dL Globulin 4.2 H (2.6-4.0) g/dL Albumin/Globulin Ratio 0.6 L (0.9-1.6) Med Orders - Current: Current Medications Albuterol/Ipratropium (Albuterol/Ipratropium 3.0-0.5 Mg/3 Ml Neb Soln) 3 ml NEB Q6HRRT [facility] Last Admin: 04/26/21 11:38 Dose: 3 ml Documented by: Artificial Tears (Carboxymethylcellulose Sodium 0.5% Ophth Soln 0.4 Ml Ud Box Of 30) 1 each EYEBOTH QID PRN PRN Reason: Dry Eyes Benzonatate (Benzonatate 100 Mg Cap) 100 mg PO TID PRN PRN Reason: Cough Last Admin: 04/21/21 16:42 Dose: 100 mg Documented by: Dexamethasone (Dexamethasone 4 Mg Tab) 6 mg PO DAILY [facility] Last Admin: 04/26/21 09:27 Dose: 6 mg Documented by: Enoxaparin Sodium (Enoxaparin 40 Mg/0.4 Ml Syringe) 40 mg SUBCUT DAILY [facility] Last Admin: 04/26/21 09:26 Dose: 40 mg Documented by: Famotidine (Famotidine 20 Mg Tab) 20 mg PO BEDTIME [facility] Last Admin: 04/25/21 20:51 Dose: 20 mg Documented by: Finasteride (Finasteride 5 Mg Tab) 5 mg PO DAILY [facility] Last Admin: 04/26/21 09:28 Dose: 5 mg Documented by: Remdesivir 100 mg/ Sodium (Chloride) 100 mls @ 100 mls/hr IV Q24H [facility] Stop: 04/26/21 15:59 Last Admin: 04/25/21 16:25 Dose: 100 mls/hr Documented by: Pantoprazole Sodium (Pantoprazole 40 Mg Tab.Cr) 40 mg PO DAILY [facility] Last Admin: 04/26/21 09:27 Dose: 40 mg Documented by: Mineral Oil/Petrolatum,White [ Refresh P.M.] 3.5 Gm Ointment 1 each EYEBOTH BEDTIME PRN PRN Reason: Dry Eyes Zinc 50 Mg Tablet 1 each PO DAILY [facility] Last Admin: 04/25/21 12:47 Dose: Not Given Documented by: Terbinafine 250 Mg (Tab) 1 each PO Q24H [facility] Last Admin: 04/25/21 17:25 Dose: Not Given Documented by: Tamsulosin HCl (Tamsulosin 0.4 Mg Cap.Er) 0.4 mg PO WITHDINNER [facility] Last Admin: 04/25/21 18:11 Dose: Not Given Documented by: Discontinued Medications Albuterol/Ipratropium (Albuterol/Ipratropium 3.0-0.5 Mg/3 Ml Neb Soln) 3 ml NEB ONETIME ONE Stop: 04/17/21 20:25 Last Admin: 04/17/21 20:35 Dose: 3 ml Documented by: Albuterol/Ipratropium (Albuterol/Ipratropium 3.0-0.5 Mg/3 Ml Neb Soln) 3 ml NEB Q4HRRT [facility] Last Admin: 04/18/21 10:47 Dose: Not Given Documented by: Dexamethasone (Dexamethasone 10 Mg/Ml Sdv) 10 mg IVPUSH ONETIME ONE Stop: 04/17/21 20:36 Last Admin: 04/17/21 20:42 Dose: 10 mg Documented by: Dexamethasone (Dexamethasone 4 Mg Tab) 6 mg PO ONETIME ONE Stop: 04/24/21 13:01 Last Admin: 04/24/21 12:53 Dose: 6 mg Documented by: Finasteride (Finasteride 5 Mg Tab) 5 mg PO ONETIME ONE Stop: 04/24/21 13:01 Last Admin: 04/24/21 12:52 Dose: 5 mg Documented by: Sodium Chloride (Normal Saline) 1,000 mls @ 999 mls/hr IV .Bolus ONE Stop: 04/17/21 21:24 Last Admin: 04/17/21 20:35 Dose: 999 mls/hr Documented by: Remdesivir 200 mg/ Sodium (Chloride) 250 mls @ 250 mls/hr IV ONETIME ONE Stop: 04/17/21 23:30 Last Admin: 04/18/21 00:32 Dose: 250 mls/hr Documented by: Remdesivir 200 mg/ Sodium (Chloride) 250 mls @ 250 mls/hr IV ONETIME ONE Stop: 04/22/21 15:05 Last Admin: 04/22/21 17:05 Dose: 250 mls/hr Documented by: Sodium Chloride (Normal Saline) 500 mls @ 500 mls/hr IV .BOLUS [facility] Last Admin: 04/25/21 15:19 Dose: 500 mls/hr Documented by: Iopamidol (Iopamidol 755 Mg/Ml 500 Ml Multipack Bottle) 100 ml IVPUSH ONETIME S TA Stop: 04/17/21 21:29 Last Admin: 04/17/21 21:28 Dose: 100 ml Documented by: Pantoprazole Sodium (Pantoprazole 40 Mg Tab.Cr) 40 mg PO ONETIME ONE Stop: 04/24/21 12:46 Last Admin: 04/24/21 12:52 Dose: 40 mg Documented by: Sodium Chloride (Sodium Chloride 0.9% 10 Ml Syringe) 10 ml FLUSH ASDIRECTED PRN PRN Reason: Keep Vein Open Last Admin: 04/17/21 20:35 Dose: 10 ml Documented by: Sodium Chloride (Sodium Chloride 0.9% 2.5 Ml Syringe) 2.5 ml FLUSH ASDIRECTED PRN PRN Reason: Keep Vein Open Last Admin: 04/17/21 20:35 Dose: 2.5 ml Documented by: Terbinafine HCl (Terbinafine 250 Mg Tab) 250 mg PO Q24H [facility] Last Admin: 04/18/21 15:35 Dose: Not Given Documented by: - Exam Physical Findings Comments:: General: Elderly male. Laying supine in bed. Responded to some of my questions but chose not to open his eyes and have good eye contact with me. CVS: S1S2 appreciated. RRR lungs: clear bilaterally. No rales or wheezes. Pa: soft, non tender. Bowel sounds are present ext: no clubbing, cyanosis or edema neuro: moves all extremities psych: Depressed mood. Flat affect - Patient Data Lab Results Last 24 hrs: Laboratory Results - last 24 hr 04/26/21 04/26/21 Range/Units 04:50 04:50 WBC 10.93 (4.0-11.0) K/uL RBC 5.48 (4.50-5.90) M/uL Hgb 16.7 (13.0-17.0) g/dL Hct 48.8 (38.0-50.0) % MCV 89.1 (80.0-98.0) fL MCH 30.5 (27.0-32.0) pg MCHC 34.2 (31.0-37.0) g/dL RDW Std Deviation 45.8 (28.0-62.0) fl RDW Coeff of [place] 14 (11.0-15.0) % Plt Count 392 (150-400) K/uL MPV 11.50 (7.40-12.00) fL Neut % (Auto) 85.2 H (48.0-80.0) % Lymph % (Auto) 7.1 L (16.0-40.0) % [place] % (Auto) 6.3 (0.0-15.0) % Eos % (Auto) 1.3 (0.0-7.0) % Baso % (Auto) 0.1 (0.0-1.5) % Neut # (Auto) 9.3 H (1.4-5.7) K/uL Lymph # (Auto) 0.8 (0.6-2.4) K/uL [place] # (Auto) 0.7 (0.0-0.8) K/uL Eos # (Auto) 0.1 (0.0-0.7) K/uL Baso # (Auto) 0.0 (0.0-0.1) K/uL Nucleated RBC % 0.0 /100WBC Nucleated RBCs # 0 K/uL Sodium 145 (136-148) mmol/L Potassium 5.2 H (3.5-5.1) mmol/L Chloride 107 (98-107) mmol/L Carbon Dioxide 27.4 (21.0-32.0) mmol/L BUN 33 H (7.0-18.0) mg/dL Creatinine 1.1 (0.8-1.3) mg/dL Est Cr Clr Drug Dosing 58.02 mL/min Estimated GFR (MDRD) > 60.0 ml/min Glucose 90 (74-106) mg/dL Calcium 8.4 L (8.5-10.1) mg/dL Total Bilirubin 0.9 (0.2-1.0) mg/dL AST 21 (15-37) IU/L ALT 65 H (14-63) IU/L Alkaline Phosphatase 78 (46-116) U/L Total Protein 6.5 (6.4-8.2) g/dL Albumin 2.3 L (3.4-5.0) g/dL Globulin 4.2 H (2.6-4.0) g/dL Albumin/Globulin Ratio 0.6 L (0.9-1.6) Result Diagrams: 04/26/21 04:50 04/26/21 04:50 Sepsis Event Note - Evaluation Sepsis Screening Result: No Definite Risk - Focused Exam Vital Signs: Vital Signs Temp Pulse Resp BP Pulse Ox 04/26/21 10:36 98.5 F 80 28 H 126/75 91 L 04/26/21 09:48 98.5 F 80 22 H 130/76 88 L 04/26/21 03:00 97.7 F 63 20 149/81 H 90 L - Problem List & Annotations (1) Acute respiratory failure due to COVID-19 SNOMED Code(s): 956027668 Code(s): U07.1 - COVID-19; J96.00 - ACUTE RESPIRATORY FAILURE, UNSP W HYPOXIA OR HYPERCAPNIA Status: Acute Current Visit: Yes (2) Pneumonia due to COVID-19 virus SNOMED Code(s): 195014258514771349 Code(s): U07.1 - COVID-19; J12.82 - PNEUMONIA DUE TO CORONAVIRUS DISEASE 2019 Status: Acute Current Visit: Yes (3) BPH (benign prostatic hyperplasia) SNOMED Code(s): 427897819 Code(s): N40.0 - BENIGN PROSTATIC HYPERPLASIA WITHOUT LOWER URINRY TRACT SYMP Status: Acute Current Visit: Yes (4) Asbestos-induced pleural plaque SNOMED Code(s): 530799007 Code(s): J92.0 - PLEURAL PLAQUE WITH PRESENCE OF ASBESTOS Status: Acute Current Visit: Yes Annotation/Comment:: will need supportive measures (5) Generalized muscle weakness SNOMED Code(s): 13259432, 30242406 Code(s): M62.81 - MUSCLE WEAKNESS (GENERALIZED) Status: Acute Current Visit: Yes - Problem List Review Problem List Initiated/Reviewed/Updated: Yes - Assessment Assessment:: Acute hypoxemic respiratory failure due to COVID 19 pneumonia Pt is on 6 L Oxygen by ID. He does remove the cannula often and has to be red irected Pt was treated with dexamethasone day 9 10 and remdesivir day 4 of 5. 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 Will Continue to encourage PT/OT. Pt will most likely need SNF placement. Encephalopathy. 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 I will obtain a psych consult. I will start him on a lexapro 10mg daily. Pt will need to stay in the hospital for a total of 20 days before being accepted at any SNF/ rehab. BPH: On home meds DVT prophylaxis On SQ lovenox.
[2021-04-26] MEDS: REMDESIVIR 100 MG in Sodium Chloride 0.9% 100 ML IV SCH (16:34)
[2021-04-26] MEDS: Tamsulosin 0.4 MG Cap.ER PO SCH (17:58)
[2021-04-26] MEDS: Terbinafine 250 MG Tab PO SCH (18:00)
[2021-04-26] MEDS: Famotidine 20 MG Tab PO SCH (20:19)
[2021-04-27] MEDS: Albuterol/Ipratropium 3.0-0.5 MG/3 ML Neb Soln NEB SCH ×3 (09:11→17:48)
[2021-04-27] MEDS: Pantoprazole 40 MG Tab.CR PO SCH (09:24)
[2021-04-27] MEDS: Dexamethasone 4 MG Tab PO SCH (09:24)
[2021-04-27] MEDS: Enoxaparin 40 MG/0.4 ML Syringe SUBCUT SCH (09:25)
[2021-04-27] MEDS: Finasteride 5 MG Tab PO SCH (09:25)
[2021-04-27] MEDS: Terbinafine 250 MG Tab PO SCH (17:24)
[2021-04-27] MEDS: Tamsulosin 0.4 MG Cap.ER PO SCH (17:24)
[2021-04-27] MEDS: Famotidine 20 MG Tab PO SCH (20:01)
[2021-04-28] MEDS: Albuterol/Ipratropium 3.0-0.5 MG/3 ML Neb Soln NEB SCH ×4 (00:15→17:09)
[2021-04-28] MEDS: Pantoprazole 40 MG Tab.CR PO SCH (09:07)
[2021-04-28] MEDS: Dexamethasone 4 MG Tab PO SCH (09:07)
[2021-04-28] MEDS: Finasteride 5 MG Tab PO SCH (09:07)
[2021-04-28] MEDS: Enoxaparin 40 MG/0.4 ML Syringe SUBCUT SCH (09:08)
--- NOTE | 2021-04-28 10:58 | PCM.PN ---
- General Info Date of Service: 04/27/21 Admission Dx/Problem (Free Text): Pt is more cooperative today. He can only do about 500cc on the incentive spirometer. - Patient Data Vitals - Most Recent: Last Vital Signs Temp 97.7 F 04/28/21 08:20 Pulse 83 04/28/21 08:20 Resp 18 04/28/21 08:20 BP 115/68 04/28/21 08:20 Pulse Ox 92 L 04/28/21 08:20 Weight - Most Recent: 165 lb 1.6 oz I&O - Last 24 Hours: Intake & Output 04/27/21 04/28/21 04/28/21 22:59 06:59 14:59 Intake Total 800 Output Total 275 Balance 525 Med Orders - Current: Current Medications Albuterol/Ipratropium (Albuterol/Ipratropium 3.0-0.5 Mg/3 Ml Neb Soln) 3 ml NEB Q6HRRT [facility] Last Admin: 04/28/21 06:37 Dose: 3 ml Documented by: Artificial Tears (Carboxymethylcellulose Sodium 0.5% Ophth Soln 0.4 Ml Ud Box Of 30) 1 each EYEBOTH QID PRN PRN Reason: Dry Eyes Benzonatate (Benzonatate 100 Mg Cap) 100 mg PO TID PRN PRN Reason: Cough Last Admin: 04/21/21 16:42 Dose: 100 mg Documented by: Dexamethasone (Dexamethasone 4 Mg Tab) 6 mg PO DAILY [facility] Last Admin: 04/28/21 09:07 Dose: 6 mg Documented by: Enoxaparin Sodium (Enoxaparin 40 Mg/0.4 Ml Syringe) 40 mg SUBCUT DAILY [facility] Last Admin: 04/28/21 09:08 Dose: 40 mg Documented by: Famotidine (Famotidine 20 Mg Tab) 20 mg PO BEDTIME [facility] Last Admin: 04/27/21 20:01 Dose: 20 mg Documented by: Finasteride (Finasteride 5 Mg Tab) 5 mg PO DAILY [facility] Last Admin: 04/28/21 09:07 Dose: 5 mg Documented by: Pantoprazole Sodium (Pantoprazole 40 Mg Tab.Cr) 40 mg PO DAILY [facility] Last Admin: 04/28/21 09:07 Dose: 40 mg Documented by: Mineral Oil/Petrolatum,White [ Refresh P.M.] 3.5 Gm Ointment 1 each EYEBOTH BEDTIME PRN PRN Reason: Dry Eyes Zinc 50 Mg Tablet 1 each PO DAILY [facility] Last Admin: 04/27/21 11:52 Dose: Not Given Documented by: Terbinafine 250 Mg (Tab) 1 each PO Q24H [facility] Last Admin: 04/27/21 17:24 Dose: Not Given Documented by: Tamsulosin HCl (Tamsulosin 0.4 Mg Cap.Er) 0.4 mg PO WITHDINNER [facility] Last Admin: 04/27/21 17:24 Dose: 0.4 mg Documented by: Discontinued Medications Albuterol/Ipratropium (Albuterol/Ipratropium 3.0-0.5 Mg/3 Ml Neb Soln) 3 ml NEB ONETIME ONE Stop: 04/17/21 20:25 Last Admin: 04/17/21 20:35 Dose: 3 ml Documented by: Albuterol/Ipratropium (Albuterol/Ipratropium 3.0-0.5 Mg/3 Ml Neb Soln) 3 ml NEB Q4HRRT [facility] Last Admin: 04/18/21 10:47 Dose: Not Given Documented by: Dexamethasone (Dexamethasone 10 Mg/Ml Sdv) 10 mg IVPUSH ONETIME ONE Stop: 04/17/21 20:36 Last Admin: 04/17/21 20:42 Dose: 10 mg Documented by: Dexamethasone (Dexamethasone 4 Mg Tab) 6 mg PO ONETIME ONE Stop: 04/24/21 13:01 Last Admin: 04/24/21 12:53 Dose: 6 mg Documented by: Finasteride (Finasteride 5 Mg Tab) 5 mg PO ONETIME ONE Stop: 04/24/21 13:01 Last Admin: 04/24/21 12:52 Dose: 5 mg Documented by: Sodium Chloride (Normal Saline) 1,000 mls @ 999 mls/hr IV .Bolus ONE Stop: 04/17/21 21:24 Last Admin: 04/17/21 20:35 Dose: 999 mls/hr Documented by: Remdesivir 200 mg/ Sodium (Chloride) 250 mls @ 250 mls/hr IV ONETIME ONE Stop: 04/17/21 23:30 Last Admin: 04/18/21 00:32 Dose: 250 mls/hr Documented by: Remdesivir 200 mg/ Sodium (Chloride) 250 mls @ 250 mls/hr IV ONETIME ONE Stop: 04/22/21 15:05 Last Admin: 04/22/21 17:05 Dose: 250 mls/hr Documented by: Remdesivir 100 mg/ Sodium (Chloride) 100 mls @ 100 mls/hr IV Q24H [facility] Stop: 04/26/21 15:59 Last Admin: 04/26/21 16:34 Dose: 100 mls/hr Documented by: Sodium Chloride (Normal Saline) 500 mls @ 500 mls/hr IV .BOLUS [facility] Last Admin: 04/25/21 15:19 Dose: 500 mls/hr Documented by: Iopamidol (Iopamidol 755 Mg/Ml 500 Ml Multipack Bottle) 100 ml IVPUSH ONETIME STA Stop: 04/17/21 21:29 Last Admin: 04/17/21 21:28 Dose: 100 ml Documented by: Pantoprazole Sodium (Pantoprazole 40 Mg Tab.Cr) 40 mg PO ONETIME ONE Stop: 04/24/21 12:46 Last Admin: 04/24/21 12:52 Dose: 40 mg Documented by: Sodium Chloride (Sodium Chloride 0.9% 10 Ml Syringe) 10 ml FLUSH ASDIRECTED PRN PRN Reason: Keep Vein Open Last Admin: 04/17/21 20:35 Dose: 10 ml Documented by: Sodium Chloride (Sodium Chloride 0.9% 2.5 Ml Syringe) 2.5 ml FLUSH ASDIRECTED PRN PRN Reason: Keep Vein Open Last Admin: 04/17/21 20:35 Dose: 2.5 ml Documented by: Terbinafine HCl (Terbinafine 250 Mg Tab) 250 mg PO Q24H [facility] Last Admin: 04/18/21 15:35 Dose: Not Given Documented by: - Exam Physical Findings Comments:: General: Elderly male. Sitting up in bed having breakfast. CVS: S1S2 appreciated. RRR lungs: clear bilaterally. No rales or wheezes. Pa: soft, non tender. Bowel sounds are present ext: no clubbing, cyanosis or edema neuro: moves all extremities psych: Depressed mood. Flat affect - Patient Data Result Diagrams: 04/26/21 04:50 04/26/21 04:50 Sepsis Event Note - Evaluation Sepsis Screening Result: No Definite Risk - Focused Exam Vital Signs: Vital Signs Temp Pulse Resp BP Pulse Ox 04/28/21 08:20 97.7 F 83 18 115/68 92 L 04/28/21 03:14 98.1 F 68 18 113/66 92 L 04/28/21 00:00 98.2 F 74 18 110/72 93 L - Problem List & Annotations (1) Acute respiratory failure due to COVID-19 SNOMED Code(s): 746016472 Code(s): U07.1 - COVID-19; J96.00 - ACUTE RESPIRATORY FAILURE, UNSP W HYPOXIA OR HYPERCAPNIA Status: Acute Current Visit: Yes (2) Pneumonia due to COVID-19 virus SNOMED Code(s): 679864775724155969 Code(s): U07.1 - COVID-19; J12.82 - PNEUMONIA DUE TO CORONAVIRUS DISEASE 2018 Status: Acute Current Visit: Yes (3) BPH (benign prostatic hyperplasia) SNOMED Code(s): 989192088 Code(s): N40.0 - BENIGN PROSTATIC HYPERPLASIA WITHOUT LOWER URINRY TRACT SYMP Status: Acute Current Visit: Yes (4) Asbestos-induced pleural plaque SNOMED Code(s): 024938118 Code(s): J92.0 - PLEURAL PLAQUE WITH PRESENCE OF ASBESTOS Status: Acute Current Visit: Yes Annotation/Comment:: will need supportive measures (5) Generalized muscle weakness SNOMED Code(s): 35022263, 22092380 Code(s): M62.81 - MUSCLE WEAKNESS (GENERALIZED) Status: Acute Current Visit: Yes - Problem List Review Problem List Initiated/Reviewed/Updated: Yes - Assessment Assessment:: Acute hypoxemic respiratory failure due to COVID 19 pneumonia Pt is on 4 L Oxygen by [place]. Continue to wean down oxygen as tolerated. Pt completed Dexamethasone and Remdesivir. 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 Continue working with PT/OT. Pt will most likely need SNF placement. Encephalopathy. 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 I will obtain a psych consult. I will start him on a lexapro 10mg daily. Pt will need to stay in the hospital for a total of 20 days before being accepted at any SNF/ rehab. BPH: On home meds DVT prophylaxis On SQ lovenox.
--- NOTE | 2021-04-28 11:06 | PCM.PN ---
- General Info Date of Service: 04/28/21 Admission Dx/Problem (Free Text): Pt is working a bit better with his incentive spirometer. He is able to do 700cc. His oxygen requirements are down to 2 L [place]. - Patient Data Vitals - Most Recent: Last Vital Signs Temp 97.7 F 04/28/21 08:20 Pulse 83 04/28/21 08:20 Resp 18 04/28/21 08:20 BP 115/68 04/28/21 08:20 Pulse Ox 92 L 04/28/21 08:20 Weight - Most Recent: 165 lb 1.6 oz I&O - Last 24 Hours: Intake & Output 04/27/21 04/28/21 04/28/21 22:59 06:59 14:59 Intake Total 800 Output Total 275 Balance 525 Med Orders - Current: Current Medications Albuterol/Ipratropium (Albuterol/Ipratropium 3.0-0.5 Mg/3 Ml Neb Soln) 3 ml NEB Q6HRRT [facility] Last Admin: 04/28/21 06:37 Dose: 3 ml Documented by: Artificial Tears (Carboxymethylcellulose Sodium 0.5% Ophth Soln 0.4 Ml Ud Box Of 30) 1 each EYEBOTH QID PRN PRN Reason: Dry Eyes Benzonatate (Benzonatate 100 Mg Cap) 100 mg PO TID PRN PRN Reason: Cough Last Admin: 04/21/21 16:42 Dose: 100 mg Documented by: Dexamethasone (Dexamethasone 4 Mg Tab) 6 mg PO DAILY [facility] Last Admin: 04/28/21 09:07 Dose: 6 mg Documented by: Enoxaparin Sodium (Enoxaparin 40 Mg/0.4 Ml Syringe) 40 mg SUBCUT DAILY [facility] Last Admin: 04/28/21 09:08 Dose: 40 mg Documented by: Famotidine (Famotidine 20 Mg Tab) 20 mg PO BEDTIME [facility] Last Admin: 04/27/21 20:01 Dose: 20 mg Documented by: Finasteride (Finasteride 5 Mg Tab) 5 mg PO DAILY [facility] Last Admin: 04/28/21 09:07 Dose: 5 mg Documented by: Pantoprazole Sodium (Pantoprazole 40 Mg Tab.Cr) 40 mg PO DAILY [facility] Last Admin: 04/28/21 09:07 Dose: 40 mg Documented by: Mineral Oil/Petrolatum,White [ Refresh P.M.] 3.5 Gm Ointment 1 each EYEBOTH BEDTIME PRN PRN Reason: Dry Eyes Zinc 50 Mg Tablet 1 each PO DAILY [facility] Last Admin: 04/27/21 11:52 Dose: Not Given Documented by: Terbinafine 250 Mg (Tab) 1 each PO Q24H [facility] Last Admin: 04/27/21 17:24 Dose: Not Given Documented by: Tamsulosin HCl (Tamsulosin 0.4 Mg Cap.Er) 0.4 mg PO WITHDINNER [facility] Last Admin: 04/27/21 17:24 Dose: 0.4 mg Documented by: Discontinued Medications Albuterol/Ipratropium (Albuterol/Ipratropium 3.0-0.5 Mg/3 Ml Neb Soln) 3 ml NEB ONETIME ONE Stop: 04/17/21 20:25 Last Admin: 04/17/21 20:35 Dose: 3 ml Documented by: Albuterol/Ipratropium (Albuterol/Ipratropium 3.0-0.5 Mg/3 Ml Neb Soln) 3 ml NEB Q4HRRT [facility] Last Admin: 04/18/21 10:47 Dose: Not Given Documented by: Dexamethasone (Dexamethasone 10 Mg/Ml Sdv) 10 mg IVPUSH ONETIME ONE Stop: 04/17/21 20:36 Last Admin: 04/17/21 20:42 Dose: 10 mg Documented by: Dexamethasone (Dexamethasone 4 Mg Tab) 6 mg PO ONETIME ONE Stop: 04/24/21 13:01 Last Admin: 04/24/21 12:53 Dose: 6 mg Documented by: Finasteride (Finasteride 5 Mg Tab) 5 mg PO ONETIME ONE Stop: 04/24/21 13:01 Last Admin: 04/24/21 12:52 Dose: 5 mg Documented by: Sodium Chloride (Normal Saline) 1,000 mls @ 999 mls/hr IV .Bolus ONE Stop: 04/17/21 21:24 Last Admin: 04/17/21 20:35 Dose: 999 mls/hr Documented by: Remdesivir 200 mg/ Sodium (Chloride) 250 mls @ 250 mls/hr IV ONETIME ONE Stop: 04/17/21 23:30 Last Admin: 04/18/21 00:32 Dose: 250 mls/hr Documented by: Remdesivir 200 mg/ Sodium (Chloride) 250 mls @ 250 mls/hr IV ONETIME ONE Stop: 04/22/21 15:05 Last Admin: 04/22/21 17:05 Dose: 250 mls/hr Documented by: Remdesivir 100 mg/ Sodium (Chloride) 100 mls @ 100 mls/hr IV Q24H [facility] Stop: 04/26/21 15:59 Last Admin: 04/26/21 16:34 Dose: 100 mls/hr Documented by: Sodium Chloride (Normal Saline) 500 mls @ 500 mls/hr IV .BOLUS [facility] Last Admin: 04/25/21 15:19 Dose: 500 mls/hr Documented by: Iopamidol (Iopamidol 755 Mg/Ml 500 Ml Multipack Bottle) 100 ml IVPUSH ONETIME STA Stop: 04/17/21 21:29 Last Admin: 04/17/21 21:28 Dose: 100 ml Documented by: Pantoprazole Sodium (Pantoprazole 40 Mg Tab.Cr) 40 mg PO ONETIME ONE Stop: 04/24/21 12:46 Last Admin: 04/24/21 12:52 Dose: 40 mg Documented by: Sodium Chloride (Sodium Chloride 0.9% 10 Ml Syringe) 10 ml FLUSH ASDIRECTED PRN PRN Reason: Keep Vein Open Last Admin: 04/17/21 20:35 Dose: 10 ml Documented by: Sodium Chloride (Sodium Chloride 0.9% 2.5 Ml Syringe) 2.5 ml FLUSH ASDIRECTED PRN PRN Reason: Keep Vein Open Last Admin: 04/17/21 20:35 Dose: 2.5 ml Documented by: Terbinafine HCl (Terbinafine 250 Mg Tab) 250 mg PO Q24H [facility] Last Admin: 04/18/21 15:35 Dose: Not Given Documented by: - Exam Physical Findings Comments:: General: Elderly male. Awake and alert. Eating breakfast. In no distress. CVS: S1S2 appreciated. RRR lungs: clear bilaterally. No rales or wheezes. Pa: soft, non tender. Bowel sounds are present ext: no clubbing, cyanosis or edema neuro: moves all extremities psych: Depressed mood. Flat affect - Patient Data Result Diagrams: 04/26/21 04:50 04/26/21 04:50 Sepsis Event Note - Evaluation Sepsis Screening Result: No Definite Risk - Focused Exam Vital Signs: Vital Signs Temp Pulse Resp BP Pulse Ox 04/28/21 08:20 97.7 F 83 18 115/68 92 L 04/28/21 03:14 98.1 F 68 18 113/66 92 L 04/28/21 00:00 98.2 F 74 18 110/72 93 L - Problem List & Annotations (1) Acute respiratory failure due to COVID-19 SNOMED Code(s): 123149915 Code(s): U07.1 - COVID-19; J96.00 - ACUTE RESPIRATORY FAILURE, UNSP W HYPOXIA OR HYPERCAPNIA Status: Acute Current Visit: Yes (2) Pneumonia due to COVID-19 virus SNOMED Code(s): 637988397344275105 Code(s): U07.1 - COVID-19; J12.82 - PNEUMONIA DUE TO CORONAVIRUS DISEASE 2019 Status: Acute Current Visit: Yes (3) BPH (benign prostatic hyperplasia) SNOMED Code(s): 015900386 Code(s): N40.0 - BENIGN PROSTATIC HYPERPLASIA WITHOUT LOWER URINRY TRACT SYMP Status: Acute Current Visit: Yes (4) Asbestos-induced pleural plaque SNOMED Code(s): 813990575 Code(s): J92.0 - PLEURAL PLAQUE WITH PRESENCE OF ASBESTOS Status: Acute Current Visit: Yes Annotation/Comment:: will need supportive measures (5) Generalized muscle weakness SNOMED Code(s): 65651336, 29676815 Code(s): M62.81 - MUSCLE WEAKNESS (GENERALIZED) Status: Acute Current Visit: Yes - Problem List Review Problem List Initiated/Reviewed/Updated: Yes - Assessment Assessment:: Acute hypoxemic respiratory failure due to COVID 19 pneumonia. Completed a course of Dexamethasone and Remdesivir. Pt is on 2-3L Oxygen by [place]. Continue to wean down oxygen as tolerated. 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 Continue working with PT/OT. Pt will most likely need SNF placement. Encephalopathy. 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 I will obtain a psych consult. I will start him on a lexapro 10mg daily. Pt will need to stay in the hospital for a total of 20 days before being accepted at any SNF/ rehab. BPH: On home meds DVT prophylaxis On SQ lovenox.
[2021-04-28] MEDS: Terbinafine 250 MG Tab PO SCH (17:11)
[2021-04-28] MEDS: Tamsulosin 0.4 MG Cap.ER PO SCH (17:40)
[2021-04-28] MEDS: Famotidine 20 MG Tab PO SCH (21:56)
[2021-04-29] MEDS: Albuterol/Ipratropium 3.0-0.5 MG/3 ML Neb Soln NEB SCH ×4 (00:05→17:58)
[2021-04-29] MEDS: Dexamethasone 4 MG Tab PO SCH (09:12)
[2021-04-29] MEDS: Pantoprazole 40 MG Tab.CR PO SCH (09:16)
[2021-04-29] MEDS: Finasteride 5 MG Tab PO SCH (09:16)
[2021-04-29] MEDS: Enoxaparin 40 MG/0.4 ML Syringe SUBCUT SCH (09:17)
--- NOTE | 2021-04-29 11:12 | PCM.PN ---
- General Info Date of Service: 04/29/21 Admission Dx/Problem (Free Text): Pt is very impulsive. Gets up and just walks off to the bathroom without assistance. He has a fast but unsteady gait. He is able to do 500cc on the incentive spirometer multiple times. He does not follow instructions well. - Patient Data Vitals - Most Recent: Last Vital Signs Temp 96.2 F L 04/29/21 08:00 Pulse 64 04/29/21 08:00 Resp 18 04/29/21 08:00 BP 112/69 04/29/21 08:00 Pulse Ox 94 L 04/29/21 08:00 Weight - Most Recent: 165 lb 1.6 oz I&O - Last 24 Hours: Intake & Output 04/28/21 04/29/21 04/29/21 22:59 06:59 14:59 Intake Total 700 800 Output Total 200 Balance 700 600 Med Orders - Current: Current Medications Albuterol/Ipratropium (Albuterol/Ipratropium 3.0-0.5 Mg/3 Ml Neb Soln) 3 ml NEB Q6HRRT [facility] Last Admin: 04/29/21 06:38 Dose: 3 ml Documented by: Artificial Tears (Carboxymethylcellulose Sodium 0.5% Ophth Soln 0.4 Ml Ud Box Of 30) 1 each EYEBOTH QID PRN PRN Reason: Dry Eyes Benzonatate (Benzonatate 100 Mg Cap) 100 mg PO TID PRN PRN Reason: Cough Last Admin: 04/21/21 16:42 Dose: 100 mg Documented by: Dexamethasone (Dexamethasone 4 Mg Tab) 6 mg PO DAILY [facility] Last Admin: 04/29/21 09:12 Dose: 6 mg Documented by: Enoxaparin Sodium (Enoxaparin 40 Mg/0.4 Ml Syringe) 40 mg SUBCUT DAILY [facility] Last Admin: 04/29/21 09:17 Dose: 40 mg Documented by: Famotidine (Famotidine 20 Mg Tab) 20 mg PO BEDTIME [facility] Last Admin: 04/28/21 21:56 Dose: 20 mg Documented by: Finasteride (Finasteride 5 Mg Tab) 5 mg PO DAILY [facility] Last Admin: 04/29/21 09:16 Dose: 5 mg Documented by: Pantoprazole Sodium (Pantoprazole 40 Mg Tab.Cr) 40 mg PO DAILY [facility] Last Admin: 04/29/21 09:16 Dose: 40 mg Documented by: Mineral Oil/Petrolatum,White [ Refresh P.M.] 3.5 Gm Ointment 1 each EYEBOTH BEDTIME PRN PRN Reason: Dry Eyes Zinc 50 Mg Tablet 1 each PO DAILY [facility] Last Admin: 04/29/21 09:34 Dose: Not Given Documented by: Terbinafine 250 Mg (Tab) 1 each PO Q24H [facility] Last Admin: 04/28/21 17:11 Dose: Not Given Documented by: Tamsulosin HCl (Tamsulosin 0.4 Mg Cap.Er) 0.4 mg PO WITHDINNER [facility] Last Admin: 04/28/21 17:40 Dose: 0.4 mg Documented by: Discontinued Medications Albuterol/Ipratropium (Albuterol/Ipratropium 3.0-0.5 Mg/3 Ml Neb Soln) 3 ml NEB ONETIME ONE Stop: 04/17/21 20:25 Last Admin: 04/17/21 20:35 Dose: 3 ml Documented by: Albuterol/Ipratropium (Albuterol/Ipratropium 3.0-0.5 Mg/3 Ml Neb Soln) 3 ml NEB Q4HRRT [facility] Last Admin: 04/18/21 10:47 Dose: Not Given Documented by: Dexamethasone (Dexamethasone 10 Mg/Ml Sdv) 10 mg IVPUSH ONETIME ONE Stop: 04/17/21 20:36 Last Admin: 04/17/21 20:42 Dose: 10 mg Documented by: Dexamethasone (Dexamethasone 4 Mg Tab) 6 mg PO ONETIME ONE Stop: 04/24/21 13:01 Last Admin: 04/24/21 12:53 Dose: 6 mg Documented by: Finasteride (Finasteride 5 Mg Tab) 5 mg PO ONETIME ONE Stop: 04/24/21 13:01 Last Admin: 04/24/21 12:52 Dose: 5 mg Documented by: Sodium Chloride (Normal Saline) 1,000 mls @ 999 mls/hr IV .Bolus ONE Stop: 04/17/21 21:24 Last Admin: 04/17/21 20:35 Dose: 999 mls/hr Documented by: Remdesivir 200 mg/ Sodium (Chloride) 250 mls @ 250 mls/hr IV ONETIME ONE Stop: 04/17/21 23:30 Last Admin: 04/18/21 00:32 Dose: 250 mls/hr Documented by: Remdesivir 200 mg/ Sodium (Chloride) 250 mls @ 250 mls/hr IV ONETIME ONE Stop: 04/22/21 15:05 Last Admin: 04/22/21 17:05 Dose: 250 mls/hr Documented by: Remdesivir 100 mg/ Sodium (Chloride) 100 mls @ 100 mls/hr IV Q24H [facility] Stop: 04/26/21 15:59 Last Admin: 04/26/21 16:34 Dose: 100 mls/hr Documented by: Sodium Chloride (Normal Saline) 500 mls @ 500 mls/hr IV .BOLUS [facility] Last Admin: 04/25/21 15:19 Dose: 500 mls/hr Documented by: Iopamidol (Iopamidol 755 Mg/Ml 500 Ml Multipack Bottle) 100 ml IVPUSH ONETIME STA Stop: 04/17/21 21:29 Last Admin: 04/17/21 21:28 Dose: 100 ml Documented by: Pantoprazole Sodium (Pantoprazole 40 Mg Tab.Cr) 40 mg PO ONETIME ONE Stop: 04/24/21 12:46 Last Admin: 04/24/21 12:52 Dose: 40 mg Documented by: Sodium Chloride (Sodium Chloride 0.9% 10 Ml Syringe) 10 ml FLUSH ASDIRECTED PRN PRN Reason: Keep Vein Open Last Admin: 04/17/21 20:35 Dose: 10 ml Documented by: Sodium Chloride (Sodium Chloride 0.9% 2.5 Ml Syringe) 2.5 ml FLUSH ASDIRECTED PRN PRN Reason: Keep Vein Open Last Admin: 04/17/21 20:35 Dose: 2.5 ml Documented by: Terbinafine HCl (Terbinafine 250 Mg Tab) 250 mg PO Q24H [facility] Last Admin: 04/18/21 15:35 Dose: Not Given Documented by: - Exam Physical Findings Comments:: eneral: Elderly male in no distress. Eating breakfast. In no distress. More awake and alert this morning than yesterday. CVS: S1S2 appreciated. RRR lungs: clear bilaterally. No rales or wheezes. Pa: soft, non tender. Bowel sounds are present ext: no clubbing, cyanosis or edema neuro: moves all extremities psych: Depressed mood. Flat affect - Patient Data Result Diagrams: 04/26/21 04:50 04/26/21 04:50 Sepsis Event Note - Evaluation Sepsis Screening Result: No Definite Risk - Focused Exam Vital Signs: Vital Signs Temp Pulse Resp BP Pulse Ox 04/29/21 08:00 96.2 F L 64 18 112/69 94 L 04/29/21 04:38 98.1 F 64 16 113/71 93 L - Problem List & Annotations (1) Acute respiratory failure due to COVID-19 SNOMED Code(s): 148560724 Code(s): U07.1 - COVID-19; J96.00 - ACUTE RESPIRATORY FAILURE, UNSP W HYPOXIA OR HYPERCAPNIA Status: Acute Current Visit: Yes (2) Pneumonia due to COVID-19 virus SNOMED Code(s): 831066732955473878 Code(s): U07.1 - COVID-19; J12.82 - PNEUMONIA DUE TO CORONAVIRUS DISEASE 2018 Status: Acute Current Visit: Yes (3) BPH (benign prostatic hyperplasia) SNOMED Code(s): 151645547 Code(s): N40.0 - BENIGN PROSTATIC HYPERPLASIA WITHOUT LOWER URINRY TRACT SYMP Status: Acute Current Visit: Yes (4) Asbestos-induced pleural plaque SNOMED Code(s): 741832322 Code(s): J92.0 - PLEURAL PLAQUE WITH PRESENCE OF ASBESTOS Status: Acute Current Visit: Yes Annotation/Comment:: will need supportive measures (5) Generalized muscle weakness SNOMED Code(s): 74860621, 02194507 Code(s): M62.81 - MUSCLE WEAKNESS (GENERALIZED) Status: Acute Current Visit: Yes - Problem List Review Problem List Initiated/Reviewed/Updated: Yes - Assessment Assessment:: Acute hypoxemic respiratory failure due to COVID 19 pneumonia. Completed a course of Dexamethasone and Remdesivir. Pt is on 2-3L Oxygen by [place]. Continue to wean down oxygen as tolerated. 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 Continue working with PT/OT. Pt will most likely need SNF placement. Pt is very impulsive and a high fall risk. Staff is using bed alarms. Gait instability Continue to work with PT/OT SNF eval. Encephalopathy. much improved. On lexapro 10 mg daily. BPH: On home meds DVT prophylaxis On SQ lovenox.
[2021-04-29 12:01] LABS: BLOOD UREA NITROGEN,BUN 30 mg/dL (7.0-18.0); CARBON DIOXIDE,CO2 27.5 mmol/L (21.0-32.0); CHLORIDE,CL 106 mmol/L (98-107); GLUCOSE RANDOM 140 mg/dL (74-106); POTASSIUM,K 3.9 mmol/L (3.5-5.1); SODIUM,NA 140 mmol/L (136-148)
[2021-04-29] MEDS: Tamsulosin 0.4 MG Cap.ER PO SCH (17:07)
[2021-04-29] MEDS: Famotidine 20 MG Tab PO SCH (21:05)
[2021-04-30] MEDS: Albuterol/Ipratropium 3.0-0.5 MG/3 ML Neb Soln NEB SCH ×2 (00:14→06:19)
[2021-04-30] MEDS: Enoxaparin 40 MG/0.4 ML Syringe SUBCUT SCH (08:53)
[2021-04-30] MEDS: Finasteride 5 MG Tab PO SCH (08:53)
[2021-04-30] MEDS: Pantoprazole 40 MG Tab.CR PO SCH (08:53)
[2021-04-30] MEDS ORDERED: Albuterol/Ipratropium 3.0-0.5 MG/3 ML Neb Soln NEB PRN (12:00)
--- NOTE | 2021-04-30 14:36 | PCM.PN ---
- General Info Date of Service: 04/30/21 - Review of Systems Systems Review Comment:: no new complaints. - Patient Data Vitals - Most Recent: Last Vital Signs Temp 36.2 C 04/30/21 08:50 Pulse 72 04/30/21 08:50 Resp 20 04/30/21 08:50 BP 90/57 L 04/30/21 08:50 Pulse Ox 92 L 04/30/21 08:50 Weight - Most Recent: 74.888 kg I&O - Last 24 Hours: Intake & Output 04/29/21 04/30/21 04/30/21 22:59 06:59 14:59 Intake Total 850 450 Output Total 750 400 Balance 100 50 Med Orders - Current: Current Medications Albuterol/Ipratropium (Albuterol/Ipratropium 3.0-0.5 Mg/3 Ml Neb Soln) 3 ml NEB Q6HRRT PRN PRN Reason: Dyspnea Artificial Tears (Carboxymethylcellulose Sodium 0.5% Ophth Soln 0.4 Ml Ud Box Of 30) 1 each EYEBOTH QID PRN PRN Reason: Dry Eyes Benzonatate (Benzonatate 100 Mg Cap) 100 mg PO TID PRN PRN Reason: Cough Last Admin: 04/21/21 16:42 Dose: 100 mg Documented by: Enoxaparin Sodium (Enoxaparin 40 Mg/0.4 Ml Syringe) 40 mg SUBCUT DAILY [facility] Last Admin: 04/30/21 08:53 Dose: 40 mg Documented by: Famotidine (Famotidine 20 Mg Tab) 20 mg PO BEDTIME [facility] Last Admin: 04/29/21 21:05 Dose: 20 mg Documented by: Finasteride (Finasteride 5 Mg Tab) 5 mg PO DAILY [facility] Last Admin: 04/30/21 08:53 Dose: 5 mg Documented by: Pantoprazole Sodium (Pantoprazole 40 Mg Tab.Cr) 40 mg PO DAILY [facility] Last Admin: 04/30/21 08:53 Dose: 40 mg Documented by: Mineral Oil/Petrolatum,White [ Refresh P.M.] 3.5 Gm Ointment 1 each EYEBOTH BEDTIME PRN PRN Reason: Dry Eyes Zinc 50 Mg Tablet 1 each PO DAILY [facility] Last Admin: 04/30/21 10:15 Dose: Not Given Documented by: Terbinafine 250 Mg (Tab) 1 each PO Q24H [facility] Last Admin: 04/28/21 17:11 Dose: Not Given Documented by: Tamsulosin HCl (Tamsulosin 0.4 Mg Cap.Er) 0.4 mg PO WITHDINNER [facility] Last Admin: 04/29/21 17:07 Dose: 0.4 mg Documented by: Discontinued Medications Albuterol/Ipratropium (Albuterol/Ipratropium 3.0-0.5 Mg/3 Ml Neb Soln) 3 ml NEB ONETIME ONE Stop: 04/17/21 20:25 Last Admin: 04/17/21 20:35 Dose: 3 ml Documented by: Albuterol/Ipratropium (Albuterol/Ipratropium 3.0-0.5 Mg/3 Ml Neb Soln) 3 ml NEB Q4HRRT [facility] Last Admin: 04/18/21 10:47 Dose: Not Given Documented by: Albuterol/Ipratropium (Albuterol/Ipratropium 3.0-0.5 Mg/3 Ml Neb Soln) 3 ml NEB Q6HRRT [facility] Last Admin: 04/30/21 06:19 Dose: Not Given Documented by: Dexamethasone (Dexamethasone 10 Mg/Ml Sdv) 10 mg IVPUSH ONETIME ONE Stop: 04/17/21 20:36 Last Admin: 04/17/21 20:42 Dose: 10 mg Documented by: Dexamethasone (Dexamethasone 4 Mg Tab) 6 mg PO DAILY [facility] Last Admin: 04/29/21 09:12 Dose: 6 mg Documented by: Dexamethasone (Dexamethasone 4 Mg Tab) 6 mg PO ONETIME ONE Stop: 04/24/21 13:01 Last Admin: 04/24/21 12:53 Dose: 6 mg Documented by: Finasteride (Finasteride 5 Mg Tab) 5 mg PO ONETIME ONE Stop: 04/24/21 13:01 Last Admin: 04/24/21 12:52 Dose: 5 mg Documented by: Sodium Chloride (Normal Saline) 1,000 mls @ 999 mls/hr IV .Bolus ONE Stop: 04/17/21 21:24 Last Admin: 04/17/21 20:35 Dose: 999 mls/hr Documented by: Remdesivir 200 mg/ Sodium (Chloride) 250 mls @ 250 mls/hr IV ONETIME ONE Stop: 04/17/21 23:30 Last Admin: 04/18/21 00:32 Dose: 250 mls/hr Documented by: Remdesivir 200 mg/ Sodium (Chloride) 250 mls @ 250 mls/hr IV ONETIME ONE Stop: 04/22/21 15:05 Last Admin: 04/22/21 17:05 Dose: 250 mls/hr Documented by: Remdesivir 100 mg/ Sodium (Chloride) 100 mls @ 100 mls/hr IV Q24H [facility] Stop: 04/26/21 15:59 Last Admin: 04/26/21 16:34 Dose: 100 mls/hr Documented by: Sodium Chloride (Normal Saline) 500 mls @ 500 mls/hr IV .BOLUS [facility] Last Admin: 04/25/21 15:19 Dose: 500 mls/hr Documented by: Iopamidol (Iopamidol 755 Mg/Ml 500 Ml Multipack Bottle) 100 ml IVPUSH ONETIME STA Stop: 04/17/21 21:29 Last Admin: 04/17/21 21:28 Dose: 100 ml Documented by: Pantoprazole Sodium (Pantoprazole 40 Mg Tab.Cr) 40 mg PO ONETIME ONE Stop: 04/24/21 12:46 Last Admin: 04/24/21 12:52 Dose: 40 mg Documented by: Sodium Chloride (Sodium Chloride 0.9% 10 Ml Syringe) 10 ml FLUSH ASDIRECTED PRN PRN Reason: Keep Vein Open Last Admin: 04/17/21 20:35 Dose: 10 ml Documented by: Sodium Chloride (Sodium Chloride 0.9% 2.5 Ml Syringe) 2.5 ml FLUSH ASDIRECTED PRN PRN Reason: Keep Vein Open Last Admin: 04/17/21 20:35 Dose: 2.5 ml Documented by: Terbinafine HCl (Terbinafine 250 Mg Tab) 250 mg PO Q24H [facility] Last Admin: 04/18/21 15:35 Dose: Not Given Documented by: - Exam General: Alert, Cooperative Neck: Supple Lungs: Clear to Auscultation, Normal Respiratory Effort Cardiovascular: Regular Rate, Regular Rhythm GI/Abdominal Exam: Soft, Non-Tender, No Distention Extremities: Non-Tender, No Pedal Edema Skin: Warm, Dry, Intact Neurological: No New Focal Deficit - Patient Data Result Diagrams: 04/26/21 04:50 04/29/21 11:35 Sepsis Event Note - Evaluation Sepsis Screening Result: No Definite Risk - Focused Exam Vital Signs: Vital Signs Temp Pulse Resp BP Pulse Ox 04/30/21 08:50 36.2 C 72 20 90/57 L 92 L 04/30/21 08:00 35.7 C L 68 20 105/65 91 L 04/30/21 04:00 36.2 C 71 16 98/62 90 L - Problem List & Annotations (1) Respiratory failure with hypoxia SNOMED Code(s): 92939613048166226 Code(s): J96.91 - RESPIRATORY FAILURE, UNSPECIFIED WITH HYPOXIA Status: Acute Current Visit: Yes (2) COVID-19 SNOMED Code(s): 380642584 Code(s): U07.1 - COVID-19 Status: Acute Current Visit: Yes - Problem List Review Problem List Initiated/Reviewed/Updated: Yes - Assessment Assessment:: Acute hypoxemic respiratory failure due to COVID 19 pneumonia. Completed a course of Dexamethasone and Remdesivir. Pt is on 1.5 L Oxygen by [place]. Continue to wean down oxygen as tolerated. 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 Continue working with PT/OT. Pt will most likely need SNF placement. Pt is very impulsive and a high fall risk. Staff is using bed alarms. Encephalopathy. much improved. On lexapro 10 mg daily. BPH: On home meds DVT prophylaxis On SQ lovenox.
[2021-04-30] MEDS: Tamsulosin 0.4 MG Cap.ER PO SCH (17:29)
[2021-04-30] MEDS: Terbinafine 250 MG Tab PO SCH (18:28)
[2021-04-30] MEDS: Famotidine 20 MG Tab PO SCH (20:20)
[2021-05-01] MEDS: Finasteride 5 MG Tab PO SCH (09:13)
[2021-05-01] MEDS: Enoxaparin 40 MG/0.4 ML Syringe SUBCUT SCH (09:13)
[2021-05-01] MEDS: Pantoprazole 40 MG Tab.CR PO SCH (09:13)
--- NOTE | 2021-05-01 14:25 | PCM.PN ---
- General Info Date of Service: 05/01/21 - Patient Data Vitals - Most Recent: Last Vital Signs Temp 36.7 C 05/01/21 12:00 Pulse 66 05/01/21 12:00 Resp 20 05/01/21 12:00 BP 123/75 05/01/21 12:00 Pulse Ox 93 L 05/01/21 12:00 Weight - Most Recent: 74.888 kg I&O - Last 24 Hours: Intake & Output 04/30/21 05/01/21 05/01/21 22:59 06:59 14:59 Intake Total 948 700 Output Total 300 475 Balance 648 225 Med Orders - Current: Current Medications Albuterol/Ipratropium (Albuterol/Ipratropium 3.0-0.5 Mg/3 Ml Neb Soln) 3 ml NEB Q6HRRT PRN PRN Reason: Dyspnea Artificial Tears (Carboxymethylcellulose Sodium 0.5% Ophth Soln 0.4 Ml Ud Box Of 30) 1 each EYEBOTH QID PRN PRN Reason: Dry Eyes Benzonatate (Benzonatate 100 Mg Cap) 100 mg PO TID PRN PRN Reason: Cough Last Admin: 04/21/21 16:42 Dose: 100 mg Documented by: Enoxaparin Sodium (Enoxaparin 40 Mg/0.4 Ml Syringe) 40 mg SUBCUT DAILY [facility] Last Admin: 05/01/21 09:13 Dose: 40 mg Documented by: Famotidine (Famotidine 20 Mg Tab) 20 mg PO BEDTIME [facility] Last Admin: 04/30/21 20:20 Dose: 20 mg Documented by: Finasteride (Finasteride 5 Mg Tab) 5 mg PO DAILY [facility] Last Admin: 05/01/21 09:13 Dose: 5 mg Documented by: Pantoprazole Sodium (Pantoprazole 40 Mg Tab.Cr) 40 mg PO DAILY [facility] Last Admin: 05/01/21 09:13 Dose: 40 mg Documented by: Mineral Oil/Petrolatum,White [ Refresh P.M.] 3.5 Gm Ointment 1 each EYEBOTH BEDTIME PRN PRN Reason: Dry Eyes Zinc 50 Mg Tablet 1 each PO DAILY [facility] Last Admin: 05/01/21 11:57 Dose: Not Given Documented by: Terbinafine 250 Mg (Tab) 1 each PO Q24H [facility] Last Admin: 04/30/21 18:28 Dose: Not Given Documented by: Tamsulosin HCl (Tamsulosin 0.4 Mg Cap.Er) 0.4 mg PO WITHDINNER [facility] Last Admin: 04/30/21 17:29 Dose: 0.4 mg Documented by: Discontinued Medications Albuterol/Ipratropium (Albuterol/Ipratropium 3.0-0.5 Mg/3 Ml Neb Soln) 3 ml NEB ONETIME ONE Stop: 04/17/21 20:25 Last Admin: 04/17/21 20:35 Dose: 3 ml Documented by: Albuterol/Ipratropium (Albuterol/Ipratropium 3.0-0.5 Mg/3 Ml Neb Soln) 3 ml NEB Q4HRRT [facility] Last Admin: 04/18/21 10:47 Dose: Not Given Documented by: Albuterol/Ipratropium (Albuterol/Ipratropium 3.0-0.5 Mg/3 Ml Neb Soln) 3 ml NEB Q6HRRT [facility] Last Admin: 04/30/21 06:19 Dose: Not Given Documented by: Dexamethasone (Dexamethasone 10 Mg/Ml Sdv) 10 mg IVPUSH ONETIME ONE Stop: 04/17/21 20:36 Last Admin: 04/17/21 20:42 Dose: 10 mg Documented by: Dexamethasone (Dexamethasone 4 Mg Tab) 6 mg PO DAILY [facility] Last Admin: 04/29/21 09:12 Dose: 6 mg Documented by: Dexamethasone (Dexamethasone 4 Mg Tab) 6 mg PO ONETIME ONE Stop: 04/24/21 13:01 Last Admin: 04/24/21 12:53 Dose: 6 mg Documented by: Finasteride (Finasteride 5 Mg Tab) 5 mg PO ONETIME ONE Stop: 04/24/21 13:01 Last Admin: 04/24/21 12:52 Dose: 5 mg Documented by: Sodium Chloride (Normal Saline) 1,000 mls @ 999 mls/hr IV .Bolus ONE Stop: 04/17/21 21:24 Last Admin: 04/17/21 20:35 Dose: 999 mls/hr Documented by: Remdesivir 200 mg/ Sodium (Chloride) 250 mls @ 250 mls/hr IV ONETIME ONE Stop: 04/17/21 23:30 Last Admin: 04/18/21 00:32 Dose: 250 mls/hr Documented by: Remdesivir 200 mg/ Sodium (Chloride) 250 mls @ 250 mls/hr IV ONETIME ONE Stop: 04/22/21 15:05 Last Admin: 04/22/21 17:05 Dose: 250 mls/hr Documented by: Remdesivir 100 mg/ Sodium (Chloride) 100 mls @ 100 mls/hr IV Q24H [facility] Stop: 04/26/21 15:59 Last Admin: 04/26/21 16:34 Dose: 100 mls/hr Documented by: Sodium Chloride (Normal Saline) 500 mls @ 500 mls/hr IV .BOLUS [facility] Last Admin: 04/25/21 15:19 Dose: 500 mls/hr Documented by: Iopamidol (Iopamidol 755 Mg/Ml 500 Ml Multipack Bottle) 100 ml IVPUSH ONETIME STA Stop: 04/17/21 21:29 Last Admin: 04/17/21 21:28 Dose: 100 ml Documented by: Pantoprazole Sodium (Pantoprazole 40 Mg Tab.Cr) 40 mg PO ONETIME ONE Stop: 04/24/21 12:46 Last Admin: 04/24/21 12:52 Dose: 40 mg Documented by: Sodium Chloride (Sodium Chloride 0.9% 10 Ml Syringe) 10 ml FLUSH ASDIRECTED PRN PRN Reason: Keep Vein Open Last Admin: 04/17/21 20:35 Dose: 10 ml Documented by: Sodium Chloride (Sodium Chloride 0.9% 2.5 Ml Syringe) 2.5 ml FLUSH ASDIRECTED PRN PRN Reason: Keep Vein Open Last Admin: 04/17/21 20:35 Dose: 2.5 ml Documented by: Terbinafine HCl (Terbinafine 250 Mg Tab) 250 mg PO Q24H [facility] Last Admin: 04/18/21 15:35 Dose: Not Given Documented by: - Exam General: Alert, Oriented Neck: Supple Lungs: Clear to Auscultation, Normal Respiratory Effort Cardiovascular: Regular Rate, Regular Rhythm GI/Abdominal Exam: Soft, Non-Tender, No Distention Extremities: Non-Tender, No Pedal Edema Skin: Warm, Dry, Intact Neurological: No New Focal Deficit - Patient Data Result Diagrams: 04/26/21 04:50 04/29/21 11:35 Sepsis Event Note - Evaluation Sepsis Screening Result: No Definite Risk - Focused Exam Vital Signs: Vital Signs Temp Temp Pulse Resp BP Pulse Ox 05/01/21 12:00 36.7 C 66 20 123/75 93 L 05/01/21 08:31 36.7 C 71 20 101/65 91 L 05/01/21 03:40 36.7 C 75 18 91/54 L 92 L - Problem List & Annotations (1) Respiratory failure with hypoxia SNOMED Code(s): 28966861367122956 Code(s): J96.91 - RESPIRATORY FAILURE, UNSPECIFIED WITH HYPOXIA Status: Acute Current Visit: Yes (2) COVID-19 SNOMED Code(s): 965343813 Code(s): U07.1 - COVID-19 Status: Acute Current Visit: Yes - Problem List Review Problem List Initiated/Reviewed/Updated: Yes - Assessment Assessment:: Acute hypoxemic respiratory failure due to COVID 19 pneumonia. Completed a course of Dexamethasone and Remdesivir. Pt is on 1 L Oxygen by [place]. Continue to wean down oxygen as tolerated. 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 strength is improving, may be able to be discharge home soon Encephalopathy. much improved. On lexapro 10 mg daily. BPH: On home meds DVT prophylaxis On SQ lovenox.
[2021-05-01] MEDS: Terbinafine 250 MG Tab PO SCH (18:31)
[2021-05-01] MEDS: Tamsulosin 0.4 MG Cap.ER PO SCH (18:31)
[2021-05-01] MEDS: Famotidine 20 MG Tab PO SCH (20:43)
[2021-05-02] MEDS: Enoxaparin 40 MG/0.4 ML Syringe SUBCUT SCH (09:41)
[2021-05-02] MEDS: Finasteride 5 MG Tab PO SCH (09:41)
[2021-05-02] MEDS: Pantoprazole 40 MG Tab.CR PO SCH (09:41)
--- NOTE | 2021-05-02 12:44 | PCM.PN ---
- General Info Date of Service: 05/02/21 - Review of Systems Systems Review Comment:: feeling better, strength is improving, no shortness of breath - Patient Data Vitals - Most Recent: Last Vital Signs Temp 36.3 C 05/02/21 08:00 Pulse 68 05/02/21 08:00 Resp 16 05/02/21 08:00 BP 105/61 05/02/21 08:00 Pulse Ox 90 L 05/02/21 08:00 Weight - Most Recent: 74.888 kg I&O - Last 24 Hours: Intake & Output 05/01/21 05/02/21 05/02/21 22:59 06:59 14:59 Intake Total 480 400 Output Total 400 Balance 80 400 Med Orders - Current: Current Medications Albuterol/Ipratropium (Albuterol/Ipratropium 3.0-0.5 Mg/3 Ml Neb Soln) 3 ml NEB Q6HRRT PRN PRN Reason: Dyspnea Artificial Tears (Carboxymethylcellulose Sodium 0.5% Ophth Soln 0.4 Ml Ud Box Of 30) 1 each EYEBOTH QID PRN PRN Reason: Dry Eyes Benzonatate (Benzonatate 100 Mg Cap) 100 mg PO TID PRN PRN Reason: Cough Last Admin: 04/21/21 16:42 Dose: 100 mg Documented by: Enoxaparin Sodium (Enoxaparin 40 Mg/0.4 Ml Syringe) 40 mg SUBCUT DAILY [facility] Last Admin: 05/02/21 09:41 Dose: 40 mg Documented by: Famotidine (Famotidine 20 Mg Tab) 20 mg PO BEDTIME [facility] Last Admin: 05/01/21 20:43 Dose: 20 mg Documented by: Finasteride (Finasteride 5 Mg Tab) 5 mg PO DAILY [facility] Last Admin: 05/02/21 09:41 Dose: 5 mg Documented by: Pantoprazole Sodium (Pantoprazole 40 Mg Tab.Cr) 40 mg PO DAILY [facility] Last Admin: 05/02/21 09:41 Dose: 40 mg Documented by: Mineral Oil/Petrolatum,White [ Refresh P.M.] 3.5 Gm Ointment 1 each EYEBOTH BEDTIME PRN PRN Reason: Dry Eyes Zinc 50 Mg Tablet 1 each PO DAILY [facility] Last Admin: 05/02/21 11:08 Dose: Not Given Documented by: Terbinafine 250 Mg (Tab) 1 each PO Q24H [facility] Last Admin: 05/01/21 18:31 Dose: Not Given Documented by: Tamsulosin HCl (Tamsulosin 0.4 Mg Cap.Er) 0.4 mg PO WITHDINNER [facility] Last Admin: 05/01/21 18:31 Dose: Not Given Documented by: Discontinued Medications Albuterol/Ipratropium (Albuterol/Ipratropium 3.0-0.5 Mg/3 Ml Neb Soln) 3 ml NEB ONETIME ONE Stop: 04/17/21 20:25 Last Admin: 04/17/21 20:35 Dose: 3 ml Documented by: Albuterol/Ipratropium (Albuterol/Ipratropium 3.0-0.5 Mg/3 Ml Neb Soln) 3 ml NEB Q4HRRT [facility] Last Admin: 04/18/21 10:47 Dose: Not Given Documented by: Albuterol/Ipratropium (Albuterol/Ipratropium 3.0-0.5 Mg/3 Ml Neb Soln) 3 ml NEB Q6HRRT [facility] Last Admin: 04/30/21 06:19 Dose: Not Given Documented by: Dexamethasone (Dexamethasone 10 Mg/Ml Sdv) 10 mg IVPUSH ONETIME ONE Stop: 04/17/21 20:36 Last Admin: 04/17/21 20:42 Dose: 10 mg Documented by: Dexamethasone (Dexamethasone 4 Mg Tab) 6 mg PO DAILY [facility] Last Admin: 04/29/21 09:12 Dose: 6 mg Documented by: Dexamethasone (Dexamethasone 4 Mg Tab) 6 mg PO ONETIME ONE Stop: 04/24/21 13:01 Last Admin: 04/24/21 12:53 Dose: 6 mg Documented by: Finasteride (Finasteride 5 Mg Tab) 5 mg PO ONETIME ONE Stop: 04/24/21 13:01 Last Admin: 04/24/21 12:52 Dose: 5 mg Documented by: Sodium Chloride (Normal Saline) 1,000 mls @ 999 mls/hr IV .Bolus ONE Stop: 04/17/21 21:24 Last Admin: 04/17/21 20:35 Dose: 999 mls/hr Documented by: Remdesivir 200 mg/ Sodium (Chloride) 250 mls @ 250 mls/hr IV ONETIME ONE Stop: 04/17/21 23:30 Last Admin: 04/18/21 00:32 Dose: 250 mls/hr Documented by: Remdesivir 200 mg/ Sodium (Chloride) 250 mls @ 250 mls/hr IV ONETIME ONE Stop: 04/22/21 15:05 Last Admin: 04/22/21 17:05 Dose: 250 mls/hr Documented by: Remdesivir 100 mg/ Sodium (Chloride) 100 mls @ 100 mls/hr IV Q24H [facility] Stop: 04/26/21 15:59 Last Admin: 04/26/21 16:34 Dose: 100 mls/hr Documented by: Sodium Chloride (Normal Saline) 500 mls @ 500 mls/hr IV .BOLUS [facility] Last Admin: 04/25/21 15:19 Dose: 500 mls/hr Documented by: Iopamidol (Iopamidol 755 Mg/Ml 500 Ml Multipack Bottle) 100 ml IVPUSH ONETIME STA Stop: 04/17/21 21:29 Last Admin: 04/17/21 21:28 Dose: 100 ml Documented by: Pantoprazole Sodium (Pantoprazole 40 Mg Tab.Cr) 40 mg PO ONETIME ONE Stop: 04/24/21 12:46 Last Admin: 04/24/21 12:52 Dose: 40 mg Documented by: Sodium Chloride (Sodium Chloride 0.9% 10 Ml Syringe) 10 ml FLUSH ASDIRECTED PRN PRN Reason: Keep Vein Open Last Admin: 04/17/21 20:35 Dose: 10 ml Documented by: Sodium Chloride (Sodium Chloride 0.9% 2.5 Ml Syringe) 2.5 ml FLUSH ASDIRECTED PRN PRN Reason: Keep Vein Open Last Admin: 04/17/21 20:35 Dose: 2.5 ml Documented by: Terbinafine HCl (Terbinafine 250 Mg Tab) 250 mg PO Q24H [facility] Last Admin: 04/18/21 15:35 Dose: Not Given Documented by: - Exam General: Alert, Oriented Neck: Supple Lungs: Clear to Auscultation Cardiovascular: Regular Rate, Regular Rhythm GI/Abdominal Exam: Normal Bowel Sounds, Soft, Non-Tender Extremities: Non-Tender, No Pedal Edema Skin: Warm, Dry, Intact Neurological: No New Focal Deficit - Patient Data Result Diagrams: 04/26/21 04:50 04/29/21 11:35 Sepsis Event Note - Evaluation Sepsis Screening Result: No Definite Risk - Focused Exam Vital Signs: Vital Signs Temp Temp Pulse Resp BP Pulse Ox Pulse Ox 05/02/21 08:00 36.3 C 68 16 105/61 90 L 05/02/21 04:49 36.7 C 73 20 100/56 L 92 L - Problem List & Annotations (1) Respiratory failure with hypoxia SNOMED Code(s): 43407357618115638 Code(s): J96.91 - RESPIRATORY FAILURE, UNSPECIFIED WITH HYPOXIA Status: Acute Current Visit: Yes (2) COVID-19 SNOMED Code(s): 701693630 Code(s): U07.1 - COVID-19 Status: Acute Current Visit: Yes - Problem List Review Problem List Initiated/Reviewed/Updated: Yes - Assessment Assessment:: Acute hypoxemic respiratory failure due to COVID 19 pneumonia. Completed a course of Dexamethasone and Remdesivir. patient weened off supplemental oxygen. 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 strength is improving, may be able to be discharge home soon Encephalopathy. much improved. On lexapro 10 mg daily. BPH: On home meds DVT prophylaxis On SQ lovenox. dispo: his home home currently has no heat, dispo once safe housing has been arranged.
[2021-05-02] MEDS: Tamsulosin 0.4 MG Cap.ER PO SCH (16:57)
[2021-05-02] MEDS: Terbinafine 250 MG Tab PO SCH (18:25)
[2021-05-02] MEDS: Famotidine 20 MG Tab PO SCH (20:30)
[2021-05-03] MEDS: Pantoprazole 40 MG Tab.CR PO SCH (09:18)
[2021-05-03] MEDS: Enoxaparin 40 MG/0.4 ML Syringe SUBCUT SCH (09:18)
[2021-05-03] MEDS: Finasteride 5 MG Tab PO SCH (09:18)
--- NOTE | 2021-05-03 12:17 | PCM.DCSUM1 ---
Discharge Summary - Discharge Data Discharge Date: 05/03/21 Discharge Disposition: Home, Self-Care 01 Condition: Good - Referral to Home Health Primary Care Physician: PCP None - Discharge Diagnosis/Problem(s) (1) Respiratory failure with hypoxia SNOMED Code(s): [id number] ICD Code: J96.91 - RESPIRATORY FAILURE, UNSPECIFIED WITH HYPOXIA Status: Acute Current Visit: Yes (2) COVID-19 SNOMED Code(s): 028361148 ICD Code: U07.1 - COVID-19 Status: Acute Current Visit: Yes - Patient Summary/Data Consults: Consultations 04/18/21 14:49 Consult to Physical Therapy [PT Evaluation and Treatment] [CONS] Routine Hospital Course: 75-year-old gentleman with no significant past medical history who was admitted for COVID-19 with myopathy. He presented to the ED with generalized weakness, flu like symptoms, cough and shortness of breath. His symptoms had been on for at least 10 days prior to today's admission. He was seen in the ED 2 and 3 days ago for similar symptoms. He progressively felt more short of breath and felt like he needed to return to the hospital for hospitalization. He was diagnosed with COVID 19 three days ago. He denies having any recorded fevers at home. His cousin with whom he lives with also tested positive for covid 19. CTA in the ED was negative for P.E. 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 He was treated with Dexamethasone and remdesivir. During his stay he did develop delirium and required a sitter. He did make gradual improvements in his strength and mentation. He has been weaned off oxygen. Due to concerns about safe living environments the [facility] case management has been consulted and they will be monitoring him at home. - Patient Instructions Diet: Regular Diet as Tolerated Activity: As Tolerated Notify Provider of: Fever, Increased Pain, Nausea and/or Vomiting - Discharge Plan Home Medications: Home Meds Cyanocobalamin (Vitamin B-12) [Cyanocobalamin Injection] 1,000 mcg IM Q90D 05/12/18 [History] Finasteride [Proscar] 5 mg PO DAILY 05/12/18 [History] Pantoprazole Sodium 40 mg PO DAILY 05/12/18 [History] Tamsulosin HCl 0.4 mg PO WITHDINNER 05/12/18 [History] Ascorbic Acid 500 mg PO DAILY 04/18/21 [History] Calcium Carbonate [Calcium] 500 mg PO DAILY 04/18/21 [History] Carboxymethylcellulose Sodium [Refresh Liquigel 1%] 1 drop EYEBOTH QID PRN 04/18/21 [History] Cholecalciferol (Vitamin D3) [Vitamin D3] 25 mcg PO DAILY 04/18/21 [History] Cyanocobalamin (Vitamin B-12) [B-12] 1,000 mcg PO DAILY 04/18/21 [History] Famotidine 20 mg PO BEDTIME 04/18/21 [History] Mineral Oil/Petrolatum,White [Refresh P.M.] 1 applic EYEBOTH BEDTIME PRN 04/18/21 [History] Terbinafine [LamISIL] 250 mg PO Q24H 04/18/21 [History] Zinc 50 mg PO DAILY 04/18/21 [History] Patient Handouts: COVID-19 Frequently Asked Questions, COVID-19 Vaccine Information, COVID-19: How to Protect Yourself and Others - [facility] Referrals: Earl Laurent MD [Ordering Only Provider] - 05/11/21 9:30 am - Discharge Summary/Plan Comment DC Time >30 min.: No Total # of Minutes for Discharge Time: 15 - Patient Data Vitals - Most Recent: Last Vital Signs Temp 36.5 C 05/03/21 07:00 Pulse 76 05/03/21 07:00 Resp 16 05/03/21 07:00 BP 92/59 L 05/03/21 07:00 Pulse Ox 90 L 05/03/21 08:00 Weight - Most Recent: 74.888 kg I&O - Last 24 hours: Intake & Output 05/02/21 05/03/21 05/03/21 22:59 06:59 14:59 Intake Total 500 490 Balance 500 490 Med Orders - Current: Current Medications Albuterol/Ipratropium (Albuterol/Ipratropium 3.0-0.5 Mg/3 Ml Neb Soln) 3 ml NEB Q6HRRT PRN PRN Reason: Dyspnea Artificial Tears (Carboxymethylcellulose Sodium 0.5% Ophth Soln 0.4 Ml Ud Box Of 30) 1 each EYEBOTH QID PRN PRN Reason: Dry Eyes Benzonatate (Benzonatate 100 Mg Cap) 100 mg PO TID PRN PRN Reason: Cough Last Admin: 04/21/21 16:42 Dose: 100 mg Documented by: Enoxaparin Sodium (Enoxaparin 40 Mg/0.4 Ml Syringe) 40 mg SUBCUT DAILY [facility] Last Admin: 05/03/21 09:18 Dose: 40 mg Documented by: Famotidine (Famotidine 20 Mg Tab) 20 mg PO BEDTIME [facility] Last Admin: 05/02/21 20:30 Dose: 20 mg Documented by: Finasteride (Finasteride 5 Mg Tab) 5 mg PO DAILY [facility] Last Admin: 05/03/21 09:18 Dose: 5 mg Documented by: Pantoprazole Sodium (Pantoprazole 40 Mg Tab.Cr) 40 mg PO DAILY [facility] Last Admin: 05/03/21 09:18 Dose: 40 mg Documented by: Mineral Oil/Petrolatum,White [ Refresh P.M.] 3.5 Gm Ointment 1 each EYEBOTH BEDTIME PRN PRN Reason: Dry Eyes Zinc 50 Mg Tablet 1 each PO DAILY [facility] Last Admin: 05/03/21 09:18 Dose: Not Given Documented by: Terbinafine 250 Mg (Tab) 1 each PO Q24H [facility] Last Admin: 05/02/21 18:25 Dose: Not Given Documented by: Tamsulosin HCl (Tamsulosin 0.4 Mg Cap.Er) 0.4 mg PO WITHDINNER [facility] Last Admin: 05/02/21 16:57 Dose: 0.4 mg Documented by: Discontinued Medications Albuterol/Ipratropium (Albuterol/Ipratropium 3.0-0.5 Mg/3 Ml Neb Soln) 3 ml NEB ONETIME ONE Stop: 04/17/21 20:25 Last Admin: 04/17/21 20:35 Dose: 3 ml Documented by: Albuterol/Ipratropium (Albuterol/Ipratropium 3.0-0.5 Mg/3 Ml Neb Soln) 3 ml NEB Q4HRRT [facility] Last Admin: 04/18/21 10:47 Dose: Not Given Documented by: Albuterol/Ipratropium (Albuterol/Ipratropium 3.0-0.5 Mg/3 Ml Neb Soln) 3 ml NEB Q6HRRT [facility] Last Admin: 04/30/21 06:19 Dose: Not Given Documented by: Dexamethasone (Dexamethasone 10 Mg/Ml Sdv) 10 mg IVPUSH ONETIME ONE Stop: 04/17/21 20:36 Last Admin: 04/17/21 20:42 Dose: 10 mg Documented by: Dexamethasone (Dexamethasone 4 Mg Tab) 6 mg PO DAILY [facility] Last Admin: 04/29/21 09:12 Dose: 6 mg Documented by: Dexamethasone (Dexamethasone 4 Mg Tab) 6 mg PO ONETIME ONE Stop: 04/24/21 13:01 Last Admin: 04/24/21 12:53 Dose: 6 mg Documented by: Finasteride (Finasteride 5 Mg Tab) 5 mg PO ONETIME ONE Stop: 04/24/21 13:01 Last Admin: 04/24/21 12:52 Dose: 5 mg Documented by: Sodium Chloride (Normal Saline) 1,000 mls @ 999 mls/hr IV .Bolus ONE Stop: 04/17/21 21:24 Last Admin: 04/17/21 20:35 Dose: 999 mls/hr Documented by: Remdesivir 200 mg/ Sodium (Chloride) 250 mls @ 250 mls/hr IV ONETIME ONE Stop: 04/17/21 23:30 Last Admin: 04/18/21 00:32 Dose: 250 mls/hr Documented by: Remdesivir 200 mg/ Sodium (Chloride) 250 mls @ 250 mls/hr IV ONETIME ONE Stop: 04/22/21 15:05 Last Admin: 04/22/21 17:05 Dose: 250 mls/hr Documented by: Remdesivir 100 mg/ Sodium (Chloride) 100 mls @ 100 mls/hr IV Q24H [facility] Stop: 04/26/21 15:59 Last Admin: 04/26/21 16:34 Dose: 100 mls/hr Documented by: Sodium Chloride (Normal Saline) 500 mls @ 500 mls/hr IV .BOLUS [facility] Last Admin: 04/25/21 15:19 Dose: 500 mls/hr Documented by: Iopamidol (Iopamidol 755 Mg/Ml 500 Ml Multipack Bottle) 100 ml IVPUSH ONETIME STA Stop: 04/17/21 21:29 Last Admin: 04/17/21 21:28 Dose: 100 ml Documented by: Pantoprazole Sodium (Pantoprazole 40 Mg Tab.Cr) 40 mg PO ONETIME ONE Stop: 04/24/21 12:46 Last Admin: 04/24/21 12:52 Dose: 40 mg Documented by: Sodium Chloride (Sodium Chloride 0.9% 10 Ml Syringe) 10 ml FLUSH ASDIRECTED PRN PRN Reason: Keep Vein Open Last Admin: 04/17/21 20:35 Dose: 10 ml Documented by: Sodium Chloride (Sodium Chloride 0.9% 2.5 Ml Syringe) 2.5 ml FLUSH ASDIRECTED PRN PRN Reason: Keep Vein Open Last Admin: 04/17/21 20:35 Dose: 2.5 ml Documented by: Terbinafine HCl (Terbinafine 250 Mg Tab) 250 mg PO Q24H [facility] Last Admin: 04/18/21 15:35 Dose: Not Given Documented by:
== END 2021-05-03 13:00 | disposition home or self-care (01) | DRG 177 ==
LOC: MW.ED 20:05 → MW.MS 23:28
PROVIDERS: ADMIT Hospitalist; ATTEND Hospitalist
PROC: XW033E5 Introduction of Remdesivir Anti-infective into Peripheral Vein, Percutaneous Approach, New Technology Group 5 (ICD-10-PCS; principal; 2021-04-17)
PROC: 3E0333Z Introduction of Anti-inflammatory into Peripheral Vein, Percutaneous Approach (ICD-10-PCS; 2021-04-17)
PROC: 3E0DX3Z Introduction of Anti-inflammatory into Mouth and Pharynx, External Approach (ICD-10-PCS; 2021-04-18)
DX: U07.1 COVID-19 (principal); J96.01 Acute respiratory failure with hypoxia; J12.82 Pneumonia due to coronavirus disease 2019; G93.49 Other encephalopathy; H91.93 Unspecified hearing loss, bilateral; Z97.3 Presence of spectacles and contact lenses; J92.0 Pleural plaque with presence of asbestos; G72.9 Myopathy, unspecified; H91.90 Unspecified hearing loss, unspecified ear; N40.0 Benign prostatic hyperplasia without lower urinary tract symptoms; G47.30 Sleep apnea, unspecified; Z79.899 Other long term (current) drug therapy
CPT/HCPCS: 36415; 71275; 80053; 81001; 83735; 84484; 85025; 93005; 96374; 99285; J1100; J7030; Q9967; 71045; 71045-26; 80048; 85379; 86140; 93010; 94640; 96375; 97161-GP; 97530-GP; 99284; A9270-GY; J1650; J7040; J7050; J7620-GY; J8540

== ENCOUNTER 2021-05-03 14:17 | Emergency (ER) | payer OTHER, MEDICARE ==
--- NOTE | 2021-05-03 15:16 | EDM.PDOC ---
ED HPI GENERAL MEDICAL PROBLEM - General Chief Complaint: General Stated Complaint: SHORTNESS OF BREATH Time Seen by Provider: 05/03/21 14:53 Source of Information: Reports: Patient History Limitations: Reports: No Limitations - History of Present Illness INITIAL COMMENTS - FREE TEXT/NARRATIVE: Patient is a 75-year-old male who was recently discharged on hospital today. Patient says he was also to go home when a friend picked him up but the friend thought he did not look well so he brought the back of the emergency department. The patient himself states he feels fine does not know what a friend would not take him home and would prefer to go home. Do not he states that he does not have any heat in his house and admission concerned but he thinks he can get a heater from his cousins. Patient does not have any other complaints or problems. - Related Data Allergies Allergy/AdvReac Type Severity Reaction Status Date / Time No Known Allergies Allergy Verified 05/03/21 14:29 Home Meds: Home Meds Cyanocobalamin (Vitamin B-12) [Cyanocobalamin Injection] 1,000 mcg IM Q90D 05/12/18 [History] Finasteride [Proscar] 5 mg PO DAILY 05/12/18 [History] Pantoprazole Sodium 40 mg PO DAILY 05/12/18 [History] Tamsulosin HCl 0.4 mg PO WITHDINNER 05/12/18 [History] Ascorbic Acid 500 mg PO DAILY 04/18/21 [History] Calcium Carbonate [Calcium] 500 mg PO DAILY 04/18/21 [History] Carboxymethylcellulose Sodium [Refresh Liquigel 1%] 1 drop EYEBOTH QID PRN 04/18/21 [History] Cholecalciferol (Vitamin D3) [Vitamin D3] 25 mcg PO DAILY 04/18/21 [History] Cyanocobalamin (Vitamin B-12) [B-12] 1,000 mcg PO DAILY 04/18/21 [History] Famotidine 20 mg PO BEDTIME 04/18/21 [History] Mineral Oil/Petrolatum,White [Refresh P.M.] 1 applic EYEBOTH BEDTIME PRN 04/18/21 [History] Terbinafine [LamISIL] 250 mg PO Q24H 04/18/21 [History] Zinc 50 mg PO DAILY 04/18/21 [History] Past Medical History HEENT History: Reports: Hard of Hearing, Other (See Below) Other HEENT History: wears glasses, has upper and lower permanent dental bridge, has hearing aides Respiratory History: Reports: Sleep Apnea Other Respiratory History: recently tested for sleep apnea- just getting set up with CPAP Genitourinary History: Reports: BPH Neurological History: Reports: Concussion - Infectious Disease History Infectious Disease History: Reports: None - Past Surgical History GI Surgical History: Reports: EGD Other GI Surgeries/Procedures: was told he has "excess stomach acid" Other Male Surgeries/Procedures: hx of excision of undecended testicle, excision of Gynecomastia Social & Family History - Family History Family Medical History: No Pertinent Family History - Tobacco Use Tobacco Use Status *Q: Never Tobacco User - Caffeine Use Caffeine Use: Reports: None - Recreational Drug Use Recreational Drug Use: No ED ROS GENERAL - Review of Systems Review Of Systems: See Below Constitutional: Reports: No Symptoms HEENT: Reports: No Symptoms Respiratory: Reports: No Symptoms Cardiovascular: Reports: No Symptoms Endocrine: Reports: No Symptoms GI/Abdominal: Reports: No Symptoms : Reports: No Symptoms Musculoskeletal: Reports: No Symptoms Skin: Reports: No Symptoms Neurological: Reports: No Symptoms Psychiatric: Reports: No Symptoms Hematologic/Lymphatic: Reports: No Symptoms Immunologic: Reports: No Symptoms ED EXAM, GENERAL - Physical Exam Exam: See Below Exam Limited By: No Limitations General Appearance: Alert, WD/WN, No Apparent Distress Ears: Normal External Exam, Normal TMs Nose: Normal Inspection Throat/Mouth: Normal Inspection Head: Atraumatic Respiratory/Chest: No Respiratory Distress Cardiovascular: Normal Peripheral Pulses GI/Abdominal: Normal Bowel Sounds, Soft, Non-Tender Neurological: Alert, Oriented, Normal Cognition, Normal Gait Course - Vital Signs Last Recorded V/S: Last Vital Signs Temp 98.7 F 05/03/21 18:07 Pulse 77 05/03/21 18:07 Resp 18 05/03/21 18:07 BP 104/63 05/03/21 18:07 Pulse Ox 92 L 05/03/21 18:07 - Orders/Labs/Meds Labs: Laboratory Tests 05/03/21 Range/Units 15:57 Influenza Type A RNA NEGATIVE (NEGATIVE) Influenza Type B RNA NEGATIVE (NEGATIVE) SARS-CoV-2 RNA (EMILY) POSITIVE H (NEGATIVE) - Re-Assessments/Exams Free Text/Narrative Re-Assessment/Exam: 05/03/21 18:15 We have had extensive conversation with the pt his friend Luis Angel social services coordinator the hospitalist about what we can do for the patient. Patient was discharged today remains at his baseline does not require admission at this moment we need to find a safe place to send patient has his friend Luis Angel does not think he can drive him to [place]. Nurses been on the phone with patient's sister and we can get him a hotel until she can get him situated. Patient will be discharge. Departure - Departure Time of Disposition: 18:16 Disposition: Home, Self-Care 01 Condition: Good Clinical Impression: General medical exam - Discharge Information *PRESCRIPTION DRUG MONITORING PROGRAM REVIEWED*: Not Applicable *COPY OF PRESCRIPTION DRUG MONITORING REPORT IN PATIENT ANAMIKA: Not Applicable Instructions: Medical Screening Exam Forms: ED Department Discharge Additional Instructions: You presented back to the ER at the being discharged on hospital because you had some difficulty getting a ride home and finding placement. We spoke to your fa philippe members and friends and we come with a plan to get you discharged somewhere safe if you have any other concerning signs or symptoms please return to the ED. The following information is given to patients seen in the emergency department who are being discharged to home. This information is to outline your options for follow-up care. We provide all patients seen in our emergency department wi th a follow-up referral. The need for follow-up, as well as the timing and circumstances, are variable depending upon the specifics of your emergency department visit. If you don't have a primary care physician on staff, we will provide you with a referral. We always advise you to contact your personal physician following an emergency department visit to inform them of the circumstance of the visit and for follow-up with them and/or the need for any referrals to a consulting specialist. The emergency department will also refer you to a specialist when appropriate. This referral assures that you have the opportunity for follow-up care with a specialist. All of these measure are taken in an effort to provide you with optimal care, which includes your follow-up. Under all circumstances we always encourage you to contact your private physician who remains a resource for coordinating your care. When calling for follow-up care, please make the office aware that this follow-up is from your recent emergency room visit. If for any reason you are refused follow-up, please contact the [facility] Emergency Department at and asked to speak to the emergency department charge nurse. Please follow up with your primary care physician. If you do not have a primary care physician, see below: [facility] [address], [place] [address] [facility] [address] [place] [address] Sepsis Event Note (ED) - Focused Exam Vital Signs: Vital Signs Temp Pulse Resp BP Pulse Ox 05/03/21 18:07 98.7 F 77 18 104/63 92 L 05/03/21 15:54 97.6 F 84 18 96/67 92 L 05/03/21 14:52 80 117/76 90 L 05/03/21 14:31 98.2 F 90 17 101/58 L 92 L - Assessment/Plan Plan: Patient is a 75-year-old male who was discharged today at the [facility] for Covid was supposed to go home but her friend brought him back because he thought he did not look well per the patient he feels fine the patient is at his baseline oxygen levels around 92% which is what he was discharged with to be weaned off oxygen. We will speak to social work about options for patient as he also states he does not have much heat in his home.
[2021-05-03 17:56] LABS: CORONAVIRUS COVID-19 NAA POSITIVE (NEGATIVE); INFLUENZA A NAA NEGATIVE (NEGATIVE); INFLUENZA B NAA NEGATIVE (NEGATIVE)
== END 2021-05-03 18:40 | disposition home or self-care (01) ==
LOC: MW.ED 14:17
DX: Z00.8 Encounter for other general examination (principal); Z20.822 Contact with and (suspected) exposure to COVID-19
CPT/HCPCS: 0240U; 99283

== ENCOUNTER 2021-05-07 20:57 | Emergency (ER) | payer OTHER, MEDICARE ==
--- NOTE | 2021-05-07 22:34 | CR ---
Indication: Fell on ice Technique: Two views of the right shoulder Comparison: None Findings: There is no evidence of acute fracture. The glenohumeral and acromioclavicular joints are normally located. The surrounding soft tissues are unremarkable. Patchy opacities are noted in the visualized lungs. Impression: 1. No acute osseous abnormality. 2. Patchy opacities in the visualized lungs. Correlate clinically. Consider dedicated chest imaging. Dictated by Layne Esquivel MD @ 05/07/2021 10:32:45 PM (Electronically Signed)
--- NOTE | 2021-05-08 01:54 | EDM.PDOC ---
ED HPI GENERAL MEDICAL PROBLEM - General Chief Complaint: Upper Extremity Injury/Pain Stated Complaint: FELL Time Seen by Provider: 05/08/21 01:50 Source of Information: Reports: Patient History Limitations: Reports: No Limitations - History of Present Illness INITIAL COMMENTS - FREE TEXT/NARRATIVE: 75-year-old male presents with right shoulder pain after he slipped on a curb p rior to arrival, landing on his right elbow. He denies elbow pain. He denies hitting his head, headache, neck pain. His pain is localized to his right proximal humerus. He is right-handed. Pain is moderate, constant, located onset secondary to the fall, nonradiating, no alleviating factors, exacerbated with range of motion. ROS: A 10-point review of systems, other than pertinent positives and negatives as stated per HPI, is otherwise negative Past medical history: No additional pertinent history Past Surgical history: No additional pertinent history Social history: No additional pertinent history Family history: No additional pertinent history PHYSICAL EXAM General: AOx4, GCS = 15, moderate distress HEENT: dry mucous membrane Neck: supple, no meningismus, no Kernig or Brudzinski Cardiac: S1S2 RRR Respiratory: CTAB, no crackles or rales, no wheezing Abdomen: Soft, nontender, no rebound or guarding, nondistended, no pulsatile mass. Back: nontender Musculoskeletal: NVI distally, proximal humerus tender to palpation, no tenderness to midshaft humerus, elbow, forearm. No deformity Neuro: No focal deficits, CN 2 - 12 WNL. Right Shoulder Pain Score (Numeric/FACES): 3 - Related Data Allergies Allergy/AdvReac Type Severity Reaction Status Date / Time No Known Allergies Allergy Verified 05/07/21 21:23 Home Meds: Home Meds Cyanocobalamin (Vitamin B-12) [Cyanocobalamin Injection] 1,000 mcg IM Q90D 05/12/18 [History] Finasteride [Proscar] 5 mg PO DAILY 05/12/18 [History] Pantoprazole Sodium 40 mg PO DAILY 05/12/18 [History] Tamsulosin HCl 0.4 mg PO WITHDINNER 05/12/18 [History] Ascorbic Acid 500 mg PO DAILY 04/18/21 [History] Calcium Carbonate [Calcium] 500 mg PO DAILY 04/18/21 [History] Carboxymethylcellulose Sodium [Refresh Liquigel 1%] 1 drop EYEBOTH QID PRN 04/18/21 [History] Cholecalciferol (Vitamin D3) [Vitamin D3] 25 mcg PO DAILY 04/18/21 [History] Cyanocobalamin (Vitamin B-12) [B-12] 1,000 mcg PO DAILY 04/18/21 [History] Famotidine 20 mg PO BEDTIME 04/18/21 [History] Mineral Oil/Petrolatum,White [Refresh P.M.] 1 applic EYEBOTH BEDTIME PRN 04/18/21 [History] Terbinafine [LamISIL] 250 mg PO Q24H 04/18/21 [History] Zinc 50 mg PO DAILY 04/18/21 [History] Naproxen [Naprosyn] 500 mg PO Q12HR #30 tab 05/08/21 [Rx] Past Medical History HEENT History: Reports: Hard of Hearing, Other (See Below) Other HEENT History: wears glasses, has upper and lower permanent dental bridge, has hearing aides Respiratory History: Reports: Sleep Apnea Other Respiratory History: recently tested for sleep apnea- just getting set up with CPAP Genitourinary History: Reports: BPH Neurological History: Reports: Concussion - Infectious Disease History Infectious Disease History: Reports: None - Past Surgical History GI Surgical History: Reports: EGD Other GI Surgeries/Procedures: was told he has "excess stomach acid" Other Male Surgeries/Procedures: hx of excision of undecended testicle, excision of Gynecomastia Social & Family History - Family History Family Medical History: No Pertinent Family History - Caffeine Use Caffeine Use: Reports: None Review of Systems - Review of Systems Review Of Systems: See Below (see dictation) ED EXAM, GENERAL - Physical Exam Exam: See Below (see dictation) ED TRAUMA EXTREMITY PROCEDURES - Splinting Right Upper Extremity Splint Site: Right shoulder Pre-Procedure NV Status: Normal Post-Procedure NV Status: Normal Splint Design: Sling Applied & Form Fitted By: Nurse Provider Post-Splint Application NV Check: NV Status Normal, Good Position Complications: No Course - Vital Signs Last Recorded V/S: Last Vital Signs Temp 98.5 F 05/07/21 21:23 Pulse 95 05/07/21 21:23 Resp 16 05/07/21 21:23 BP 113/69 05/07/21 21:23 Pulse Ox 92 L 05/07/21 21:23 - Re-Assessments/Exams Free Text/Narrative Re-Assessment/Exam: 05/08/21 01:52 After placement in the sling in the ER, the patient improved and is currently stable for discharge. I performed a repeat exam and did not appreciate new abnormal findings. Patient exhibits normal vital signs and has a normal gait on road test. I advised the patient to return to the ER for reevaluation if symptoms worsened, including fever, worsening pain, or any other worrisome symptoms. I instructed the patient to follow up with orthopedics within 2-3 days. MEDICAL DECISION MAKING: This patient was evaluated during the COVID-19 pandemic where resources and capacity might be affected. I reviewed the patients past medical records, lab and radiographic findings. I discussed the case with the patient. My differential diagnosis included: Fracture, dislocation, rotator cuff injury. X-ray does not demonstrate fracture dislocation. The affected extremity demonstrated good distal perfusion, warm, pink, cap refill <2 seconds, compartments soft, pulses equal in both extremities. Patient understands to return immediately for worsening pain, swelling, fever, numbness/tingling or other concerns and to f/u with orthopedics if no improvement of symptoms within 3-5 days. Departure - Departure Time of Disposition: 01:53 Disposition: Home, Self-Care 01 Condition: Good Clinical Impression: Sprain of shoulder, Rotator cuff injury - Discharge Information *PRESCRIPTION DRUG MONITORING PROGRAM REVIEWED*: Not Applicable *COPY OF PRESCRIPTION DRUG MONITORING REPORT IN PATIENT ANAMIKA: Not Applicable Prescriptions: Naproxen [Naprosyn] 500 mg PO Q12HR #30 tab Instructions: How to use a Sling, [id number], Shoulder Pain, [id number], Shoulder Sprain Referrals: PCP,None [Primary Care Provider] - Additional Instructions: The need for follow-up, as well as the timing and circumstances, are variable depending upon the specifics of your emergency department visit. If you don't have a primary care physician on staff, we will provide you with a referral. We always advise you to contact your personal physician following an emergency department visit to inform them of the circumstance of the visit and for follow-up with them and/or the need for any referrals to a consulting specialist. The emergency department will also refer you to a specialist when appropriate. This referral assures that you have the opportunity for follow-up care with a specialist. All of these measure are taken in an effort to provide you with optimal care, which includes your follow-up. Under all circumstances we always encourage you to contact your private physician who remains a resource for coordinating your care. When calling for follow-up care, please make the office aware that this follow-up is from your recent emergency room visit. If for any reason you are refused follow-up, please contact the [facility] Emergency Department at and asked to speak to the emergency department charge nurse. If you do not have a primary care doctor, please follow up with the clinics below within 3-5 days. [facility] [address], [address] [place] [address] Sepsis Event Note (ED) - Evaluation Sepsis Screening Result: No Definite Risk - Focused Exam Vital Signs: Vital Signs Temp Pulse Resp BP Pulse Ox 05/07/21 21:23 98.5 F 95 16 113/69 92 L
== END 2021-05-08 02:05 | disposition home or self-care (01) ==
LOC: MW.ED 20:57
DX: S43.421A Sprain of right rotator cuff capsule, initial encounter (principal); N40.0 Benign prostatic hyperplasia without lower urinary tract symptoms; Z79.899 Other long term (current) drug therapy; W01.0XXA Fall on same level from slipping, tripping and stumbling without subsequent striking against object, initial encounter
CPT/HCPCS: 73030-26-RT; 73030-RT; 99283

== ENCOUNTER 2023-05-24 17:50 | Emergency (ER) | payer OTHER, MEDICARE ==
[2023-05-24 18:45] LABS: CORONAVIRUS COVID-19 NAA NEGATIVE (NEGATIVE); INFLUENZA A NAA NEGATIVE (NEGATIVE); INFLUENZA B NAA NEGATIVE (NEGATIVE); RESPIRATORY SYNCYTIAL VIR NAA NEGATIVE (NEGATIVE)
[2023-05-24] MEDS ORDERED: Azithromycin 250 MG Tab PO ONE (19:24)
== END 2023-05-24 19:31 | disposition home or self-care (01) ==
LOC: MW.ED 17:50
DX: J01.90 Acute sinusitis, unspecified (principal); Z79.899 Other long term (current) drug therapy; Z20.822 Contact with and (suspected) exposure to COVID-19
CPT/HCPCS: 0241U; 99283

== ENCOUNTER 2023-05-30 21:09 | Emergency (ER) | payer OTHER, MEDICARE ==
[2023-05-30 22:44] LABS: CORONAVIRUS COVID-19 NAA NEGATIVE (NEGATIVE); INFLUENZA A NAA NEGATIVE (NEGATIVE); INFLUENZA B NAA NEGATIVE (NEGATIVE)
== END 2023-05-30 22:49 | disposition home or self-care (01) ==
LOC: MW.ED 21:09
DX: J06.9 Acute upper respiratory infection, unspecified (principal); T36.3X5A Adverse effect of macrolides, initial encounter; Z79.899 Other long term (current) drug therapy
CPT/HCPCS: 0240U; 71046; 99283

== ENCOUNTER 2023-06-05 19:58 | Emergency (ER) | payer OTHER, MEDICARE ==
[2023-06-05] MEDS ORDERED: Benzonatate 100 MG Cap PO STA (20:34)
== END 2023-06-05 20:47 | disposition home or self-care (01) ==
LOC: MW.ED 19:58
DX: R05.2 Subacute cough (principal); K21.9 Gastro-esophageal reflux disease without esophagitis; Z79.899 Other long term (current) drug therapy
CPT/HCPCS: 99283; A9270

== ENCOUNTER 2023-06-21 18:00 | Emergency (ER) | payer OTHER, MEDICARE ==
[2023-06-21] MEDS ORDERED: Lidocaine 2% Viscous Solution 15 ML UD PO ONE (18:40)
[2023-06-21] MEDS ORDERED: Aluminum Hydroxide/Magnesium Hydroxide/Simethicone XS Susp 30 ML Cup PO ONE (18:40)
[2023-06-21 18:59] LABS: BASOPHILS ABSOLUTE AUTO 0.07 K/uL (0.00-0.20); EOSINOPHILS ABSOLUTE AUTO 0.22 K/uL (0.00-0.45); EOSINOPHILS PERCENT AUTO 3.2 % (0.0-6.0); HEMATOCRIT 42.1 % (42.0-52.0); HEMOGLOBIN 14.4 g/dL (14.0-18.0); IMMATURE GRAN ABSOLUTE AUTO 0.01 K/uL (0.00-0.05); IMMATURE GRAN PERCENT AUTO 0.1 % (0.0-0.4); LYMPHOCYTES ABSOLUTE AUTO 1.81 K/uL (1.00-4.80); LYMPHOCYTES PERCENT AUTO 26.5 % (24.0-44.0); MEAN CORPUSCULAR HEMOGLOBIN 30.4 pg (28.0-32.0); MEAN CORPUSCULAR HGB CONC 34.2 g/dL (32.0-36.0); MEAN PLATELET VOLUME 10.2 fL (9.4-12.4); MONOCYTES ABSOLUTE AUTO 0.51 K/uL (0.00-0.80); MONOCYTES PERCENT AUTO 7.5 % (0.0-8.0); NEUTROPHILS PERCENT AUTO 61.7 % (41.0-71.0); PLATELET COUNT,PLT 223 K/uL (150-400); RED BLOOD CELL COUNT 4.73 M/uL (4.52-5.90); WHITE BLOOD CELL COUNT,WBC 6.82 K/uL (3.9-11.3)
[2023-06-21 19:14] LABS: CORONAVIRUS COVID-19 NAA NEGATIVE (NEGATIVE); INFLUENZA A NAA NEGATIVE (NEGATIVE); INFLUENZA B NAA NEGATIVE (NEGATIVE); RESPIRATORY SYNCYTIAL VIR NAA NEGATIVE (NEGATIVE)
[2023-06-21 19:28] LABS: ALBUMIN 3.4 g/dL (3.4-5.0); BILIRUBIN TOTAL 0.3 mg/dL (0.2-1.0); CALCIUM 8.3 mg/dL (8.5-10.1); CARBON DIOXIDE,CO2 25.9 mmol/L (21.0-32.0); EST CRCL DRUG DOSING (CG) 61.86 mL/min; POTASSIUM,K 4.1 mmol/L (3.5-5.1); PROTEIN TOTAL,TP 6.9 g/dL (6.4-8.2)
== END 2023-06-21 20:21 | disposition home or self-care (01) ==
LOC: MW.ED 18:00
DX: R13.10 Dysphagia, unspecified (principal); K21.9 Gastro-esophageal reflux disease without esophagitis; Z79.899 Other long term (current) drug therapy
CPT/HCPCS: 0241U; 36415; 80053; 83690; 84484; 85025; 87651; 93005; 99283; A9270

== ENCOUNTER 2023-07-05 14:37 | Emergency (ER) | payer OTHER, MEDICARE | END 2023-07-05 15:45 | disposition home or self-care (01) | LOC: MW.ED 14:37 | DX: R19.7 Diarrhea, unspecified (principal); K21.9 Gastro-esophageal reflux disease without esophagitis; Z79.899 Other long term (current) drug therapy | CPT/HCPCS: 99282; 99283 ==

== ENCOUNTER 2023-09-01 13:31 | Emergency (ER) | payer OTHER, MEDICARE | END 2023-09-01 14:15 | disposition home or self-care (01) | LOC: MW.ED 13:31 | DX: Z13.9 Encounter for screening, unspecified (principal); K21.9 Gastro-esophageal reflux disease without esophagitis; Z79.899 Other long term (current) drug therapy; Z75.8 Other problems related to medical facilities and other health care | CPT/HCPCS: 99281; 99283 ==

== ENCOUNTER 2023-12-15 17:50 | Emergency (ER) | payer OTHER, MEDICARE ==
[2023-12-15] MEDS: Ondansetron 4 MG/2 ML SDV IVPUSH STA (19:11)
[2023-12-15] MEDS: Sodium Chloride 0.9% 1,000 ML IV STA (19:11)
[2023-12-15 19:24] LABS: BASOPHILS ABSOLUTE AUTO 0.04 K/uL (0.00-0.20); BASOPHILS PERCENT AUTO 0.4 % (0.0-1.0); EOSINOPHILS ABSOLUTE AUTO 0.01 K/uL (0.00-0.45); EOSINOPHILS PERCENT AUTO 0.1 % (0.0-6.0); HEMATOCRIT 42.7 % (42.0-52.0); HEMOGLOBIN 14.5 g/dL (14.0-18.0); IMMATURE GRAN ABSOLUTE AUTO 0.03 K/uL (0.00-0.05); IMMATURE GRAN PERCENT AUTO 0.3 % (0.0-0.4); LYMPHOCYTES ABSOLUTE AUTO 1.35 K/uL (1.00-4.80); LYMPHOCYTES PERCENT AUTO 13.3 % (24.0-44.0); MEAN CORPUSCULAR VOLUME 88.2 fL (83.0-99.0); MEAN PLATELET VOLUME 10.5 fL (9.4-12.4); MONOCYTES ABSOLUTE AUTO 0.52 K/uL (0.00-0.80); MONOCYTES PERCENT AUTO 5.1 % (0.0-8.0); NEUTROPHILS ABSOLUTE AUTO 8.22 K/uL (1.80-7.70); NEUTROPHILS PERCENT AUTO 80.8 % (41.0-71.0); PLATELET COUNT,PLT 243 K/uL (150-400); RED BLOOD CELL COUNT 4.84 M/uL (4.52-5.90); WHITE BLOOD CELL COUNT,WBC 10.17 K/uL (3.9-11.3)
[2023-12-15 19:57] LABS: A/G RATIO 1.3 (0.9-1.6); ALBUMIN 3.9 g/dL (3.4-5.0); BILIRUBIN TOTAL 0.8 mg/dL (0.2-1.0); CALCIUM 9.2 mg/dL (8.5-10.1); CARBON DIOXIDE,CO2 24.7 mmol/L (21.0-32.0); CREATININE 0.9 mg/dL (0.8-1.3); EST CRCL DRUG DOSING (CG) 67.65 mL/min; POTASSIUM,K 4.5 mmol/L (3.5-5.1)
[2023-12-15] MEDS: Iopamidol 755 MG/ML 500 ML Multipack Bottle IVPUSH STA (20:29)
[2023-12-15 21:26] LABS: APPEARANCE,URINE CLEAR; BILIRUBIN,URINE NEGATIVE (NEGATIVE); COLOR,URINE YELLOW; GLUCOSE,URINE NEGATIVE (NEGATIVE); KETONES,URINE 15 mg/dL (NEGATIVE); LEUKOCYTE ESTERASE,URINE NEGATIVE (NEGATIVE); NITRITE,URINE NEGATIVE (NEGATIVE); OCCULT BLOOD,URINE TRACE-INTACT (NEGATIVE); PH,URINE 5.5 (5.0-8.0); PROTEIN,URINE NEGATIVE (NEGATIVE); UROBILINOGEN,URINE 0.2 EU/dL (<2.0)
[2023-12-15 21:39] LABS: BACTERIA,URINE FEW (NEGATIVE); EPITHELIAL CELLS,URINE NOT SEEN (NONE-FEW); MUCUS,URINE LIGHT (NONE-MOD); WBC,URINE 0-1 (0-5/HPF)
== END 2023-12-15 22:16 | disposition home or self-care (01) ==
LOC: MW.ED 17:50
DX: R10.13 Epigastric pain (principal); K21.9 Gastro-esophageal reflux disease without esophagitis; Z79.899 Other long term (current) drug therapy; Z75.8 Other problems related to medical facilities and other health care
CPT/HCPCS: 36415; 74177; 80053; 81001; 83690; 84484; 85025; 93005; 96361; 96374; 99284; J2405; J7030; Q9967

== ENCOUNTER 2024-04-03 19:20 | Emergency (ER) | payer OTHER ==
[2024-04-03] MEDS ORDERED: Sodium Chloride 0.9% 10 ML Syringe FLUSH PRN (19:31)
[2024-04-03] MEDS ORDERED: Sodium Chloride 0.9% 2.5 ML Syringe FLUSH PRN (19:31)
[2024-04-03] MEDS: Acetaminophen 500 MG Tab PO ONE (19:49)
[2024-04-03 19:57] LABS: BASOPHILS ABSOLUTE AUTO 0.06 K/uL (0.00-0.20); EOSINOPHILS ABSOLUTE AUTO 0.35 K/uL (0.00-0.45); EOSINOPHILS PERCENT AUTO 5.7 % (0.0-6.0); HEMOGLOBIN 13.7 g/dL (14.0-18.0); IMMATURE GRAN ABSOLUTE AUTO 0.02 K/uL (0.00-0.05); IMMATURE GRAN PERCENT AUTO 0.3 % (0.0-0.4); LYMPHOCYTES ABSOLUTE AUTO 1.35 K/uL (1.00-4.80); LYMPHOCYTES PERCENT AUTO 21.9 % (24.0-44.0); MEAN CORPUSCULAR HEMOGLOBIN 30.2 pg (28.0-32.0); MEAN CORPUSCULAR HGB CONC 34.3 g/dL (32.0-36.0); MEAN CORPUSCULAR VOLUME 88.1 fL (83.0-99.0); MEAN PLATELET VOLUME 9.8 fL (9.4-12.4); MONOCYTES ABSOLUTE AUTO 0.58 K/uL (0.00-0.80); MONOCYTES PERCENT AUTO 9.4 % (0.0-8.0); NEUTROPHILS ABSOLUTE AUTO 3.81 K/uL (1.80-7.70); NEUTROPHILS PERCENT AUTO 61.7 % (41.0-71.0); PLATELET COUNT,PLT 236 K/uL (150-400); RED BLOOD CELL COUNT 4.54 M/uL (4.52-5.90); WHITE BLOOD CELL COUNT,WBC 6.17 K/uL (3.9-11.3)
[2024-04-03 20:24] LABS: A/G RATIO 1.1 (0.9-1.6); ALBUMIN 3.4 g/dL (3.4-5.0); BILIRUBIN TOTAL 0.5 mg/dL (0.2-1.0); CALCIUM 8.8 mg/dL (8.5-10.1); CARBON DIOXIDE,CO2 29.9 mmol/L (21.0-32.0); CREATININE 1.1 mg/dL (0.8-1.3); EST CRCL DRUG DOSING (CG) 55.35 mL/min; MAGNESIUM 1.7 mg/dL (1.8-2.4); POTASSIUM,K 3.9 mmol/L (3.5-5.1); PROTEIN TOTAL,TP 6.4 g/dL (6.4-8.2)
== END 2024-04-03 21:07 | disposition home or self-care (01) ==
LOC: MW.ED 19:20
DX: J06.9 Acute upper respiratory infection, unspecified (principal); R07.2 Precordial pain; K21.9 Gastro-esophageal reflux disease without esophagitis; Z79.52 Long term (current) use of systemic steroids; Z79.899 Other long term (current) drug therapy
CPT/HCPCS: 36415; 71046; 80053; 83690; 83735; 84484; 85025; 87428; 93005; 99285; A9270

== ENCOUNTER 2024-04-03 21:36 | Emergency (ER) | payer OTHER ==
[2024-04-03] MEDS: Alum Hydrox/Mag Hydrox/Simeth 15 ML, Lidocaine 2% 5 ML PO ONE (22:14)
[2024-04-03] MEDS: Ondansetron 4 MG Tab.DIS PO ONE (22:14)
[2024-04-03] MEDS: Famotidine 20 MG Tab PO ONE (22:14)
== END 2024-04-03 23:40 | disposition home or self-care (01) ==
LOC: MW.ED 21:36
DX: R11.0 Nausea (principal); K21.9 Gastro-esophageal reflux disease without esophagitis; Z79.52 Long term (current) use of systemic steroids; Z79.899 Other long term (current) drug therapy
CPT/HCPCS: 36415; 84484; 99283; A9270